=== PATIENT | male | born 1960 | race Caucasian/White ===

== ENCOUNTER → 2017-11-03 | Outpatient (CLI) | payer MEDICARE ==
[~2017-11-03] MED LIST: ACET1TAB25 PO; ADV500 IH; CARB-38 PO; CHOL5POW MC; CYAN1TAB14 PO; DEXL30CA3 PO; DIAZ10TA PO; ERGO500014 PO; FENO54TA6 PO; FLUT16H NASAL; GABA-318 PO; HYDR200T4 PO; MAGN500C15 PO; METO10TA3 PO; MONT10TA24 PO; PRAS50TA PO; PRED20TA3 PO; ROPI0.5T5 PO; SERT100T12 PO; TRAM50TA4 PO; TRAZ-147 PO; TYL3 PO; VITA100T PO; ZALE5CAP6 PO
== END | disposition home or self-care (01) ==
LOC: EDSEX → RAH 08:58 → EDSEX 09:00
PROVIDERS: ATTEND Family Medicine
DX: J44.9 Chronic obstructive pulmonary disease, unspecified (principal); D86.9 Sarcoidosis, unspecified
CPT/HCPCS: 93306

== ENCOUNTER → 2017-11-10 | Outpatient (CLI) | payer MEDICARE | END | disposition home or self-care (01) | LOC: EDSEX → RAH 12:42 | PROVIDERS: ATTEND Family Medicine | DX: J44.9 Chronic obstructive pulmonary disease, unspecified (principal); D86.9 Sarcoidosis, unspecified; R41.3 Other amnesia | CPT/HCPCS: 70551 ==

== ENCOUNTER 2017-12-06 11:22 | Observation (INO) | payer MEDICARE ==
[~2017-12-06] VITALS: Ht 167.6 cm; Wt 75.5 kg
[2017-12-06] MEDS ORDERED: ASPIRIN 325 MG TABLET ONE (11:55)
[2017-12-06 11:58] LABS: BASOPHILS % (AUTO) 0.2 % (0.0-5.0); EOSINOPHILS % (AUTO) 0.1 % (0.0-8.0); HEMATOCRIT 38.4 % (42-54); LYMPHOCYTES % (AUTO) 4.9 % (21.0-51.0); MEAN CORPUSCULAR HEMOGLOBIN 34.3 pg (27.0-33.0); MEAN CORPUSCULAR HGB CONC 35.3 g/dL (32.0-36.0); MEAN CORPUSCULAR VOLUME 97.2 fL (79-99); MONOCYTES % (AUTO) 2.8 % (3.0-13.0); PLATELET COUNT (AUTO) 210 K/uL (130-400); RED BLOOD CELL COUNT(AUTO) 3.95 MIL/uL (4.50-6.20); RED CELL DISTRIBUTION WIDTH 18.2 % (11.0-15.5); WHITE BLOOD COUNT (AUTO) 8.8 K/uL (4.8-10.8)
[2017-12-06 12:06] LABS: POTASSIUM 3.9 mmol/L (3.5-5.1)
[2017-12-06 12:11] LABS: ALBUMIN 3.1 g/dL (3.5-5.0); BILIRUBIN,TOTAL 0.6 mg/dL (0.2-1.0); TOTAL PROTEIN, SERUM 6.3 g/dL (6.0-8.3)
[2017-12-06] MEDS ORDERED: MORPHINE SULFATE 4 MG/1ML SYG ONE (15:22)
[2017-12-06 16:00] VITALS: BP 119/75
[2017-12-06 17:25] LABS: CREATINE KINASE MB < 0.5 ng/mL (0.5-3.6); CREATINE KINASE, TOTAL 22 U/L (21-232); MYOGLOBIN 15 ng/mL (10-92); TROPONIN I < 0.04 ng/mL (0.00-0.06)
[2017-12-06 20:00] VITALS: BP 114/68
[2017-12-06] MEDS: NITROGLYCERIN 1GM/1 INCH PACKET TD SCH (20:32)
[2017-12-06 20:45] LABS: CREATINE KINASE MB < 0.5 ng/mL (0.5-3.6); CREATINE KINASE, TOTAL 22 U/L (21-232); MYOGLOBIN 15 ng/mL (10-92); TROPONIN I < 0.04 ng/mL (0.00-0.06)
[2017-12-06] MEDS ORDERED: NITROGLYCERIN 0.2 MG/HR PATCH TD SCH (21:00)
[2017-12-06] MEDS: MORPHINE SULFATE 4 MG/1ML SYG IV PRN (23:44)
[2017-12-07] VITALS (7 sets, daily range): BP systolic 103–130; BP diastolic 56–75
[2017-12-07] MEDS: NITROGLYCERIN 1GM/1 INCH PACKET TD SCH ×4 (04:01→23:22)
[2017-12-07 05:01] LABS: CREATINE KINASE MB < 0.5 ng/mL (0.5-3.6); CREATINE KINASE, TOTAL 19 U/L (21-232); MYOGLOBIN 16 ng/mL (10-92); TROPONIN I < 0.04 ng/mL (0.00-0.06)
[2017-12-07] MEDS ORDERED: TRAMADOL HCL 50 MG TABLET PO SCH (05:15)
[2017-12-07] MEDS ORDERED: VITA100T PO (05:20)
[2017-12-07] MEDS ORDERED: MAGN500C15 PO (05:20)
[2017-12-07] MEDS ORDERED: TRAM50TA4 PO (05:20)
[2017-12-07] MEDS ORDERED: CHOL5POW MC (05:20)
[2017-12-07] MEDS ORDERED: FLUT16H NASAL (05:20)
[2017-12-07] MEDS ORDERED: METO10TA3 PO (05:20)
[2017-12-07] MEDS ORDERED: PRAS50TA PO (05:20)
[2017-12-07] MEDS ORDERED: ERGO500014 PO (05:20)
[2017-12-07] MEDS ORDERED: ZALE5CAP6 PO (05:20)
[2017-12-07] MEDS ORDERED: TRAZ-147 PO (05:20)
[2017-12-07] MEDS ORDERED: FENO54TA6 PO (05:20)
[2017-12-07] MEDS ORDERED: PRED20TA3 PO (05:20)
[2017-12-07] MEDS ORDERED: CARB-38 PO (05:20)
[2017-12-07] MEDS ORDERED: ROPI0.5T5 PO (05:20)
[2017-12-07] MEDS ORDERED: ADV500 IH (05:20)
[2017-12-07] MEDS ORDERED: DEXL30CA3 PO (05:20)
[2017-12-07] MEDS ORDERED: DIAZ10TA PO (05:20)
[2017-12-07] MEDS: DIAZEPAM 5 MG TABLET PO SCH ×3 (06:45→21:00)
[2017-12-07] MEDS: PRASTERONE 50 MG PO SCH ×2 (09:00→21:00)
[2017-12-07] MEDS: ROPINIROLE HCL 1 MG TABLET PO SCH ×3 (09:00→21:00)
[2017-12-07] MEDS ORDERED: PREDNISONE 20 MG TABLET PO SCH (09:00)
[2017-12-07] MEDS ORDERED: METOCLOPRAMIDE 10 MG TABLET PO SCH (09:00)
[2017-12-07] MEDS ORDERED: CHOLESTYRAMINE MC SCH (09:00)
[2017-12-07] MEDS ORDERED: DEXLANSOPRAZOLE 30 MG PO SCH (09:00)
[2017-12-07] MEDS ORDERED: FENOFIBRATE 54 MG PO SCH (09:00)
[2017-12-07] MEDS ORDERED: FLUTICASONE PROPIONATE 50MCG/SPRAY 16 GM BOTTLE EN SCH (09:00)
[2017-12-07] MEDS ORDERED: ERGOCALCIFEROL (VITAMIN D2) 50,000 UNIT CAPSULE PO SCH (09:00)
[2017-12-07] MEDS ORDERED: IPRATROPIUM/ALBUTEROL SULFATE 3 ML SOLUTION IH ONE (09:50)
[2017-12-07] MEDS ORDERED: BUDESONIDE 0.5 MG/2 ML INH IH ONE (09:51)
[2017-12-07] MEDS: MORPHINE SULFATE 4 MG/1ML SYG IV PRN ×2 (11:02→18:38)
[2017-12-07] MEDS ORDERED: TRAMADOL HCL 50 MG TABLET PO PRN (13:15)
[2017-12-07] MEDS: ALBUTEROL SULFATE 0.083% 2.5 MG/3 ML INH IH SCH ×3 (15:03→23:56)
[2017-12-07] MEDS ORDERED: REGADENOSON 0.4 MG/5 ML PF SYG IVP SCH (15:45)
[2017-12-07] MEDS ORDERED: BUDESONIDE 0.5 MG/2 ML INH IH SCH (18:00)
[2017-12-07] MEDS: VITAMIN B COMPLEX 1 CAPSULE PO SCH ×2 (18:46→21:00)
[2017-12-07] MEDS: CARBIDOPA-LEVODOPA 25-100 TAB PO SCH ×2 (18:47→21:00)
[2017-12-07] MEDS: MAGNESIUM OXIDE 400 MG TABLET PO SCH ×2 (18:47→21:00)
[2017-12-07] MEDS ORDERED: SERT100T12 PO (18:57)
[2017-12-07] MEDS ORDERED: ZALEPLON 5 MG PO SCH (21:00)
[2017-12-07] MEDS ORDERED: TRAZODONE HCL 100 MG TABLET PO SCH (21:00)
[2017-12-08 03:00] VITALS: BP 121/75
[2017-12-08] MEDS: NITROGLYCERIN 1GM/1 INCH PACKET TD SCH (03:00)
[2017-12-08] MEDS: MORPHINE SULFATE 4 MG/1ML SYG IV PRN (05:47)
[2017-12-08] MEDS ORDERED: SERTRALINE HCL 50 MG TABLET PO SCH (09:00)
== END 2017-12-08 08:15 | disposition home or self-care (01) ==
LOC: EDSEX → EDH 11:22 → EDHIP 14:33 → 3CH 15:44
PROVIDERS: ADMIT Internal Medicine; ATTEND Internal Medicine
DX: R07.89 Other chest pain (principal); D86.9 Sarcoidosis, unspecified; I12.9 Hypertensive chronic kidney disease with stage 1 through stage 4 chronic kidney disease, or unspecified chronic kidney disease; N18.9 Chronic kidney disease, unspecified; M47.819 Spondylosis without myelopathy or radiculopathy, site unspecified; J44.9 Chronic obstructive pulmonary disease, unspecified; E78.5 Hyperlipidemia, unspecified; F17.210 Nicotine dependence, cigarettes, uncomplicated; Z79.899 Other long term (current) drug therapy
CPT/HCPCS: 36415 ×2; 70450; 71045; 71250; 72146; 74176; 78452; 80053; 82550 ×4; 82553 ×3; 83874 ×3; 84484 ×5; 85025; 87804 ×2; 93005 ×4; 93017; 94640 ×4; 94664; 96374; 96376 ×2; 99285; A9500 ×2; G0378 ×42; J2270 ×5; J2785

== ENCOUNTER 2018-01-11 22:52 | Inpatient (IN) | payer MEDICARE ==
[~2018-01-11] VITALS: Ht 167.6 cm; Wt 76.4 kg
[~2018-01-11 22:52] MED LIST changes: -ACET1TAB25 PO; -CYAN1TAB14 PO; -GABA-318 PO; -HYDR200T4 PO; -MONT10TA24 PO; -TYL3 PO
[2018-01-11] MEDS ORDERED: ASPIRIN 325 MG TABLET ONE (23:26)
[2018-01-11 23:32] LABS: BASOPHILS % (AUTO) 0.3 % (0.0-5.0); EOSINOPHILS % (AUTO) 0.2 % (0.0-8.0); HEMATOCRIT 36.1 % (42-54); LYMPHOCYTES % (AUTO) 8.9 % (21.0-51.0); MEAN CORPUSCULAR HEMOGLOBIN 31.7 pg (27.0-33.0); MEAN CORPUSCULAR HGB CONC 34.2 g/dL (32.0-36.0); MEAN CORPUSCULAR VOLUME 92.5 fL (79-99); MONOCYTES % (AUTO) 5.7 % (3.0-13.0); NEUTROPHILS % (AUTO) 84.9 % (40.0-77.0); PLATELET COUNT (AUTO) 211 K/uL (130-400); RED BLOOD CELL COUNT(AUTO) 3.91 MIL/uL (4.50-6.20); RED CELL DISTRIBUTION WIDTH 16.2 % (11.0-15.5); WHITE BLOOD COUNT (AUTO) 12.7 K/uL (4.8-10.8)
[2018-01-11 23:46] LABS: CREATININE 0.9 mg/dL (0.5-1.5); POTASSIUM 3.5 mmol/L (3.5-5.1)
[2018-01-11 23:50] LABS: INR 1.27 (0.85-1.15); PARTIAL THROMBOPLASTIN TIME 26.4 SEC (26.3-35.5); PROTHROMBIN TIME 13.3 SEC (9.6-11.6)
[2018-01-12 00:08] LABS: ALBUMIN 3.1 g/dL (3.5-5.0); BILIRUBIN,TOTAL 0.7 mg/dL (0.2-1.0); CREATINE KINASE MB 0.6 ng/mL (0.5-3.6)
[2018-01-12] MEDS ORDERED: MORPHINE SULFATE 4 MG/1ML SYG ONE ×2 (01:20→04:43)
[2018-01-12] MEDS ORDERED: IOPAMIDOL-370 75 ML VIAL IV ONE (01:47)
[2018-01-12 06:38] LABS: BASOPHILS % (AUTO) 0.3 % (0.0-5.0); EOSINOPHILS % (AUTO) 0.8 % (0.0-8.0); HEMATOCRIT 39.8 % (42-54); LYMPHOCYTES % (AUTO) 10.1 % (21.0-51.0); MEAN CORPUSCULAR HEMOGLOBIN 31.6 pg (27.0-33.0); MEAN CORPUSCULAR HGB CONC 34.1 g/dL (32.0-36.0); MEAN CORPUSCULAR VOLUME 92.7 fL (79-99); MONOCYTES % (AUTO) 5.4 % (3.0-13.0); NEUTROPHILS % (AUTO) 83.4 % (40.0-77.0); PLATELET COUNT (AUTO) 211 K/uL (130-400); RED BLOOD CELL COUNT(AUTO) 4.29 MIL/uL (4.50-6.20); RED CELL DISTRIBUTION WIDTH 16.5 % (11.0-15.5)
[2018-01-12 06:45] LABS: CREATININE 1.1 mg/dL (0.5-1.5); POTASSIUM 3.9 mmol/L (3.5-5.1)
[2018-01-12 06:52] LABS: ALBUMIN 3.2 g/dL (3.5-5.0); BILIRUBIN,TOTAL 1.7 mg/dL (0.2-1.0); TOTAL PROTEIN, SERUM 6.1 g/dL (6.0-8.3)
[2018-01-12] MEDS ORDERED: MORPHINE SULFATE 2 MG/ML 1ML SYG ONE (08:22)
[2018-01-12] MEDS: DEXTROSE 5%-LACTATED RINGERS 1,000 ML IV SCH (10:06)
[2018-01-12] MEDS: MORPHINE SULFATE 2 MG/ML 1ML SYG IVP PRN ×2 (10:13→23:01)
[2018-01-12 10:17] VITALS: BP 137/77
[2018-01-12] MEDS ORDERED: HYDROMORPHONE 1 MG/1 ML AMP ONE (13:40)
[2018-01-12] MEDS ORDERED: PROCHLORPERAZINE EDISYLATE 5 MG/ML 2 ML VIAL IVP PRN (15:30)
[2018-01-12] MEDS ORDERED: ZOSYN 3.375GM+NS 50ML 50 ML IV SCH (15:30)
[2018-01-12 16:00] VITALS: BP 115/69
[2018-01-12] MEDS ORDERED: PROCHLORPERAZINE EDISYLATE 10 MG/2 ML VIAL IVP PRN (16:31)
[2018-01-12] MEDS: MEROPENEM 1 GM VIAL IVP SCH (17:35)
[2018-01-12] MEDS: METOCLOPRAMIDE 10 MG TABLET PO PRN (17:36)
[2018-01-12] MEDS: PANTOPRAZOLE SODIUM 40 MG TABLET.DR PO SCH (17:36)
[2018-01-12] MEDS: HYDROMORPHONE 1 MG/1 ML AMP IVP PRN (17:37)
[2018-01-12] MEDS: ALBUTEROL SULFATE 0.083% 2.5 MG/3 ML INH IH SCH ×2 (19:08→23:24)
[2018-01-12] MEDS: BUDESONIDE 0.5 MG/2 ML INH IH SCH (19:15)
[2018-01-12 19:20] VITALS: BP 121/62
[2018-01-12] MEDS: MAGNESIUM OXIDE 500 MG PO SCH (21:00)
[2018-01-12] MEDS: ZOLPIDEM TARTRATE 5 MG TAB PO SCH (21:00)
[2018-01-12] MEDS: **HM**Carbidopa/Levodopa (Carbidopa-Levo 25-100 mg Odt PO SCH (21:00)
[2018-01-12] MEDS: TRAZODONE HCL 100 MG TABLET PO SCH (22:56)
[2018-01-12] MEDS: ROPINIROLE HCL 1 MG TABLET PO SCH (22:56)
[2018-01-12] MEDS: DIAZEPAM 5 MG TABLET PO SCH (22:59)
[2018-01-13] VITALS (7 sets, daily range): BP systolic 102–118; BP diastolic 46–67
[2018-01-13] MEDS: MEROPENEM 1 GM VIAL IVP SCH (02:02)
[2018-01-13] MEDS: DEXTROSE 5%-LACTATED RINGERS 1,000 ML IV SCH (02:05)
[2018-01-13] MEDS: MORPHINE SULFATE 2 MG/ML 1ML SYG IVP PRN ×4 (04:00→20:49)
[2018-01-13 04:58] LABS: HEMATOCRIT 35.6 % (42-54); MEAN CORPUSCULAR HEMOGLOBIN 31.2 pg (27.0-33.0); MEAN CORPUSCULAR HGB CONC 33.6 g/dL (32.0-36.0); MEAN CORPUSCULAR VOLUME 92.8 fL (79-99); PLATELET COUNT (AUTO) 159 K/uL (130-400); RED BLOOD CELL COUNT(AUTO) 3.83 MIL/uL (4.50-6.20); RED CELL DISTRIBUTION WIDTH 16.6 % (11.0-15.5); WHITE BLOOD COUNT (AUTO) 11.6 K/uL (4.8-10.8)
[2018-01-13 05:01] LABS: INR 1.06 (0.85-1.15); PARTIAL THROMBOPLASTIN TIME 25.8 SEC (26.3-35.5); PROTHROMBIN TIME 11.1 SEC (9.6-11.6)
[2018-01-13 05:31] LABS: ALBUMIN 2.6 g/dL (3.5-5.0); BILIRUBIN,TOTAL 1.3 mg/dL (0.2-1.0); CREATININE 0.9 mg/dL (0.5-1.5); MAGNESIUM 1.6 mg/dL (1.80-2.40); PHOSPHORUS 2.3 mg/dL (2.5-4.9); POTASSIUM 3.4 mmol/L (3.5-5.1); TOTAL PROTEIN, SERUM 5.4 g/dL (6.0-8.3)
[2018-01-13] MEDS: ALBUTEROL SULFATE 0.083% 2.5 MG/3 ML INH IH SCH ×3 (07:15→18:50)
[2018-01-13] MEDS: BUDESONIDE 0.5 MG/2 ML INH IH SCH ×2 (07:15→18:50)
[2018-01-13] MEDS: MAGNESIUM OXIDE 500 MG PO SCH ×2 (09:00→21:00)
[2018-01-13] MEDS: **HM**Carbidopa/Levodopa (Carbidopa-Levo 25-100 mg Odt PO SCH ×2 (09:00→21:00)
[2018-01-13] MEDS: ROPINIROLE HCL 1 MG TABLET PO SCH ×3 (09:50→20:56)
[2018-01-13] MEDS: PANTOPRAZOLE SODIUM 40 MG TABLET.DR PO SCH (09:50)
[2018-01-13] MEDS: DIAZEPAM 5 MG TABLET PO SCH ×2 (09:50→20:57)
[2018-01-13] MEDS: SERTRALINE HCL 50 MG TABLET PO SCH (09:50)
[2018-01-13] MEDS: FLUTICASONE PROPIONATE 50MCG/SPRAY 16 GM BOTTLE NS SCH (09:51)
[2018-01-13] MEDS: PREDNISONE 20 MG TABLET PO SCH (09:51)
[2018-01-13] MEDS ORDERED: POTASSIUM PHOS 15 mMOL+NS250ML 250 ML IV SCH (13:00)
[2018-01-13] MEDS ORDERED: POTASSIUM CHLORIDE 10% ELIXIR 20 MEQ/15 ML UDCUP PO PRN (13:00)
[2018-01-13] MEDS ORDERED: LIDOCAINE HCL-MPF 1% 2ML VIAL IVP PRN (13:00)
[2018-01-13] MEDS ORDERED: POTASSIUM CHLORIDE 20 MEQ ERTAB PO PRN (13:00)
[2018-01-13] MEDS ORDERED: POTASSIUM CHLORIDE 20MEQ/100ML 100 ML IV PRN (13:00)
[2018-01-13] MEDS: TRAZODONE HCL 100 MG TABLET PO SCH (20:56)
[2018-01-13] MEDS: ZOLPIDEM TARTRATE 5 MG TAB PO SCH (21:00)
[2018-01-13] MEDS: METOCLOPRAMIDE 10 MG TABLET PO PRN (21:12)
[2018-01-13] MEDS: LACTATED RINGERS 1000ML 1,000 ML IV SCH (21:13)
[2018-01-14] MEDS: MEROPENEM 1 GM VIAL IVP SCH ×3 (00:40→20:08)
[2018-01-14 03:32] VITALS: BP 111/61
[2018-01-14] MEDS: HYDROMORPHONE 1 MG/1 ML AMP IVP PRN (03:45)
[2018-01-14 05:06] LABS: HEMATOCRIT 31.3 % (42-54); MEAN CORPUSCULAR HEMOGLOBIN 32.9 pg (27.0-33.0); MEAN CORPUSCULAR HGB CONC 35.1 g/dL (32.0-36.0); MEAN CORPUSCULAR VOLUME 93.9 fL (79-99); PLATELET COUNT (AUTO) 134 K/uL (130-400); RED BLOOD CELL COUNT(AUTO) 3.33 MIL/uL (4.50-6.20); RED CELL DISTRIBUTION WIDTH 16.3 % (11.0-15.5); WHITE BLOOD COUNT (AUTO) 11.1 K/uL (4.8-10.8)
[2018-01-14 05:24] LABS: INR 1.03 (0.85-1.15); PARTIAL THROMBOPLASTIN TIME 25.9 SEC (26.3-35.5); PROTHROMBIN TIME 10.8 SEC (9.6-11.6)
[2018-01-14 05:38] LABS: ALBUMIN 2.4 g/dL (3.5-5.0); BILIRUBIN,TOTAL 1.6 mg/dL (0.2-1.0); CREATININE 0.8 mg/dL (0.5-1.5); PHOSPHORUS 2.2 mg/dL (2.5-4.9); POTASSIUM 3.5 mmol/L (3.5-5.1); TOTAL PROTEIN, SERUM 5.7 g/dL (6.0-8.3)
[2018-01-14] MEDS: ALBUTEROL SULFATE 0.083% 2.5 MG/3 ML INH IH SCH ×4 (06:27→19:05)
[2018-01-14] MEDS: BUDESONIDE 0.5 MG/2 ML INH IH SCH ×2 (06:34→19:12)
[2018-01-14 08:15] VITALS: BP 109/62
[2018-01-14] MEDS: SERTRALINE HCL 50 MG TABLET PO SCH (09:00)
[2018-01-14] MEDS: FLUTICASONE PROPIONATE 50MCG/SPRAY 16 GM BOTTLE NS SCH (09:00)
[2018-01-14] MEDS: PANTOPRAZOLE SODIUM 40 MG TABLET.DR PO SCH (09:00)
[2018-01-14] MEDS: MAGNESIUM OXIDE 500 MG PO SCH ×2 (09:00→21:00)
[2018-01-14] MEDS: **HM**Carbidopa/Levodopa (Carbidopa-Levo 25-100 mg Odt PO SCH ×2 (09:00→21:00)
[2018-01-14] MEDS: ROPINIROLE HCL 1 MG TABLET PO SCH ×3 (09:00→21:00)
[2018-01-14] MEDS: PREDNISONE 20 MG TABLET PO SCH (09:00)
[2018-01-14] MEDS: DIAZEPAM 5 MG TABLET PO SCH ×2 (09:00→21:00)
[2018-01-14] MEDS: MORPHINE SULFATE 2 MG/ML 1ML SYG IVP PRN ×2 (12:35→17:52)
[2018-01-14 12:38] VITALS: BP 103/55
[2018-01-14] MEDS: LACTATED RINGERS 1000ML 1,000 ML IV SCH ×2 (12:39→17:52)
[2018-01-14 17:04] VITALS: BP 105/56
[2018-01-14 19:30] VITALS: BP 117/69
[2018-01-14] MEDS ORDERED: HYDROMORPHONE HCL 0.5 MG/0.5 ML ML ONE (20:31)
[2018-01-14] MEDS: ZOLPIDEM TARTRATE 5 MG TAB PO SCH (21:00)
[2018-01-14] MEDS: TRAZODONE HCL 100 MG TABLET PO SCH (21:00)
[2018-01-14 23:34] VITALS: BP 127/75
[2018-01-15] MEDS: MORPHINE SULFATE 2 MG/ML 1ML SYG IVP PRN ×5 (01:42→20:29)
[2018-01-15] MEDS: MEROPENEM 1 GM VIAL IVP SCH (01:48)
[2018-01-15] MEDS: LACTATED RINGERS 1000ML 1,000 ML IV SCH ×4 (02:44→20:22)
[2018-01-15 03:56] VITALS: BP 132/76
[2018-01-15] MEDS: ALBUTEROL SULFATE 0.083% 2.5 MG/3 ML INH IH SCH ×5 (06:31→23:42)
[2018-01-15] MEDS: BUDESONIDE 0.5 MG/2 ML INH IH SCH ×2 (06:40→18:00)
[2018-01-15 07:58] VITALS: BP 131/80
[2018-01-15] MEDS: PREDNISONE 20 MG TABLET PO SCH (09:00)
[2018-01-15] MEDS: MAGNESIUM OXIDE 500 MG PO SCH ×2 (09:00→20:30)
[2018-01-15] MEDS: **HM**Carbidopa/Levodopa (Carbidopa-Levo 25-100 mg Odt PO SCH ×2 (09:00→20:30)
[2018-01-15] MEDS: FLUTICASONE PROPIONATE 50MCG/SPRAY 16 GM BOTTLE NS SCH (09:00)
[2018-01-15 11:23] LABS: CREATINE KINASE MB < 0.5 ng/mL (0.5-3.6); CREATINE KINASE, TOTAL 20 U/L (21-232); MYOGLOBIN 32 ng/mL (10-92); TROPONIN I < 0.04 ng/mL (0.00-0.06)
[2018-01-15 12:54] VITALS: BP 120/67
[2018-01-15] MEDS: ROPINIROLE HCL 1 MG TABLET PO SCH ×3 (14:00→20:29)
[2018-01-15] MEDS: PANTOPRAZOLE SODIUM 40 MG TABLET.DR PO SCH (15:23)
[2018-01-15] MEDS: SERTRALINE HCL 50 MG TABLET PO SCH (15:23)
[2018-01-15] MEDS: METOCLOPRAMIDE 10 MG TABLET PO PRN (15:23)
[2018-01-15] MEDS: DIAZEPAM 5 MG TABLET PO SCH ×2 (15:27→20:28)
[2018-01-15] MEDS: METOCLOPRAMIDE 10 MG/2 ML VIAL IVP SCH ×2 (15:38→21:39)
[2018-01-15 16:34] VITALS: BP 109/58
[2018-01-15 19:29] VITALS: BP 119/73
[2018-01-15] MEDS: ZOLPIDEM TARTRATE 5 MG TAB PO SCH (20:29)
[2018-01-15] MEDS: TRAZODONE HCL 100 MG TABLET PO SCH (20:29)
[2018-01-15 23:21] VITALS: BP 93/58
[2018-01-16] MEDS: LACTATED RINGERS 1000ML 1,000 ML IV SCH (03:26)
[2018-01-16 03:38] VITALS: BP 111/66
[2018-01-16] MEDS: MORPHINE SULFATE 2 MG/ML 1ML SYG IVP PRN ×4 (03:49→21:05)
[2018-01-16 05:52] LABS: HEMATOCRIT 30.7 % (42-54); MEAN CORPUSCULAR HEMOGLOBIN 32.5 pg (27.0-33.0); MEAN CORPUSCULAR HGB CONC 34.3 g/dL (32.0-36.0); MEAN CORPUSCULAR VOLUME 94.8 fL (79-99); NUCLEATED RED BLOOD CELLS 0.1 % (0.0-0.19); PLATELET COUNT (AUTO) 141 K/uL (130-400); RED BLOOD CELL COUNT(AUTO) 3.24 MIL/uL (4.50-6.20); RED CELL DISTRIBUTION WIDTH 16.1 % (11.0-15.5); WHITE BLOOD COUNT (AUTO) 6.7 K/uL (4.8-10.8)
[2018-01-16] MEDS: METOCLOPRAMIDE 10 MG/2 ML VIAL IVP SCH ×3 (06:03→22:08)
[2018-01-16 06:07] LABS: ALBUMIN 2.4 g/dL (3.5-5.0); BILIRUBIN,DIRECT 0.4 mg/dL (0.0-0.3); TOTAL PROTEIN, SERUM 5.9 g/dL (6.0-8.3)
[2018-01-16] MEDS: ALBUTEROL SULFATE 0.083% 2.5 MG/3 ML INH IH SCH ×4 (07:00→23:29)
[2018-01-16] MEDS: BUDESONIDE 0.5 MG/2 ML INH IH SCH ×2 (07:00→19:09)
[2018-01-16 08:00] VITALS: BP 100/57
[2018-01-16] MEDS: **HM**Carbidopa/Levodopa (Carbidopa-Levo 25-100 mg Odt PO SCH ×2 (09:00→21:00)
[2018-01-16] MEDS: MAGNESIUM OXIDE 500 MG PO SCH ×2 (09:00→21:00)
[2018-01-16] MEDS: SERTRALINE HCL 50 MG TABLET PO SCH (09:36)
[2018-01-16] MEDS: ROPINIROLE HCL 1 MG TABLET PO SCH ×3 (09:36→22:04)
[2018-01-16] MEDS: PREDNISONE 20 MG TABLET PO SCH (09:36)
[2018-01-16] MEDS: PANTOPRAZOLE SODIUM 40 MG TABLET.DR PO SCH (09:36)
[2018-01-16] MEDS: DIAZEPAM 5 MG TABLET PO SCH ×2 (09:36→22:05)
[2018-01-16] MEDS: FLUTICASONE PROPIONATE 50MCG/SPRAY 16 GM BOTTLE NS SCH (09:40)
[2018-01-16 11:00] VITALS: BP 106/60
[2018-01-16] MEDS ORDERED: POTASSIUM CHLORIDE 20 MEQ in DEXTROSE 5 %-0.45 % NACL 1,000 ML IV SCH (12:15)
[2018-01-16] MEDS: D5W-1/2 NS/20MEQ KCL 1,000 ML IV SCH (13:46)
[2018-01-16 16:00] VITALS: BP 115/67
[2018-01-16 19:00] VITALS: BP 119/67
[2018-01-16] MEDS: ZOLPIDEM TARTRATE 5 MG TAB PO SCH (21:00)
[2018-01-16] MEDS: TRAZODONE HCL 100 MG TABLET PO SCH (22:04)
[2018-01-17] VITALS: BP 110/68
[2018-01-17] MEDS: D5W-1/2 NS/20MEQ KCL 1,000 ML IV SCH ×2 (01:34→02:50)
[2018-01-17] MEDS: MORPHINE SULFATE 2 MG/ML 1ML SYG IVP PRN ×3 (01:56→10:58)
[2018-01-17 04:00] VITALS: BP 103/62
[2018-01-17] MEDS: METOCLOPRAMIDE 10 MG/2 ML VIAL IVP SCH (05:19)
[2018-01-17] MEDS: ALBUTEROL SULFATE 0.083% 2.5 MG/3 ML INH IH SCH ×2 (06:22→11:07)
[2018-01-17] MEDS: BUDESONIDE 0.5 MG/2 ML INH IH SCH (06:22)
[2018-01-17 08:00] VITALS: BP_SYST 112; BP_SYST 116; BP_DIAS 63; BP_DIAS 73
[2018-01-17] MEDS: **HM**Carbidopa/Levodopa (Carbidopa-Levo 25-100 mg Odt PO SCH (09:00)
[2018-01-17] MEDS: MAGNESIUM OXIDE 500 MG PO SCH (09:00)
[2018-01-17] MEDS: PANTOPRAZOLE SODIUM 40 MG TABLET.DR PO SCH (10:07)
[2018-01-17] MEDS: DIAZEPAM 5 MG TABLET PO SCH (10:07)
[2018-01-17] MEDS: ROPINIROLE HCL 1 MG TABLET PO SCH (10:07)
[2018-01-17] MEDS: SERTRALINE HCL 50 MG TABLET PO SCH (10:08)
[2018-01-17] MEDS: PREDNISONE 20 MG TABLET PO SCH (10:08)
[2018-01-17] MEDS: FLUTICASONE PROPIONATE 50MCG/SPRAY 16 GM BOTTLE NS SCH (10:09)
[2018-01-17 11:00] VITALS: BP 108/62
== END 2018-01-17 13:20 | disposition home or self-care (01) | DRG 439 ==
LOC: EDSEX → EDH 22:52 → EDSEX 01-12 05:42 → EDHIP 01-12 05:42 → OBSVTOIN 01-12 05:42 → 3AH 01-12 09:19
PROVIDERS: ADMIT Internal Medicine Critical Care Medicine; ATTEND Internal Medicine Critical Care Medicine
DX: K85.10 Biliary acute pancreatitis without necrosis or infection (principal); E44.1 Mild protein-calorie malnutrition; G20 Parkinson's disease; K74.60 Unspecified cirrhosis of liver; R13.10 Dysphagia, unspecified; K80.50 Calculus of bile duct without cholangitis or cholecystitis without obstruction; Z90.49 Acquired absence of other specified parts of digestive tract; Z98.84 Bariatric surgery status; J44.9 Chronic obstructive pulmonary disease, unspecified; D86.9 Sarcoidosis, unspecified; F32.9 Major depressive disorder, single episode, unspecified; F41.9 Anxiety disorder, unspecified; Z79.52 Long term (current) use of systemic steroids; F10.20 Alcohol dependence, uncomplicated; F17.210 Nicotine dependence, cigarettes, uncomplicated; F64.9 Gender identity disorder, unspecified; I10 Essential (primary) hypertension; Z68.27 Body mass index [BMI] 27.0-27.9, adult; Z88.8 Allergy status to other drugs, medicaments and biological substances
CPT/HCPCS: 36415; 71045; 74177; 74181; 76700; 80053; 80076; 82150; 82550; 82553; 82948; 83605; 83690; 83735; 83874; 84100; 84132; 84484; 85025; 85027; 85610; 85730; 93005; 94640; 94664; 94761; 96374; 96376; A4218; J1170; J2185; J2270; J2765; J3480; J3490; J7042; J7120; Q9967

== ENCOUNTER 2018-02-10 10:43 | Inpatient (IN) | payer MEDICARE ==
[~2018-02-10] VITALS: Ht 167.6 cm; Wt 77.6 kg
[~2018-02-10 10:43] MED LIST changes: -CHOL5POW MC; -DEXL30CA3 PO; -FENO54TA6 PO; -METO10TA3 PO; -PRAS50TA PO; -TRAM50TA4 PO; -TRAZ-147 PO; +TRAZ-187 PO; -VITA100T PO
[2018-02-10 11:11] LABS: APPEARANCE,URINE Clear (CLEAR); BILIRUBIN,URINE Negative (NEGATIVE); COLOR,URINE Yellow (YELLOW); GLUCOSE, URINE (UA) Negative (NEGATIVE); KETONES,URINE Negative (NEGATIVE); LEUKOCYTE ESTERASE ,URINE Negative (NEGATIVE); NITRATE,URINE Negative (NEGATIVE); OCCULT BLOOD,URINE Negative (NEGATIVE); PROTEIN,URINE Negative (NEGATIVE)
[2018-02-10 11:11] LABS: BASOPHILS % (AUTO) 0.5 % (0.0-5.0); EOSINOPHILS % (AUTO) 0.4 % (0.0-8.0); HEMATOCRIT 34.4 % (42-54); MEAN CORPUSCULAR HEMOGLOBIN 28.9 pg (27.0-33.0); MEAN CORPUSCULAR HGB CONC 32.5 g/dL (32.0-36.0); MEAN CORPUSCULAR VOLUME 88.8 fL (79-99); MONOCYTES % (AUTO) 3.5 % (3.0-13.0); NEUTROPHILS % (AUTO) 93.6 % (40.0-77.0); PLATELET COUNT (AUTO) 275 K/uL (130-400); RED BLOOD CELL COUNT(AUTO) 3.88 MIL/uL (4.50-6.20); RED CELL DISTRIBUTION WIDTH 15.9 % (11.0-15.5); WHITE BLOOD COUNT (AUTO) 20.8 K/uL (4.8-10.8)
[2018-02-10] MEDS ORDERED: IPRATROPIUM/ALBUTEROL SULFATE 3 ML SOLUTION IH ONE (11:13)
[2018-02-10] MEDS ORDERED: ZOSYN 3.375GM+NS 50ML 50 ML IV ONE (11:14)
[2018-02-10] MEDS ORDERED: ACETAMINOPHEN 325 MG TAB ONE (11:14)
[2018-02-10 11:21] LABS: POTASSIUM 4.5 mmol/L (3.5-5.1)
[2018-02-10] MEDS ORDERED: KETOROLAC TROMETHAMINE 30MG/ML ONE (11:30)
[2018-02-10] MEDS ORDERED: SODIUM CHLORIDE 0.9% 500ML 500 ML IV ONE ×2 (11:30→12:41)
[2018-02-10 11:31] LABS: INR 0.93 (0.85-1.15); PARTIAL THROMBOPLASTIN TIME 26.4 SEC (26.3-35.5); PROTHROMBIN TIME 9.8 SEC (9.6-11.6)
[2018-02-10 11:31] LABS: ABG BASE EXCESS 0.1 mmol/L (-2.0-3.0); ABG HCO3 23.7 mmol/L (21.0-28.0); ABG OXYGEN SATURATION 96.9 % (95.0-99.0); ABG PCO2 36 mmHg (35-48)
[2018-02-10 11:35] LABS: BILIRUBIN,TOTAL 0.3 mg/dL (0.2-1.0); CREATINE KINASE MB 0.7 ng/mL (0.5-3.6); TOTAL PROTEIN, SERUM 6.9 g/dL (6.0-8.3); TROPONIN I 0.06 ng/mL (0.00-0.06)
[2018-02-10] MEDS ORDERED: MORPHINE SULFATE 4 MG/1ML SYG ONE ×3 (12:00→23:51)
[2018-02-10] MEDS ORDERED: LEVOFLOXACIN 500 MG/D5W 100 ML 100 ML ONE (17:50)
[2018-02-10] MEDS ORDERED: METHYLPREDNISOLONE SOD SUCC 125MG/2ML VIAL ONE (17:50)
[2018-02-10] MEDS ORDERED: SODIUM CHLORIDE 0.9% 50 ML IV ONE (17:51)
[2018-02-10] MEDS ORDERED: CEFTRIAXONE SODIUM 1 GM ONE (17:51)
[2018-02-10] MEDS ORDERED: ENOXAPARIN SODIUM 30 MG/0.3 ML SQ ONE (20:25)
[2018-02-10] MEDS: IPRATROPIUM/ALBUTEROL SULFATE 3 ML SOLUTION IH SCH (21:44)
[2018-02-10 22:30] VITALS: BP 130/70
[2018-02-11] MEDS: IPRATROPIUM/ALBUTEROL SULFATE 3 ML SOLUTION IH SCH ×6 (01:49→22:03)
[2018-02-11 04:15] VITALS: BP 113/67
[2018-02-11] MEDS: METHYLPREDNISOLONE SOD SUCC 125MG/2ML VIAL IVP SCH ×2 (05:59→19:50)
[2018-02-11] MEDS: MORPHINE SULFATE 4 MG/1ML SYG IV PRN ×3 (08:04→20:03)
[2018-02-11 08:07] VITALS: BP 112/62
[2018-02-11] MEDS: ENOXAPARIN SODIUM 30 MG/0.3 ML SQ SCH (08:12)
[2018-02-11 11:48] VITALS: BP 103/64
[2018-02-11] MEDS ORDERED: ALBUTEROL SULFATE 0.083% 2.5 MG/3 ML INH IH SCH (12:00)
[2018-02-11] MEDS: ROPINIROLE HCL 1 MG TABLET PO SCH ×2 (14:13→21:11)
[2018-02-11] MEDS: FLUTICASONE PROPIONATE 50MCG/SPRAY 16 GM BOTTLE NS SCH (14:22)
[2018-02-11] MEDS: ALBUTEROL SULFATE 0.083% 2.5 MG/3 ML INH IH SCH ×3 (14:30→22:00)
[2018-02-11 16:18] VITALS: BP 102/61
[2018-02-11] MEDS ORDERED: FENO54TA6 PO (16:22)
[2018-02-11] MEDS ORDERED: ACET1TAB25 PO (16:22)
[2018-02-11] MEDS ORDERED: CYAN1TAB14 PO (16:22)
[2018-02-11] MEDS ORDERED: HYDR200T4 PO (16:22)
[2018-02-11] MEDS ORDERED: GABA-318 PO (16:22)
[2018-02-11] MEDS ORDERED: MONT10TA24 PO (16:22)
[2018-02-11] MEDS ORDERED: DEXL30CA3 PO (16:22)
[2018-02-11] MEDS: [UNRECOGNIZED DRUG - OTHER] PO SCH (17:00)
[2018-02-11] MEDS: CYANOCOBALAMIN PO SCH (17:00)
[2018-02-11] MEDS: PYRIDOXINE PO SCH (17:00)
[2018-02-11] MEDS: BUDESONIDE 0.5 MG/2 ML INH IH SCH (18:10)
[2018-02-11 19:20] VITALS: BP 106/60
[2018-02-11] MEDS: CEFTRIAXONE SODIUM 1 GM IVP SCH (19:48)
[2018-02-11] MEDS: HYDROXYCHLOROQUINE SULFATE 200 MG TAB PO SCH (19:49)
[2018-02-11] MEDS: LEVOFLOXACIN 500 MG/D5W 100 ML 100 ML IV SCH (19:50)
[2018-02-11] MEDS: [UNRECOGNIZED DRUG - OTHER] PO SCH (21:00)
[2018-02-11] MEDS: GABAPENTIN 300 MG CAPSULE PO SCH (21:10)
[2018-02-11] MEDS: DIAZEPAM 5 MG TABLET PO SCH (21:10)
[2018-02-11] MEDS: MAGNESIUM OXIDE 400 MG TABLET PO SCH (21:11)
[2018-02-11] MEDS: TRAZODONE HCL 100 MG TABLET PO SCH (21:11)
[2018-02-11] MEDS: CARBIDOPA-LEVODOPA 25-100 TAB PO SCH (21:11)
[2018-02-11 23:35] VITALS: BP 97/50
[2018-02-12] MEDS: ALBUTEROL SULFATE 0.083% 2.5 MG/3 ML INH IH SCH ×6 (02:00→22:00)
[2018-02-12] MEDS: IPRATROPIUM/ALBUTEROL SULFATE 3 ML SOLUTION IH SCH ×6 (02:35→21:44)
[2018-02-12 03:21] VITALS: BP 97/53
[2018-02-12] MEDS: METHYLPREDNISOLONE SOD SUCC 125MG/2ML VIAL IVP SCH ×2 (05:30→17:50)
[2018-02-12] MEDS: MORPHINE SULFATE 4 MG/1ML SYG IV PRN ×3 (05:31→20:42)
[2018-02-12] MEDS: BUDESONIDE 0.5 MG/2 ML INH IH SCH ×2 (06:47→18:52)
[2018-02-12 06:54] LABS: HEMATOCRIT 30.3 % (42-54); MEAN CORPUSCULAR HGB CONC 32.4 g/dL (32.0-36.0); MEAN CORPUSCULAR VOLUME 89.6 fL (79-99); NUCLEATED RED BLOOD CELLS 0.1 % (0.0-0.19); PLATELET COUNT (AUTO) 267 K/uL (130-400); RED BLOOD CELL COUNT(AUTO) 3.38 MIL/uL (4.50-6.20); RED CELL DISTRIBUTION WIDTH 16.4 % (11.0-15.5); WHITE BLOOD COUNT (AUTO) 16.1 K/uL (4.8-10.8)
[2018-02-12 07:07] LABS: CREATININE 0.7 mg/dL (0.5-1.5); POTASSIUM 4.5 mmol/L (3.5-5.1)
[2018-02-12 07:55] VITALS: BP 103/69
[2018-02-12] MEDS: FENOFIBRATE 54 MG PO SCH (09:00)
[2018-02-12] MEDS: DIAZEPAM 5 MG TABLET PO SCH ×2 (09:00→20:41)
[2018-02-12] MEDS: ROPINIROLE HCL 1 MG TABLET PO SCH ×3 (09:41→20:41)
[2018-02-12] MEDS: PREDNISONE 20 MG TABLET PO SCH ×2 (09:41→09:52)
[2018-02-12] MEDS: MONTELUKAST SODIUM 10 MG TAB PO SCH (09:41)
[2018-02-12] MEDS: MAGNESIUM OXIDE 400 MG TABLET PO SCH ×2 (09:41→20:40)
[2018-02-12] MEDS: PANTOPRAZOLE SODIUM 40 MG TABLET.DR PO SCH (09:41)
[2018-02-12] MEDS: SERTRALINE HCL 50 MG TABLET PO SCH (09:42)
[2018-02-12] MEDS: ERGOCALCIFEROL (VITAMIN D2) 50,000 UNIT CAPSULE PO SCH (09:42)
[2018-02-12] MEDS: CARBIDOPA-LEVODOPA 25-100 TAB PO SCH ×2 (09:42→20:40)
[2018-02-12] MEDS: FLUTICASONE PROPIONATE 50MCG/SPRAY 16 GM BOTTLE NS SCH (09:44)
[2018-02-12] MEDS: ENOXAPARIN SODIUM 30 MG/0.3 ML SQ SCH (09:46)
[2018-02-12 12:15] VITALS: BP 110/62
[2018-02-12] MEDS ORDERED: ACETYLCYSTEINE 20% 200MG/ML 4ML VIAL PO SCH (14:15)
[2018-02-12 16:01] VITALS: BP 108/69
[2018-02-12] MEDS: PYRIDOXINE PO SCH (17:00)
[2018-02-12] MEDS: [UNRECOGNIZED DRUG - OTHER] PO SCH (17:00)
[2018-02-12] MEDS: CYANOCOBALAMIN PO SCH (17:00)
[2018-02-12] MEDS: HYDROXYCHLOROQUINE SULFATE 200 MG TAB PO SCH (17:50)
[2018-02-12] MEDS: CEFTRIAXONE SODIUM 1 GM IVP SCH (17:50)
[2018-02-12] MEDS: LEVOFLOXACIN 500 MG/D5W 100 ML 100 ML IV SCH (17:51)
[2018-02-12] MEDS: ACETYLCYSTEINE 20% 200MG/ML 4ML VIAL NEB SCH ×2 (18:34→21:44)
[2018-02-12 19:10] VITALS: BP 122/67
[2018-02-12] MEDS: GABAPENTIN 300 MG CAPSULE PO SCH (20:40)
[2018-02-12] MEDS: TRAZODONE HCL 100 MG TABLET PO SCH (20:40)
[2018-02-12] MEDS: [UNRECOGNIZED DRUG - OTHER] PO SCH (20:55)
[2018-02-13] VITALS (7 sets, daily range): BP systolic 108–122; BP diastolic 54–78
[2018-02-13] MEDS: ALBUTEROL SULFATE 0.083% 2.5 MG/3 ML INH IH SCH ×4 (02:00→14:00)
[2018-02-13] MEDS: IPRATROPIUM/ALBUTEROL SULFATE 3 ML SOLUTION IH SCH ×6 (02:33→22:10)
[2018-02-13] MEDS: ACETYLCYSTEINE 20% 200MG/ML 4ML VIAL NEB SCH ×6 (02:33→22:10)
[2018-02-13] MEDS: MORPHINE SULFATE 4 MG/1ML SYG IV PRN ×3 (02:53→17:22)
[2018-02-13] MEDS: METHYLPREDNISOLONE SOD SUCC 125MG/2ML VIAL IVP SCH (05:41)
[2018-02-13] MEDS: BUDESONIDE 0.5 MG/2 ML INH IH SCH ×2 (06:43→19:10)
[2018-02-13 06:52] LABS: HEMATOCRIT 29.6 % (42-54); MEAN CORPUSCULAR HEMOGLOBIN 30.1 pg (27.0-33.0); MEAN CORPUSCULAR HGB CONC 33.8 g/dL (32.0-36.0); MEAN CORPUSCULAR VOLUME 88.9 fL (79-99); NUCLEATED RED BLOOD CELLS 0.1 % (0.0-0.19); PLATELET COUNT (AUTO) 312 K/uL (130-400); RED BLOOD CELL COUNT(AUTO) 3.32 MIL/uL (4.50-6.20); RED CELL DISTRIBUTION WIDTH 15.8 % (11.0-15.5)
[2018-02-13 07:01] LABS: CREATININE 0.7 mg/dL (0.5-1.5); POTASSIUM 4.3 mmol/L (3.5-5.1)
[2018-02-13] MEDS: FLUTICASONE PROPIONATE 50MCG/SPRAY 16 GM BOTTLE NS SCH (09:00)
[2018-02-13] MEDS: FENOFIBRATE 54 MG PO SCH (09:00)
[2018-02-13] MEDS: DIAZEPAM 5 MG TABLET PO SCH ×2 (09:00→23:57)
[2018-02-13] MEDS: ROPINIROLE HCL 1 MG TABLET PO SCH ×3 (10:50→23:58)
[2018-02-13] MEDS: SERTRALINE HCL 50 MG TABLET PO SCH (10:51)
[2018-02-13] MEDS: ERGOCALCIFEROL (VITAMIN D2) 50,000 UNIT CAPSULE PO SCH (10:52)
[2018-02-13] MEDS: PREDNISONE 20 MG TABLET PO SCH ×2 (10:52→23:58)
[2018-02-13] MEDS: MAGNESIUM OXIDE 400 MG TABLET PO SCH ×2 (10:52→23:59)
[2018-02-13] MEDS: PANTOPRAZOLE SODIUM 40 MG TABLET.DR PO SCH (10:52)
[2018-02-13] MEDS: MONTELUKAST SODIUM 10 MG TAB PO SCH (10:52)
[2018-02-13] MEDS: CARBIDOPA-LEVODOPA 25-100 TAB PO SCH ×2 (10:53→23:58)
[2018-02-13] MEDS: ENOXAPARIN SODIUM 30 MG/0.3 ML SQ SCH (10:54)
[2018-02-13] MEDS: PYRIDOXINE PO SCH (15:35)
[2018-02-13] MEDS: CYANOCOBALAMIN PO SCH (15:35)
[2018-02-13] MEDS: [UNRECOGNIZED DRUG - OTHER] PO SCH (15:35)
[2018-02-13] MEDS: CEFTRIAXONE SODIUM 1 GM IVP SCH (17:29)
[2018-02-13] MEDS: HYDROXYCHLOROQUINE SULFATE 200 MG TAB PO SCH (17:29)
[2018-02-13] MEDS: LEVOFLOXACIN 500 MG/D5W 100 ML 100 ML IV SCH (17:31)
[2018-02-13] MEDS: [UNRECOGNIZED DRUG - OTHER] PO SCH (21:00)
[2018-02-13] MEDS: GABAPENTIN 300 MG CAPSULE PO SCH (23:58)
[2018-02-13] MEDS: TRAZODONE HCL 100 MG TABLET PO SCH (23:58)
[2018-02-14 00:10] VITALS: BP 114/61
[2018-02-14] MEDS: ACETYLCYSTEINE 20% 200MG/ML 4ML VIAL NEB SCH ×6 (01:49→21:48)
[2018-02-14] MEDS: IPRATROPIUM/ALBUTEROL SULFATE 3 ML SOLUTION IH SCH ×6 (01:49→21:48)
[2018-02-14 04:24] LABS: MEAN CORPUSCULAR HEMOGLOBIN 28.9 pg (27.0-33.0); MEAN CORPUSCULAR HGB CONC 32.5 g/dL (32.0-36.0); NUCLEATED RED BLOOD CELLS 0.1 % (0.0-0.19); PLATELET COUNT (AUTO) 337 K/uL (130-400); RED CELL DISTRIBUTION WIDTH 16.2 % (11.0-15.5); WHITE BLOOD COUNT (AUTO) 11.1 K/uL (4.8-10.8)
[2018-02-14 04:39] LABS: CREATININE 0.8 mg/dL (0.5-1.5); POTASSIUM 4.4 mmol/L (3.5-5.1)
[2018-02-14] MEDS: ALBUTEROL SULFATE 0.083% 2.5 MG/3 ML INH IH SCH ×2 (06:00→09:40)
[2018-02-14] MEDS: BUDESONIDE 0.5 MG/2 ML INH IH SCH ×2 (06:19→19:32)
[2018-02-14 08:00] VITALS: BP 120/70
[2018-02-14] MEDS: FENOFIBRATE 54 MG PO SCH (09:00)
[2018-02-14] MEDS: ERGOCALCIFEROL (VITAMIN D2) 50,000 UNIT CAPSULE PO SCH (09:00)
[2018-02-14] MEDS: FLUTICASONE PROPIONATE 50MCG/SPRAY 16 GM BOTTLE NS SCH (09:07)
[2018-02-14] MEDS: MORPHINE SULFATE 4 MG/1ML SYG IV PRN ×3 (09:09→15:27)
[2018-02-14] MEDS: DIAZEPAM 5 MG TABLET PO SCH ×2 (09:11→23:14)
[2018-02-14] MEDS: CARBIDOPA-LEVODOPA 25-100 TAB PO SCH ×2 (09:11→23:15)
[2018-02-14] MEDS: MAGNESIUM OXIDE 400 MG TABLET PO SCH ×2 (09:11→23:12)
[2018-02-14] MEDS: SERTRALINE HCL 50 MG TABLET PO SCH (09:11)
[2018-02-14] MEDS: PREDNISONE 20 MG TABLET PO SCH ×2 (09:11→23:15)
[2018-02-14] MEDS: PANTOPRAZOLE SODIUM 40 MG TABLET.DR PO SCH (09:11)
[2018-02-14] MEDS: ENOXAPARIN SODIUM 30 MG/0.3 ML SQ SCH (09:12)
[2018-02-14] MEDS: ROPINIROLE HCL 1 MG TABLET PO SCH ×3 (09:12→23:13)
[2018-02-14] MEDS: MONTELUKAST SODIUM 10 MG TAB PO SCH (09:12)
[2018-02-14 11:34] VITALS: BP 116/68
[2018-02-14] MEDS: ACETAMINOPHEN-CODEINE 300/30MG TAB PO PRN ×2 (12:47→23:27)
[2018-02-14 16:00] VITALS: BP 124/73
[2018-02-14] MEDS: [UNRECOGNIZED DRUG - OTHER] PO SCH (17:00)
[2018-02-14] MEDS: CYANOCOBALAMIN PO SCH (17:00)
[2018-02-14] MEDS: PYRIDOXINE PO SCH (17:00)
[2018-02-14] MEDS: CEFTRIAXONE SODIUM 1 GM IVP SCH (18:09)
[2018-02-14] MEDS: HYDROXYCHLOROQUINE SULFATE 200 MG TAB PO SCH (18:09)
[2018-02-14] MEDS: LEVOFLOXACIN 500 MG/D5W 100 ML 100 ML IV SCH (18:15)
[2018-02-14 19:00] VITALS: BP 102/59
[2018-02-14] MEDS: [UNRECOGNIZED DRUG - OTHER] PO SCH (21:00)
[2018-02-14] MEDS: GABAPENTIN 300 MG CAPSULE PO SCH (23:14)
[2018-02-14] MEDS: TRAZODONE HCL 100 MG TABLET PO SCH (23:15)
[2018-02-15] VITALS: BP 109/67
[2018-02-15] MEDS: IPRATROPIUM/ALBUTEROL SULFATE 3 ML SOLUTION IH SCH ×3 (01:20→10:09)
[2018-02-15] MEDS: ACETYLCYSTEINE 20% 200MG/ML 4ML VIAL NEB SCH ×3 (01:21→10:09)
[2018-02-15 02:35] VITALS: BP 112/73
[2018-02-15] MEDS: MORPHINE SULFATE 4 MG/1ML SYG IV PRN ×2 (02:39→09:31)
[2018-02-15 04:00] VITALS: BP 103/52
[2018-02-15 06:19] LABS: HEMATOCRIT 33.5 % (42-54); MEAN CORPUSCULAR HEMOGLOBIN 28.1 pg (27.0-33.0); MEAN CORPUSCULAR HGB CONC 31.5 g/dL (32.0-36.0); MEAN CORPUSCULAR VOLUME 89.1 fL (79-99); NUCLEATED RED BLOOD CELLS 0.1 % (0.0-0.19); PLATELET COUNT (AUTO) 351 K/uL (130-400); RED BLOOD CELL COUNT(AUTO) 3.76 MIL/uL (4.50-6.20); RED CELL DISTRIBUTION WIDTH 16.2 % (11.0-15.5); WHITE BLOOD COUNT (AUTO) 13.8 K/uL (4.8-10.8)
[2018-02-15] MEDS: BUDESONIDE 0.5 MG/2 ML INH IH SCH (06:29)
[2018-02-15 06:35] LABS: CREATININE 0.9 mg/dL (0.5-1.5); POTASSIUM 5.2 mmol/L (3.5-5.1)
[2018-02-15 08:18] VITALS: BP 118/59
[2018-02-15 08:21] VITALS: BP 99/67
[2018-02-15] MEDS: FENOFIBRATE 54 MG PO SCH (09:00)
[2018-02-15] MEDS: MONTELUKAST SODIUM 10 MG TAB PO SCH (09:23)
[2018-02-15] MEDS: PANTOPRAZOLE SODIUM 40 MG TABLET.DR PO SCH (09:23)
[2018-02-15] MEDS: PREDNISONE 20 MG TABLET PO SCH (09:24)
[2018-02-15] MEDS: SERTRALINE HCL 50 MG TABLET PO SCH (09:24)
[2018-02-15] MEDS: ROPINIROLE HCL 1 MG TABLET PO SCH (09:24)
[2018-02-15] MEDS: MAGNESIUM OXIDE 400 MG TABLET PO SCH (09:24)
[2018-02-15] MEDS: CARBIDOPA-LEVODOPA 25-100 TAB PO SCH (09:24)
[2018-02-15] MEDS: ERGOCALCIFEROL (VITAMIN D2) 50,000 UNIT CAPSULE PO SCH (09:24)
[2018-02-15] MEDS: DIAZEPAM 5 MG TABLET PO SCH (09:25)
[2018-02-15] MEDS: ENOXAPARIN SODIUM 30 MG/0.3 ML SQ SCH (09:31)
[2018-02-15] MEDS: FLUTICASONE PROPIONATE 50MCG/SPRAY 16 GM BOTTLE NS SCH (09:37)
== END 2018-02-15 10:35 | disposition home or self-care (01) | DRG 871 ==
LOC: EDSEX → EDH 10:43 → EDHIP 14:26 → OBSVTOIN 14:26 → 3CH 22:25
PROVIDERS: ADMIT Internal Medicine; ATTEND Internal Medicine
DX: A41.9 Sepsis, unspecified organism (principal); J18.9 Pneumonia, unspecified organism; J96.90 Respiratory failure, unspecified, unspecified whether with hypoxia or hypercapnia; J44.0 Chronic obstructive pulmonary disease with (acute) lower respiratory infection; J44.1 Chronic obstructive pulmonary disease with (acute) exacerbation; Z88.1 Allergy status to other antibiotic agents; Z88.2 Allergy status to sulfonamides; Z88.8 Allergy status to other drugs, medicaments and biological substances
CPT/HCPCS: 36415; 36600; 71045; 71250; 80048; 80053; 81003; 82550; 82553; 82803; 83605; 83874; 83880; 84484; 85025; 85027; 85610; 85730; 87040; 87071; 87088; 87106; 87205; 87804; 93005; 94640; 94664; 94760; 99291; A4218; J0696; J1650; J1885; J1956; J2270; J2543; J2930; J7040; J7608

== ENCOUNTER 2018-03-11 14:54 | Emergency (ER) | payer MEDICARE ==
[~2018-03-11 14:54] MED LIST changes: +ACET1TAB25 PO; +CYAN1TAB14 PO; +DEXL30CA3 PO; +FENO54TA6 PO; +GABA-318 PO; +HYDR200T4 PO; +MONT10TA24 PO
[2018-03-11] MEDS ORDERED: MORPHINE SULFATE 4 MG/1ML SYG ONE (15:08)
[2018-03-11] MEDS ORDERED: ASPIRIN 325 MG TABLET ONE (15:09)
[2018-03-11 15:12] LABS: BASOPHILS % (AUTO) 0.6 % (0.0-5.0); EOSINOPHILS % (AUTO) 0.6 % (0.0-8.0); HEMATOCRIT 35.1 % (42-54); LYMPHOCYTES % (AUTO) 10.2 % (21.0-51.0); MEAN CORPUSCULAR HEMOGLOBIN 28.5 pg (27.0-33.0); MEAN CORPUSCULAR HGB CONC 33.4 g/dL (32.0-36.0); MEAN CORPUSCULAR VOLUME 85.2 fL (79-99); MONOCYTES % (AUTO) 4.9 % (3.0-13.0); NEUTROPHILS % (AUTO) 83.7 % (40.0-77.0); NUCLEATED RED BLOOD CELLS 0.1 % (0.0-0.19); PLATELET COUNT (AUTO) 284 K/uL (130-400); RED BLOOD CELL COUNT(AUTO) 4.12 MIL/uL (4.50-6.20); RED CELL DISTRIBUTION WIDTH 18.7 % (11.0-15.5); WHITE BLOOD COUNT (AUTO) 8.8 K/uL (4.8-10.8)
[2018-03-11 15:30] LABS: PARTIAL THROMBOPLASTIN TIME 22.3 SEC (26.3-35.5); PROTHROMBIN TIME 10.5 SEC (9.6-11.6)
[2018-03-11 15:32] LABS: AMYLASE 98 U/L (25-115); CARBON DIOXIDE 32 mmol/L (21-32); CHLORIDE 103 mmol/L (101-111); CREATININE 0.9 mg/dL (0.5-1.5); GLOMERULAR FILTR. RATE CALC 93 mL/min (>60); GLUCOSE,RANDOM 138 mg/dL (70-105); LIPASE 104 U/L (114-286); SODIUM SERUM 142 mmol/L (136-145); UREA NITROGEN, BLOOD 11 mg/dL (7-18)
[2018-03-11 15:49] LABS: ALANINE AMINOTRANSFERASE 93 U/L (12-78); ALBUMIN 3.6 g/dL (3.5-5.0); ASPARTATE AMINOTRANSFERASE 56 U/L (10-37); BILIRUBIN,TOTAL 0.5 mg/dL (0.2-1.0); CREATINE KINASE MB < 0.5 ng/mL (0.5-3.6); CREATINE KINASE, TOTAL 24 U/L (21-232); MYOGLOBIN 25 ng/mL (10-92); TOTAL PROTEIN, SERUM 7.2 g/dL (6.0-8.3)
[2018-03-11] MEDS ORDERED: ACETAMINOPHEN-CODEINE 300/30MG TAB ONE (16:45)
[2018-03-11] MEDS ORDERED: MAG HYDROX/AL HYDROX/SIMETH ES 30 ML SUSP UDCUP ONE (16:45)
[2018-03-11] MEDS ORDERED: LIDOCAINE HCL 2% VISCOUS 15 ML UDCUP ONE (16:45)
== END 2018-03-11 19:56 | disposition home or self-care (01) ==
LOC: EDSEX → EDH 14:54 → EDSEX 14:54 → EDH 19:56
DX: R07.89 Other chest pain (principal); B37.81 Candidal esophagitis; D86.0 Sarcoidosis of lung; Z88.1 Allergy status to other antibiotic agents; Z88.6 Allergy status to analgesic agent; Z88.8 Allergy status to other drugs, medicaments and biological substances; Z98.84 Bariatric surgery status
CPT/HCPCS: 36415; 71045; 80053; 82150; 82550; 82553; 83690; 83874; 84484 ×2; 85025; 85378; 85610; 85730; 93005 ×2; 93970; 96374; 99285; J2270

== ENCOUNTER 2018-03-29 22:36 | Emergency (ER) | payer MEDICARE ==
[2018-03-29 23:35] LABS: BASOPHILS % (AUTO) 0.4 % (0.0-5.0); EOSINOPHILS % (AUTO) 1.1 % (0.0-8.0); HEMATOCRIT 39.9 % (36-48); LYMPHOCYTES % (AUTO) 11.2 % (21.0-51.0); MEAN CORPUSCULAR HEMOGLOBIN 26.6 pg (27.0-33.0); MEAN CORPUSCULAR HGB CONC 32.9 g/dL (32.0-36.0); MEAN CORPUSCULAR VOLUME 80.8 fL (79-99); MONOCYTES % (AUTO) 10.3 % (3.0-13.0); PLATELET COUNT (AUTO) 312 K/uL (130-400); RED BLOOD CELL COUNT(AUTO) 4.94 MIL/uL (4.00-5.50); WHITE BLOOD COUNT (AUTO) 9.8 K/uL (4.8-10.8)
[2018-03-29 23:39] LABS: CREATININE 0.9 mg/dL (0.5-1.5); POTASSIUM 3.9 mmol/L (3.5-5.1)
[2018-03-29 23:43] LABS: ALBUMIN 3.6 g/dL (3.5-5.0); BILIRUBIN,TOTAL 0.5 mg/dL (0.2-1.0); TOTAL PROTEIN, SERUM 6.6 g/dL (6.0-8.3)
[2018-03-30 00:47] LABS: ERYTHROCYTE SEDIMENTATION RATE 1 MM/HR (0-15)
== END 2018-03-30 00:34 | disposition home or self-care (01) ==
LOC: EDSEX → EDH 22:36
DX: D86.9 Sarcoidosis, unspecified (principal); E86.0 Dehydration; Z88.1 Allergy status to other antibiotic agents; Z88.6 Allergy status to analgesic agent; Z98.890 Other specified postprocedural states
CPT/HCPCS: 36415; 80053; 83605; 85025; 85651; 86140; 96360

== ENCOUNTER 2018-04-05 16:59 | Inpatient (IN) | payer MEDICARE ==
[~2018-04-05] VITALS: Ht 167.6 cm; Wt 75.1 kg
[2018-04-05 17:36] LABS: APPEARANCE,URINE Clear (CLEAR); BILIRUBIN,URINE Negative (NEGATIVE); COLOR,URINE Yellow (YELLOW); GLUCOSE, URINE (UA) Negative (NEGATIVE); KETONES,URINE Negative (NEGATIVE); LEUKOCYTE ESTERASE ,URINE Negative (NEGATIVE); NITRATE,URINE Negative (NEGATIVE); OCCULT BLOOD,URINE Negative (NEGATIVE); PROTEIN,URINE Negative (NEGATIVE)
[2018-04-05] MEDS ORDERED: METOCLOPRAMIDE 10 MG/2 ML VIAL ONE (17:48)
[2018-04-05] MEDS ORDERED: HYDROMORPHONE HCL 0.5 MG/0.5 ML ML ONE ×4 (17:49→23:14)
[2018-04-05] MEDS ORDERED: LACTATED RINGERS 1000ML 1,000 ML IV ONE (17:50)
[2018-04-05 17:51] LABS: BASOPHILS % (AUTO) 0.6 % (0.0-5.0); EOSINOPHILS % (AUTO) 0.1 % (0.0-8.0); HEMATOCRIT 40.8 % (42-54); LYMPHOCYTES % (AUTO) 4.4 % (21.0-51.0); MEAN CORPUSCULAR HEMOGLOBIN 26.2 pg (27.0-33.0); MEAN CORPUSCULAR HGB CONC 32.6 g/dL (32.0-36.0); MEAN CORPUSCULAR VOLUME 80.5 fL (79-99); MONOCYTES % (AUTO) 3.3 % (3.0-13.0); NEUTROPHILS % (AUTO) 91.6 % (40.0-77.0); PLATELET COUNT (AUTO) 211 K/uL (130-400); RED BLOOD CELL COUNT(AUTO) 5.07 MIL/uL (4.50-6.20); WHITE BLOOD COUNT (AUTO) 11.2 K/uL (4.8-10.8)
[2018-04-05 18:00] LABS: CREATININE 1.1 mg/dL (0.5-1.5); POTASSIUM 3.7 mmol/L (3.5-5.1)
[2018-04-05 18:05] LABS: ALBUMIN 3.8 g/dL (3.5-5.0); BILIRUBIN,TOTAL 1.9 mg/dL (0.2-1.0); TOTAL PROTEIN, SERUM 6.9 g/dL (6.0-8.3)
[2018-04-06] MEDS: DEXTROSE 5 %-0.45 % NACL 1,000 ML IV SCH ×3 (02:52→20:42)
[2018-04-06] MEDS: HYDROMORPHONE HCL 0.5 MG/0.5 ML ML IVP PRN ×2 (02:53→06:52)
[2018-04-06 04:00] VITALS: BP 144/75
[2018-04-06 05:20] LABS: HEMATOCRIT 33.9 % (42-54); MEAN CORPUSCULAR HEMOGLOBIN 27.2 pg (27.0-33.0); MEAN CORPUSCULAR HGB CONC 33.7 g/dL (32.0-36.0); MEAN CORPUSCULAR VOLUME 80.8 fL (79-99); PLATELET COUNT (AUTO) 190 K/uL (130-400); RED CELL DISTRIBUTION WIDTH 18.8 % (11.0-15.5); WHITE BLOOD COUNT (AUTO) 8.5 K/uL (4.8-10.8)
[2018-04-06 05:42] LABS: ALBUMIN 2.9 g/dL (3.5-5.0); BILIRUBIN,TOTAL 1.7 mg/dL (0.2-1.0); CREATININE 0.8 mg/dL (0.5-1.5); POTASSIUM 3.6 mmol/L (3.5-5.1); TOTAL PROTEIN, SERUM 5.4 g/dL (6.0-8.3)
[2018-04-06 07:36] LABS: CREATINE KINASE MB < 0.5 ng/mL (0.5-3.6); CREATINE KINASE, TOTAL 30 U/L (21-232); MYOGLOBIN 23 ng/mL (10-92); TROPONIN I < 0.04 ng/mL (0.00-0.06)
[2018-04-06 08:00] VITALS: BP 136/73
[2018-04-06] MEDS ORDERED: PANTOPRAZOLE SODIUM 40 MG TABLET.DR PO SCH (09:00)
[2018-04-06] MEDS: FAMOTIDINE/PF 20 MG/2 ML VIAL IV SCH ×2 (09:11→20:42)
[2018-04-06] MEDS: HYDROMORPHONE 1 MG/1 ML AMP IVP PRN ×4 (09:12→20:42)
[2018-04-06 11:20] VITALS: BP 143/77
[2018-04-06 13:30] LABS: CREATINE KINASE MB 0.7 ng/mL (0.5-3.6); CREATINE KINASE, TOTAL 30 U/L (21-232); MYOGLOBIN 24 ng/mL (10-92); TROPONIN I < 0.04 ng/mL (0.00-0.06)
[2018-04-06 16:00] VITALS: BP 117/70
[2018-04-06 19:22] VITALS: BP 153/90
[2018-04-06 19:25] VITALS: BP 135/82
[2018-04-07] VITALS (7 sets, daily range): BP systolic 109–132; BP diastolic 64–69
[2018-04-07] MEDS: HYDROMORPHONE 1 MG/1 ML AMP IVP PRN ×6 (01:40→20:32)
[2018-04-07 05:43] LABS: HEMATOCRIT 32.6 % (42-54); MEAN CORPUSCULAR HEMOGLOBIN 26.7 pg (27.0-33.0); PLATELET COUNT (AUTO) 142 K/uL (130-400); RED BLOOD CELL COUNT(AUTO) 4.03 MIL/uL (4.50-6.20); RED CELL DISTRIBUTION WIDTH 18.8 % (11.0-15.5); WHITE BLOOD COUNT (AUTO) 10.5 K/uL (4.8-10.8)
[2018-04-07 06:00] LABS: ALBUMIN 2.6 g/dL (3.5-5.0); CREATININE 0.8 mg/dL (0.5-1.5); POTASSIUM 3.7 mmol/L (3.5-5.1); TOTAL PROTEIN, SERUM 5.4 g/dL (6.0-8.3)
[2018-04-07] MEDS: DEXTROSE 5 %-0.45 % NACL 1,000 ML IV SCH ×4 (06:04→20:45)
[2018-04-07] MEDS: FAMOTIDINE/PF 20 MG/2 ML VIAL IV SCH ×2 (09:33→20:30)
[2018-04-08] MEDS: DEXTROSE 5 %-0.45 % NACL 1,000 ML IV SCH ×2 (01:46→13:30)
[2018-04-08] MEDS: HYDROMORPHONE 1 MG/1 ML AMP IVP PRN (02:36)
[2018-04-08 03:00] VITALS: BP 115/73
[2018-04-08 05:25] LABS: HEMATOCRIT 32.6 % (42-54); MEAN CORPUSCULAR HGB CONC 32.9 g/dL (32.0-36.0); PLATELET COUNT (AUTO) 139 K/uL (130-400); RED BLOOD CELL COUNT(AUTO) 3.97 MIL/uL (4.50-6.20); RED CELL DISTRIBUTION WIDTH 19.1 % (11.0-15.5); WHITE BLOOD COUNT (AUTO) 7.8 K/uL (4.8-10.8)
[2018-04-08 05:42] LABS: ALBUMIN 2.6 g/dL (3.5-5.0); BILIRUBIN,TOTAL 0.8 mg/dL (0.2-1.0); CREATININE 0.8 mg/dL (0.5-1.5); POTASSIUM 3.5 mmol/L (3.5-5.1); TOTAL PROTEIN, SERUM 5.6 g/dL (6.0-8.3)
[2018-04-08] MEDS ORDERED: MORPHINE SULFATE 2 MG/ML 1ML SYG IVP PRN (07:30)
[2018-04-08 08:00] VITALS: BP 116/67
[2018-04-08] MEDS: FAMOTIDINE/PF 20 MG/2 ML VIAL IV SCH ×2 (09:35→21:28)
[2018-04-08] MEDS: MORPHINE SULFATE 4 MG/1ML SYG IVP PRN ×4 (09:38→23:19)
[2018-04-08 12:00] VITALS: BP 115/55
[2018-04-08 16:00] VITALS: BP 114/70
[2018-04-08 19:08] VITALS: BP 136/85
[2018-04-08 23:07] VITALS: BP 137/51
[2018-04-09 03:07] VITALS: BP 100/52
[2018-04-09] MEDS: DEXTROSE 5 %-0.45 % NACL 1,000 ML IV SCH (03:57)
[2018-04-09 05:05] LABS: HEMATOCRIT 32.2 % (42-54); MEAN CORPUSCULAR HEMOGLOBIN 26.6 pg (27.0-33.0); MEAN CORPUSCULAR HGB CONC 32.4 g/dL (32.0-36.0); MEAN CORPUSCULAR VOLUME 81.9 fL (79-99); PLATELET COUNT (AUTO) 137 K/uL (130-400); RED BLOOD CELL COUNT(AUTO) 3.93 MIL/uL (4.50-6.20); RED CELL DISTRIBUTION WIDTH 18.9 % (11.0-15.5); WHITE BLOOD COUNT (AUTO) 6.2 K/uL (4.8-10.8)
[2018-04-09 05:24] LABS: ALBUMIN 2.3 g/dL (3.5-5.0); BILIRUBIN,TOTAL 0.4 mg/dL (0.2-1.0); CREATININE 0.8 mg/dL (0.5-1.5); POTASSIUM 3.6 mmol/L (3.5-5.1); TOTAL PROTEIN, SERUM 5.4 g/dL (6.0-8.3)
[2018-04-09] MEDS: MORPHINE SULFATE 4 MG/1ML SYG IVP PRN (07:11)
[2018-04-09 08:14] VITALS: BP 110/73
[2018-04-09] MEDS: FAMOTIDINE/PF 20 MG/2 ML VIAL IV SCH (09:34)
[2018-04-09] MEDS ORDERED: TYL3 PO (10:38)
== END 2018-04-09 11:00 | disposition home or self-care (01) | DRG 440 ==
LOC: EDH 16:59 → EDHIP 18:45 → 3CH 04-06 02:03
PROVIDERS: ADMIT Internal Medicine; ATTEND Internal Medicine
DX: K85.90 Acute pancreatitis without necrosis or infection, unspecified (principal); I25.10 Atherosclerotic heart disease of native coronary artery without angina pectoris; E86.0 Dehydration; J44.9 Chronic obstructive pulmonary disease, unspecified; K83.8 Other specified diseases of biliary tract; D64.9 Anemia, unspecified; E78.5 Hyperlipidemia, unspecified; E87.6 Hypokalemia; G20 Parkinson's disease; I12.9 Hypertensive chronic kidney disease with stage 1 through stage 4 chronic kidney disease, or unspecified chronic kidney disease; N18.9 Chronic kidney disease, unspecified; Z98.84 Bariatric surgery status; Z87.891 Personal history of nicotine dependence; Z90.49 Acquired absence of other specified parts of digestive tract
CPT/HCPCS: 36415; 74176; 74181; 80053; 81003; 82550; 82553; 83605; 83690; 83874; 84484; 85025; 85027; 93005; C9113; J1170; J2270; J2765; J3490; J7042; J7120

== ENCOUNTER 2018-07-26 15:33 | Emergency (ER) | payer MEDICARE ==
[~2018-07-26 15:33] MED LIST changes: +TYL3 PO
[2018-07-26 15:52] LABS: APPEARANCE,URINE Clear (CLEAR); BILIRUBIN,URINE Negative (NEGATIVE); COLOR,URINE Yellow (YELLOW); GLUCOSE, URINE (UA) Negative (NEGATIVE); KETONES,URINE Negative (NEGATIVE); LEUKOCYTE ESTERASE ,URINE Small (NEGATIVE); NITRATE,URINE Negative (NEGATIVE); OCCULT BLOOD,URINE Negative (NEGATIVE); PROTEIN,URINE Negative (NEGATIVE); UROBILINOGEN,URINE 0.2 mg/dL (0.2-1.0)
[2018-07-26 16:06] LABS: BACTERIA,URINE Few /HPF (None Seen); RBC,URINE 0-1 /HPF (0-1)
[2018-07-26 16:07] LABS: BASOPHILS % (AUTO) 0.5 % (0.0-5.0); EOSINOPHILS % (AUTO) 0.4 % (0.0-8.0); HEMATOCRIT 39.3 % (42-54); LYMPHOCYTES % (AUTO) 6.8 % (21.0-51.0); MEAN CORPUSCULAR HEMOGLOBIN 26.9 pg (27.0-33.0); MEAN CORPUSCULAR HGB CONC 32.5 g/dL (32.0-36.0); MEAN CORPUSCULAR VOLUME 82.8 fL (79-99); MONOCYTES % (AUTO) 2.9 % (3.0-13.0); NEUTROPHILS % (AUTO) 89.4 % (40.0-77.0); PLATELET COUNT (AUTO) 273 K/uL (130-400); RED BLOOD CELL COUNT(AUTO) 4.75 MIL/uL (4.50-6.20); RED CELL DISTRIBUTION WIDTH 16.3 % (11.0-15.5); WHITE BLOOD COUNT (AUTO) 8.1 K/uL (4.8-10.8)
[2018-07-26 16:08] LABS: MUCUS,URINE None Seen LPF (None Seen)
[2018-07-26] MEDS ORDERED: ONDANSETRON HCL 4 MG/2 ML VIAL ONE (16:14)
[2018-07-26] MEDS ORDERED: SODIUM CHLORIDE 0.9% 1000ML 2,000 ML IV ONE (16:15)
[2018-07-26] MEDS ORDERED: MORPHINE SULFATE 4 MG/1ML SYG ONE (16:15)
[2018-07-26 16:18] LABS: CREATININE 0.8 mg/dL (0.5-1.5); POTASSIUM 4.3 mmol/L (3.5-5.1)
[2018-07-26 16:22] LABS: ALBUMIN 3.7 g/dL (3.5-5.0); BILIRUBIN,TOTAL 0.3 mg/dL (0.2-1.0); TOTAL PROTEIN, SERUM 7.7 g/dL (6.0-8.3)
== END 2018-07-26 18:08 | disposition home or self-care (01) ==
LOC: EDH 15:33 → EDSEX 15:33 → EDH 18:08
DX: R10.32 Left lower quadrant pain (principal); D86.9 Sarcoidosis, unspecified; R05 Cough; Z87.442 Personal history of urinary calculi; Z88.1 Allergy status to other antibiotic agents; Z88.6 Allergy status to analgesic agent; Z72.0 Tobacco use; Z98.890 Other specified postprocedural states
CPT/HCPCS: 36415; 74176; 80053; 81001; 83690; 85025; 96374; 99285; J2270; J2405; J7030

== ENCOUNTER 2018-09-13 15:26 | Emergency (ER) | payer MEDICARE ==
[2018-09-13 15:59] LABS: CREATININE 0.8 mg/dL (0.5-1.5); POTASSIUM 4.4 mmol/L (3.5-5.1)
[2018-09-13 16:02] LABS: BASOPHILS % (AUTO) 1.2 % (0.0-5.0); EOSINOPHILS % (AUTO) 0.2 % (0.0-8.0); INR 0.92 (0.85-1.15); LYMPHOCYTES % (AUTO) 8.3 % (21.0-51.0); MEAN CORPUSCULAR HEMOGLOBIN 25.9 pg (27.0-33.0); MEAN CORPUSCULAR VOLUME 80.9 fL (79-99); MONOCYTES % (AUTO) 2.8 % (3.0-13.0); NEUTROPHILS % (AUTO) 87.5 % (40.0-77.0); NUCLEATED RED BLOOD CELLS 0.1 % (0.0-0.19); PARTIAL THROMBOPLASTIN TIME 24.3 SEC (26.3-35.5); PLATELET COUNT (AUTO) 218 K/uL (130-400); PROTHROMBIN TIME 9.7 SEC (9.6-11.6); RED CELL DISTRIBUTION WIDTH 19.1 % (11.0-15.5); WHITE BLOOD COUNT (AUTO) 6.4 K/uL (4.8-10.8)
[2018-09-13 16:04] LABS: ALBUMIN 4.1 g/dL (3.5-5.0); BILIRUBIN,TOTAL 0.3 mg/dL (0.2-1.0); TOTAL PROTEIN, SERUM 7.4 g/dL (6.0-8.3)
[2018-09-13] MEDS ORDERED: MORPHINE SULFATE 4 MG/1ML SYG ONE (16:22)
== END 2018-09-13 17:30 | disposition home or self-care (01) ==
LOC: EDH 15:26
CPT/HCPCS: 36415; 71045; 80053; 82550; 83690; 84484; 85025; 85610; 85730; 93005; 96374; J2270

== ENCOUNTER 2018-11-12 12:00 | Observation (INO) | payer MEDICARE ==
[~2018-11-12] VITALS: Ht 167.6 cm; Wt 78.0 kg
[~2018-11-12 12:00] MED LIST changes: -GABA-318 PO; +GABA600T10 PO
[2018-11-12 12:48] LABS: BASOPHILS % (AUTO) 0.9 % (0.0-5.0); EOSINOPHILS % (AUTO) 4.9 % (0.0-8.0); LYMPHOCYTES % (AUTO) 8.5 % (21.0-51.0); MEAN CORPUSCULAR HEMOGLOBIN 24.8 pg (27.0-33.0); MEAN CORPUSCULAR HGB CONC 30.4 g/dL (32.0-36.0); MEAN CORPUSCULAR VOLUME 81.5 fL (79-99); MONOCYTES % (AUTO) 6.4 % (3.0-13.0); NEUTROPHILS % (AUTO) 79.3 % (40.0-77.0); PLATELET COUNT (AUTO) 285 K/uL (130-400); RED BLOOD CELL COUNT(AUTO) 4.05 MIL/uL (4.00-5.50); RED CELL DISTRIBUTION WIDTH 18.2 % (11.0-15.5); WHITE BLOOD COUNT (AUTO) 9.7 K/uL (4.8-10.8)
[2018-11-12 13:03] LABS: INR 0.96 (0.85-1.15); PARTIAL THROMBOPLASTIN TIME 22.2 SEC (26.3-35.5); PROTHROMBIN TIME 10.1 SEC (9.6-11.6)
[2018-11-12 13:04] LABS: POTASSIUM 4.6 mmol/L (3.5-5.1)
[2018-11-12 13:09] LABS: ALBUMIN 3.1 g/dL (3.5-5.0); BILIRUBIN,TOTAL 0.3 mg/dL (0.2-1.0); TOTAL PROTEIN, SERUM 6.5 g/dL (6.0-8.3)
[2018-11-12] MEDS ORDERED: SODIUM CHLORIDE 0.9% 1000ML 1,000 ML IV ONE (13:26)
[2018-11-12] MEDS ORDERED: LEVOFLOXACIN 750 MG/D5W 150 ML 150 ML ONE (13:26)
[2018-11-12] MEDS ORDERED: METHYLPREDNISOLONE SOD SUCC 125MG/2ML VIAL ONE (13:31)
[2018-11-12] MEDS ORDERED: IPRATROPIUM/ALBUTEROL SULFATE 3 ML SOLUTION IH ONE ×2 (13:34→15:13)
[2018-11-12] MEDS ORDERED: LABETALOL 20 MG/4 ML DISP.SYRIN IV PRN (15:15)
[2018-11-12] MEDS ORDERED: DEXTROSE 50%-WATER 50 ML DISP.SYRIN IV PRN (15:15)
[2018-11-12] MEDS ORDERED: SODIUM CHLORIDE 0.9% 10 ML VIAL IVP SCH (15:15)
[2018-11-12] MEDS ORDERED: ENOXAPARIN SODIUM 40 MG/0.4 ML SYRINGE SQ SCH (15:15)
[2018-11-12] MEDS ORDERED: MORPHINE SULFATE 2 MG/ML 1ML SYG IVP PRN (15:15)
[2018-11-12] MEDS ORDERED: ACETAMINOPHEN 325 MG TAB PO PRN ×2 (15:15)
[2018-11-12] MEDS ORDERED: GLUCAGON 1MG KIT 1 MG ML IM PRN (15:15)
[2018-11-12] MEDS ORDERED: MORPHINE SULFATE 4 MG/1ML SYG ONE (15:51)
[2018-11-12 20:13] VITALS: BP 110/67
[2018-11-12] MEDS: METHYLPREDNISOLONE SOD SUCC 40MG/ML 1ML IVP SCH (20:32)
[2018-11-12] MEDS: INSULIN R PO SSI SQ SCH (21:00)
[2018-11-12] MEDS ORDERED: FENO54TA6 PO (22:15)
[2018-11-12] MEDS ORDERED: CLON1TAB12 PO (22:15)
[2018-11-12] MEDS ORDERED: VITAMIN B12 IM (22:20)
[2018-11-12] MEDS ORDERED: TEST200V21 IM (22:20)
[2018-11-12] MEDS: HYDROCODONE/ACETAMINOPHEN 5/325 MG TAB PO PRN (23:01)
[2018-11-12 23:30] VITALS: BP 125/65
[2018-11-13] MEDS: METHYLPREDNISOLONE SOD SUCC 40MG/ML 1ML IVP SCH ×2 (02:00→06:26)
[2018-11-13 03:40] VITALS: BP 104/52
[2018-11-13] MEDS: HYDROCODONE/ACETAMINOPHEN 5/325 MG TAB PO PRN ×2 (03:49→08:49)
[2018-11-13 05:30] LABS: MEAN CORPUSCULAR HEMOGLOBIN 25.7 pg (27.0-33.0); MEAN CORPUSCULAR HGB CONC 31.6 g/dL (32.0-36.0); MEAN CORPUSCULAR VOLUME 81.4 fL (79-99); NUCLEATED RED BLOOD CELLS 0.1 % (0.0-0.19); PLATELET COUNT (AUTO) 332 K/uL (130-400); RED BLOOD CELL COUNT(AUTO) 4.06 MIL/uL (4.00-5.50); RED CELL DISTRIBUTION WIDTH 18.4 % (11.0-15.5); WHITE BLOOD COUNT (AUTO) 7.4 K/uL (4.8-10.8)
[2018-11-13 05:39] LABS: ALBUMIN 3.3 g/dL (3.5-5.0); BILIRUBIN,TOTAL 0.3 mg/dL (0.2-1.0); POTASSIUM 5.2 mmol/L (3.5-5.1); TOTAL PROTEIN, SERUM 6.9 g/dL (6.0-8.3)
[2018-11-13] MEDS: INSULIN R PO SSI SQ SCH (06:27)
[2018-11-13 08:00] VITALS: BP 113/64
[2018-11-13 11:42] VITALS: BP 116/58
[2018-11-13] MEDS ORDERED: IPRATROPIUM/ALBUTEROL SULFATE 3 ML SOLUTION IH SCH (12:00)
--- NOTE | 2018-11-13 12:21 | NUR ---
Pt stated already had flu and pna shot for this season. Addendum: 11/13/18 at 1224 by BARRIE GORE RN RN Amended: Links added.
--- NOTE | 2018-11-13 12:45 | NUR ---
Discharge teaching completed int he room with pt and spouse. Emphasis on dx, what home meds to continue and which one to stop, as well as s/s to monitor for and when to seek emergency care vs call 911. Follow up appts set with Dr. Demarcus Mcnamara and Klever. Written rx for prednisone given to pt, discussed purpose, route, frequency, and duration of treatment, as well as side effects and adverse effects. PIV removed, tip intact. Dressed with sterile 2x2 and band aid after hemostasis achieved. [facility] staff for transport home via private car. Pt in stable condition at bernice of discharge. Pt accompanied by spouse.
[2018-11-13] MEDS ORDERED: LEVOFLOXACIN 750 MG/D5W 150 ML 150 ML IV SCH (13:00)
[2018-11-13] MEDS ORDERED: BUDESONIDE 0.5 MG/2 ML INH IH SCH (18:00)
[2018-11-13] MEDS ORDERED: ROPINIROLE HCL 1 MG TABLET PO SCH (21:00)
[2018-11-13] MEDS ORDERED: MAGNESIUM OXIDE 400 MG TABLET PO SCH (21:00)
[2018-11-13] MEDS ORDERED: TRAZODONE HCL 100 MG TABLET PO SCH (21:00)
[2018-11-13] MEDS ORDERED: CLONAZEPAM 1 MG TABLET PO SCH (21:00)
[2018-11-13] MEDS ORDERED: CARBIDOPA-LEVODOPA 25-100 TAB PO SCH (21:00)
[2018-11-13] MEDS ORDERED: MONTELUKAST SODIUM 10 MG TAB PO SCH (21:00)
[2018-11-13] MEDS ORDERED: [UNRECOGNIZED DRUG - OTHER] IH SCH (21:00)
[2018-11-14] MEDS ORDERED: ***HM***(Fenofibrate 54 MG) PO SCH (08:00)
[2018-11-14] MEDS ORDERED: FLUTICASONE PROPIONATE 50MCG/SPRAY 16 GM BOTTLE NS SCH (09:00)
[2018-11-14] MEDS ORDERED: SERTRALINE HCL 50 MG TABLET PO SCH (09:00)
== END 2018-11-13 12:41 | disposition home or self-care (01) ==
LOC: EDH 12:00 → EDHIP 14:45 → 4BH 19:27
PROVIDERS: ADMIT Internal Medicine Critical Care Medicine; ATTEND Internal Medicine Critical Care Medicine
DX: D86.9 Sarcoidosis, unspecified (principal); E03.9 Hypothyroidism, unspecified; E24.2 Drug-induced Cushing's syndrome; R09.1 Pleurisy; G20 Parkinson's disease; F41.8 Other specified anxiety disorders; T38.0X5A Adverse effect of glucocorticoids and synthetic analogues, initial encounter; Y92.89 Other specified places as the place of occurrence of the external cause; Z79.52 Long term (current) use of systemic steroids
CPT/HCPCS: 36415 ×2; 71046; 80053 ×2; 82550; 82948 ×2; 83605 ×2; 83880; 84484; 85025; 85027; 85610; 85730; 87804 ×2; 93005; 94640 ×2; 96372; 96374; 96375; 96376; 99291; G0378 ×22; J1650; J1815; J1956; J2270; J2920 ×3; J2930; J7030

== ENCOUNTER → 2018-11-22 | Outpatient (CLI) | payer MEDICARE ==
[~2018-11-22] MED LIST changes: +CLON1TAB12 PO; -DIAZ10TA PO; -GABA600T10 PO; -HYDR200T4 PO; -PRED20TA3 PO; +TEST200V21 IM; +VITAMIN B12 IM; -ZALE5CAP6 PO
== END | disposition home or self-care (01) ==
LOC: RAH 13:20
PROVIDERS: ATTEND Family Medicine
DX: J43.9 Emphysema, unspecified (principal); J47.9 Bronchiectasis, uncomplicated
CPT/HCPCS: 71250

== ENCOUNTER 2018-12-12 17:01 | Inpatient (IN) | payer MEDICARE ==
[~2018-12-12] VITALS: Ht 167.6 cm; Wt 76.9 kg
[2018-12-12] MEDS ORDERED: METHYLPREDNISOLONE SOD SUCC 125MG/2ML VIAL ONE (18:03)
[2018-12-12] MEDS ORDERED: SODIUM CHLORIDE 0.9% 500ML 500 ML IV ONE (18:04)
[2018-12-12] MEDS ORDERED: CEFTRIAXONE SODIUM 1 GM ONE (18:04)
[2018-12-12] MEDS ORDERED: AZITHROMYCIN 500MG+NS 250ML 250 ML IV ONE (18:04)
[2018-12-12 18:07] LABS: BASOPHILS % (AUTO) 0.5 % (0.0-5.0); HEMATOCRIT 42.1 % (36-48); LYMPHOCYTES % (AUTO) 3.1 % (21.0-51.0); MEAN CORPUSCULAR HGB CONC 30.6 g/dL (32.0-36.0); MEAN CORPUSCULAR VOLUME 81.7 fL (79-99); NEUTROPHILS % (AUTO) 94.4 % (40.0-77.0); PLATELET COUNT (AUTO) 345 K/uL (130-400); RED BLOOD CELL COUNT(AUTO) 5.15 MIL/uL (4.00-5.50); RED CELL DISTRIBUTION WIDTH 20.8 % (11.0-15.5); WHITE BLOOD COUNT (AUTO) 11.7 K/uL (4.8-10.8)
[2018-12-12] MEDS ORDERED: IPRATROPIUM/ALBUTEROL SULFATE 3 ML SOLUTION IH ONE ×2 (18:08→20:23)
[2018-12-12] MEDS ORDERED: ONDANSETRON HCL 4 MG/2 ML VIAL ONE (18:16)
[2018-12-12] MEDS ORDERED: HYDROMORPHONE 1 MG/1 ML AMP ONE (18:17)
[2018-12-12 18:24] LABS: CREATININE 1.3 mg/dL (0.5-1.5); POTASSIUM 4.2 mmol/L (3.5-5.1)
[2018-12-12 18:28] LABS: ALBUMIN 3.4 g/dL (3.5-5.0); BILIRUBIN,TOTAL 0.3 mg/dL (0.2-1.0); TOTAL PROTEIN, SERUM 7.7 g/dL (6.0-8.3)
[2018-12-12] MEDS ORDERED: SODIUM CHLORIDE 0.9% 1000ML 2,000 ML IV ONE (19:19)
[2018-12-12] MEDS ORDERED: GLUCAGON 1MG KIT 1 MG ML IM PRN (20:15)
[2018-12-12] MEDS ORDERED: DEXTROSE 50%-WATER 50 ML DISP.SYRIN IV PRN (20:15)
[2018-12-12] MEDS ORDERED: IPRATROPIUM/ALBUTEROL SULFATE 3 ML SOLUTION IH PRN (20:15)
[2018-12-12] MEDS ORDERED: ZOLPIDEM TARTRATE 5 MG TAB PO PRN (20:15)
[2018-12-12] MEDS ORDERED: SODIUM CHLORIDE 0.9% 10 ML VIAL IVP PRN (20:15)
[2018-12-12] MEDS ORDERED: HYDROCODONE/ACETAMINOPHEN 10/325 MG TAB ONE (20:54)
[2018-12-12] MEDS ORDERED: LEVOFLOXACIN 750 MG/D5W 150 ML 150 ML IV SCH (21:00)
[2018-12-12] MEDS: INSULIN R PO SS1 SQ SCH (21:00)
[2018-12-12] MEDS: METHYLPREDNISOLONE SOD SUCC 125MG/2ML VIAL IVP SCH (21:00)
[2018-12-12 21:45] VITALS: BP 125/76
[2018-12-12] MEDS ORDERED: ACETAMINOPHEN-CODEINE 300/30MG TAB PO PRN (21:45)
[2018-12-12] MEDS ORDERED: PRED20TA3 PO (22:01)
[2018-12-12] MEDS ORDERED: PRAS25CA9 PO (22:01)
[2018-12-12] MEDS ORDERED: FERR324T PO (22:01)
--- NOTE | 2018-12-12 23:25 | NUR ---
ANGER PATIENT STATES HE IS VERY ANGRY AT THIS TIME ABOUT HIS SITUATION AND FEELS HE WILL TAKE IT OUT VERBALLY AT SOMEONE. HE WOULD LIKE SOMETHING TO CALM HIM DOWN. DR GOMEZ PAGED AWAITING HIS CALL. AT THE MOMENT PATIENT INSTRUCTED TO TAKE HIS CLONAZEPAM PO PRESCRIBE BY DR GOMEZ UNTIL I CAN GET A HOLD OF FOR FURTHER ORDERS.
[2018-12-12 23:52] VITALS: BP 107/60
[2018-12-13] MEDS: HYDROCODONE/ACETAMINOPHEN 5/325 MG TAB PO PRN ×3 (01:02→10:32)
[2018-12-13 04:00] VITALS: BP 96/52
[2018-12-13 04:21] LABS: HEMATOCRIT 34.1 % (36-48); MEAN CORPUSCULAR HEMOGLOBIN 25.5 pg (27.0-33.0); MEAN CORPUSCULAR HGB CONC 31.7 g/dL (32.0-36.0); MEAN CORPUSCULAR VOLUME 80.4 fL (79-99); PLATELET COUNT (AUTO) 260 K/uL (130-400); RED BLOOD CELL COUNT(AUTO) 4.24 MIL/uL (4.00-5.50); RED CELL DISTRIBUTION WIDTH 20.1 % (11.0-15.5); WHITE BLOOD COUNT (AUTO) 8.9 K/uL (4.8-10.8)
[2018-12-13] MEDS: METHYLPREDNISOLONE SOD SUCC 125MG/2ML VIAL IVP SCH (04:52)
[2018-12-13 05:14] LABS: ALBUMIN 2.6 g/dL (3.5-5.0); BILIRUBIN,TOTAL 0.2 mg/dL (0.2-1.0); CREATININE 1.1 mg/dL (0.5-1.5); POTASSIUM 5.1 mmol/L (3.5-5.1)
[2018-12-13] MEDS: INSULIN R PO SS1 SQ SCH (05:49)
[2018-12-13] MEDS: IPRATROPIUM/ALBUTEROL SULFATE 3 ML SOLUTION IH SCH ×3 (05:57→13:36)
[2018-12-13] MEDS ORDERED: GADODIAMIDE 5 MMOL/10 ML VIAL 5 MMOL/10 ML ML IV ONE (07:39)
[2018-12-13] MEDS ORDERED: PREDNISONE 20 MG TABLET PO SCH (08:00)
--- NOTE | 2018-12-13 08:00 | NUR ---
PER PROVIDER PT IS A HOME HOSPICE PATIENT SPOKE WITH VALE SINGH ON THE PHONE, REGARDING CODE STATUS STATES , PT TO BE DNR- DNR FORM SIGNED WITH SUHAS ENAMORADO RN
[2018-12-13 08:18] VITALS: BP 124/72
--- NOTE | 2018-12-13 08:18 | NUR ---
dr. melendez paged as pt states he is in a lot of and has nothing prn for pain to be given and norco, as per pt, is not even touching his pain
--- NOTE | 2018-12-13 08:30 | NUR ---
DR. GOMEZ CALLED BACK, MADE AWARE THAT PT IS STILL IN A LOT OF PAIN, AND THE PAIN MEDICATIN IS NOT EVEN TOUCHING HIS PAIN, PER DR. GOMEZ "PATIENT JUST WANTS DIAULID, AND ONCE HE GETS IT, HE IS NOT GOING TO WANT TO LEAVE THE HOSPITAL" , "I WILL NOT ORDER ANYTHING ELSE FOR PAIN", "TELL THE PATIENT HE CANNOT HAVE ANYTHING ELSE FOR PAIN, BECAUSE OF HIS DX, UNTIL CLEARED BY CARDIOLOGY" . DR. GOMEZ ADDED "I ALREADY ROUNDED ON THIS PATIENT, DO NOT BE CALLING ME ANYMORE ABOUT THIS PATIENT" . CHARGE NURSE AWARE
[2018-12-13] MEDS ORDERED: SERTRALINE HCL 50 MG TABLET PO SCH (09:00)
[2018-12-13] MEDS ORDERED: **HM** DHEA 25MG PO SCH (09:00)
[2018-12-13] MEDS ORDERED: CARBIDOPA-LEVODOPA 25-100 TAB PO SCH (09:00)
[2018-12-13] MEDS ORDERED: CLONAZEPAM 1 MG TABLET PO SCH (09:00)
[2018-12-13] MEDS ORDERED: MAGNESIUM OXIDE 400 MG TABLET PO SCH (09:00)
[2018-12-13] MEDS ORDERED: FERROUS GLUCONATE 325 MG TABLET PO SCH (09:00)
[2018-12-13] MEDS ORDERED: TESTOSTERONE IM SCH (09:00)
[2018-12-13] MEDS ORDERED: FLUTICASONE PROPIONATE 50MCG/SPRAY 16 GM BOTTLE NS SCH (09:00)
[2018-12-13] MEDS ORDERED: **HM** DEXILANT 60MG PO SCH (09:00)
--- NOTE | 2018-12-13 09:00 | NUR ---
PT UPSET, DR. SPANGLER WONT PRESCRIBE ANYTHING ELSE FOR PAIN, ALBERTINA DIRECTOR AND CHARGE NURSE AWARE
--- NOTE | 2018-12-13 11:00 | NUR ---
DR. GUI SHEPHERD PT IS DNR Addendum: 12/14/18 at 0748 by WANDA CHAVEZ RN DISREGSHIRA CRUZ PT
[2018-12-13 12:30] VITALS: BP 108/59
--- NOTE | 2018-12-13 13:30 | NUR ---
PER ANESTHESIA , THEIR MACHINES FOR MAC, ARE NOT MRI COMPATIBLE THUS UNABLE TO PERFORM MAC. CHARGE NURSE AWARE PT AWARE, PT STATES WANTS TO LEAVE AMA, BUT REFUSES TO SIGN AMA PAPER CHARGE NURSE AND ALBERTINA, DIRECTOR AWARE PT'S IV REMOVED, CATHETER INTACT PT WALKED WITH SIGNIFICANT OTHER OUTSIDE CHARGE NURSE AWARE
[2018-12-13] MEDS ORDERED: DOXYCYCLINE 100MG+NS 250ML 250 ML IV SCH (14:00)
--- NOTE | 2018-12-13 15:13 | NUR ---
DCP CM met with pt and spouse discussed dc plans. Pt is semi-independent w/ADL's, lives at home with spouse. Pt has oxygen equipments, and nebulizer at home, provider 14.5hrs/wk. Denies any other equipments/services. Pt feels safe to go back home, spouse able to assist with transportation and needs as necessary. DC plan to home once stable. CM to cont to follow up. Addendum: 12/13/18 at 1514 by LAWRENCE CA LVN CM Amended: Links added.
--- NOTE | 2018-12-13 16:00 | NUR ---
PER THAO CSO, PT NEEDS SALES WAREHOUSE DRIVER ORDER ORDERED IN PLACE , SINCE PT IS A HOSPICE PATIENT CARMEN KULKARNI, PENDING CALLED BACK CHARGE NURSE AWARE Addendum: 12/14/18 at 0749 by WANDA CHAVEZ RN DISREGARD, WRONG PT
--- NOTE | 2018-12-13 16:10 | NUR ---
PER MARK OSUNA, PT IS OUT OF HOSPICE STATUS , BC HE WAS BROUGHT TO THE HOSPITAL, AND SERVICES WERE REVOKED. DR. MESSER AWARE PT IS OUT OF HOSPICE STATUS, SINCE HE WAS BROUGHT TO THE HOSPITAL, OK TO D/C HOME WITH HOSPICE CONSULT CARMEN HANEY. CARMEN PAGED AGAIN
--- NOTE | 2018-12-13 16:30 | NUR ---
PER THAO FLORES, PT IS ALL CLEARED TO GO BACK TO HOSPICE SHE SPOKE WITH CARMEN HANEY, AND STATES EVERYTHING IS ARRANGED FOR PT TO BE D/C AMBULANCE HAS BEING SET UP WELL. CHARGE NURSE AWARE . Addendum: 12/14/18 at 0750 by WANDA CHAVEZ RN DISREGARD, WRONG PT
[2018-12-13] MEDS ORDERED: BUDESONIDE 0.5 MG/2 ML INH IH SCH (18:00)
[2018-12-13] MEDS ORDERED: MONTELUKAST SODIUM 10 MG TAB PO SCH (21:00)
[2018-12-13] MEDS ORDERED: TRAZODONE HCL 100 MG TABLET PO SCH (21:00)
[2018-12-13] MEDS ORDERED: OSELTAMIVIR PHOSPHATE 75 MG CAP PO SCH (21:00)
[2018-12-13] MEDS ORDERED: ROPINIROLE HCL 1 MG TABLET PO SCH (21:00)
[2018-12-19] MEDS ORDERED: ERGOCALCIFEROL (VITAMIN D2) 50,000 UNIT CAPSULE PO SCH (09:00)
== END 2018-12-13 13:15 | disposition left against medical advice (07) | DRG 189 ==
LOC: EDH 17:01 → EDHIP 19:45 → 4AH 21:06
PROVIDERS: ADMIT Internal Medicine; ATTEND Internal Medicine
DX: J96.21 Acute and chronic respiratory failure with hypoxia (principal); J44.1 Chronic obstructive pulmonary disease with (acute) exacerbation; J84.10 Pulmonary fibrosis, unspecified; D86.9 Sarcoidosis, unspecified; F41.8 Other specified anxiety disorders; F32.9 Major depressive disorder, single episode, unspecified; F41.9 Anxiety disorder, unspecified; Z98.84 Bariatric surgery status; Z88.1 Allergy status to other antibiotic agents; Z88.8 Allergy status to other drugs, medicaments and biological substances
CPT/HCPCS: 36415; 71045; 80053; 82948; 83605; 85025; 85027; 87040; 93005; 94640; 94664; A9579; G0378; J0456; J0696; J1170; J1815; J1956; J2405; J2930; J3490; J7030; J7040

== ENCOUNTER 2019-03-30 02:37 | Emergency (ER) | payer MEDICARE ==
[~2019-03-30 02:37] MED LIST changes: -CYAN1TAB14 PO; -FENO54TA6 PO; +FERR324T PO; +PRAS25CA9 PO; +PRED20TA3 PO
[2019-03-30 03:17] LABS: BASOPHILS % (AUTO) 0.5 % (0.0-5.0); EOSINOPHILS % (AUTO) 0.8 % (0.0-8.0); HEMATOCRIT 40.4 % (36-48); LYMPHOCYTES % (AUTO) 10.1 % (21.0-51.0); MEAN CORPUSCULAR HEMOGLOBIN 29.4 pg (27.0-33.0); MEAN CORPUSCULAR HGB CONC 32.9 g/dL (32.0-36.0); MEAN CORPUSCULAR VOLUME 89.3 fL (79-99); MONOCYTES % (AUTO) 7.4 % (3.0-13.0); NEUTROPHILS % (AUTO) 81.2 % (40.0-77.0); PLATELET COUNT (AUTO) 231 K/uL (130-400); RED BLOOD CELL COUNT(AUTO) 4.52 MIL/uL (4.00-5.50); RED CELL DISTRIBUTION WIDTH 19.6 % (11.0-15.5)
[2019-03-30 03:22] LABS: CREATININE 0.9 mg/dL (0.5-1.5); POTASSIUM 3.6 mmol/L (3.5-5.1)
[2019-03-30 03:27] LABS: ALBUMIN 3.2 g/dL (3.5-5.0); BILIRUBIN,TOTAL 0.2 mg/dL (0.2-1.0); TOTAL PROTEIN, SERUM 5.7 g/dL (6.0-8.3)
[2019-03-30 03:41] LABS: INR 0.91 (0.85-1.15); PARTIAL THROMBOPLASTIN TIME 22.1 SEC (26.3-35.5); PROTHROMBIN TIME 9.6 SEC (9.6-11.6)
[2019-03-30] MEDS ORDERED: SODIUM CHLORIDE 0.9% 1000ML 0 ML IV ONE (03:53)
[2019-03-30] MEDS ORDERED: LORAZEPAM 2 MG/ML 1 ML VIAL ONE (03:54)
[2019-03-30] MEDS ORDERED: LIDOCAINE PF 2% 5ML ABBOJECT ONE (04:08)
[2019-03-30] MEDS ORDERED: SODIUM CHLORIDE 0.9% 250 ML IV ONE (04:12)
== END 2019-03-30 05:41 | disposition home or self-care (01) ==
LOC: EDH 02:37
DX: R07.89 Other chest pain (principal); R51 Headache; R55 Syncope and collapse; R68.84 Jaw pain; Z88.1 Allergy status to other antibiotic agents; Z88.6 Allergy status to analgesic agent; Z88.8 Allergy status to other drugs, medicaments and biological substances; Z72.0 Tobacco use
CPT/HCPCS: 36415; 71045; 80053; 82550; 83605; 83690; 84484 ×2; 85025; 85610; 85730; 93005; 96374; 96375; 99285; J2001; J2060; J7030

== ENCOUNTER 2019-08-25 18:11 | Emergency (ER) | payer MEDICARE ==
[2019-08-25 19:12] LABS: BASOPHILS % (AUTO) 0.4 % (0.0-5.0); EOSINOPHILS % (AUTO) 0.1 % (0.0-8.0); HEMATOCRIT 41.8 % (36-48); LYMPHOCYTES % (AUTO) 3.7 % (21.0-51.0); MEAN CORPUSCULAR HEMOGLOBIN 30.6 pg (27.0-33.0); MEAN CORPUSCULAR VOLUME 92.8 fL (79-99); NEUTROPHILS % (AUTO) 92.8 % (40.0-77.0); PLATELET COUNT (AUTO) 261 K/uL (130-400); RED BLOOD CELL COUNT(AUTO) 4.51 MIL/uL (4.00-5.50); WHITE BLOOD COUNT (AUTO) 7.9 K/uL (4.8-10.8)
[2019-08-25 19:32] LABS: INR 0.89 (0.85-1.15); PARTIAL THROMBOPLASTIN TIME 22.4 SEC (26.3-35.5); PROTHROMBIN TIME 9.4 SEC (9.6-11.6)
[2019-08-25 19:33] LABS: CREATININE 0.9 mg/dL (0.5-1.5); POTASSIUM 4.7 mmol/L (3.5-5.1)
[2019-08-25 19:41] LABS: ALBUMIN 2.9 g/dL (3.5-5.0); BILIRUBIN,TOTAL 0.1 mg/dL (0.2-1.0); TOTAL PROTEIN, SERUM 6.4 g/dL (6.0-8.3)
[2019-08-25 21:34] LABS: APPEARANCE,URINE Clear (CLEAR); BILIRUBIN,URINE Negative (NEGATIVE); COLOR,URINE Yellow (YELLOW); GLUCOSE, URINE (UA) Negative (NEGATIVE); KETONES,URINE Negative (NEGATIVE); LEUKOCYTE ESTERASE ,URINE Negative (NEGATIVE); NITRATE,URINE Negative (NEGATIVE); OCCULT BLOOD,URINE Negative (NEGATIVE); PROTEIN,URINE Negative (NEGATIVE); UROBILINOGEN,URINE 0.2 mg/dL (0.2-1.0)
[2019-08-25] MEDS ORDERED: SODIUM CHLORIDE 0.9% 1000ML 1,000 ML IV ONE (21:45)
[2019-08-25 22:11] LABS: AMPHET/METH SCREEN,URINE NEGATIVE (NEGATIVE); BARBITURATE SCREEN, URINE NEGATIVE (NEGATIVE); BENZODIAZEPINES SCREEN,URINE NEGATIVE (NEGATIVE); CANNABINOID SCREEN,URINE NEGATIVE (NEGATIVE); COCAINE SCREEN,URINE NEGATIVE (NEGATIVE); OPIATE SCREEN,URINE NEGATIVE (NEGATIVE); PHENCYCLIDINE SCREEN,URINE NEGATIVE (NEGATIVE)
== END 2019-08-25 23:43 | disposition home or self-care (01) ==
LOC: EDH 18:11
DX: A08.8 Other specified intestinal infections (principal); D86.9 Sarcoidosis, unspecified; Z87.442 Personal history of urinary calculi; Z98.890 Other specified postprocedural states; Z88.6 Allergy status to analgesic agent; Z88.1 Allergy status to other antibiotic agents; Z88.8 Allergy status to other drugs, medicaments and biological substances
CPT/HCPCS: 36415; 70450; 80053; 80305; 81003; 82140; 83690; 84484; 85025; 85610; 85730; 93005; 96360; 96361; 99285; J7030

== ENCOUNTER 2019-08-28 16:03 | Emergency (ER) | payer MEDICARE ==
[2019-08-28 16:51] LABS: BASOPHILS % (AUTO) 0.7 % (0.0-5.0); EOSINOPHILS % (AUTO) 0.1 % (0.0-8.0); HEMATOCRIT 45.2 % (36-48); LYMPHOCYTES % (AUTO) 6.4 % (21.0-51.0); MEAN CORPUSCULAR HEMOGLOBIN 29.8 pg (27.0-33.0); MEAN CORPUSCULAR HGB CONC 32.7 g/dL (32.0-36.0); MEAN CORPUSCULAR VOLUME 91.2 fL (79-99); MONOCYTES % (AUTO) 2.1 % (3.0-13.0); NEUTROPHILS % (AUTO) 90.7 % (40.0-77.0); PLATELET COUNT (AUTO) 305 K/uL (130-400); RED BLOOD CELL COUNT(AUTO) 4.96 MIL/uL (4.00-5.50); WHITE BLOOD COUNT (AUTO) 8.9 K/uL (4.8-10.8)
[2019-08-28 17:03] LABS: CREATININE 1.1 mg/dL (0.5-1.5); POTASSIUM 3.8 mmol/L (3.5-5.1)
[2019-08-28 17:05] LABS: INR 0.88 (0.85-1.15); PARTIAL THROMBOPLASTIN TIME 23.4 SEC (26.3-35.5); PROTHROMBIN TIME 9.3 SEC (9.6-11.6)
[2019-08-28 17:12] LABS: ALBUMIN 3.2 g/dL (3.5-5.0); BILIRUBIN,TOTAL 0.2 mg/dL (0.2-1.0); TOTAL PROTEIN, SERUM 6.7 g/dL (6.0-8.3)
[2019-08-28] MEDS ORDERED: IPRATROPIUM/ALBUTEROL SULFATE 3 ML SOLUTION IH ONE (17:13)
[2019-08-28] MEDS ORDERED: FAMOTIDINE 20MG TAB 20 MG TAB ONE (18:54)
[2019-08-28] MEDS ORDERED: KETOROLAC TROMETHAMINE 15MG/ML ONE (18:55)
[2019-08-28] MEDS ORDERED: ASPIRIN 325 MG TABLET ONE (18:55)
== END 2019-08-28 19:23 | disposition home or self-care (01) ==
LOC: EDH 16:03
DX: J20.9 Acute bronchitis, unspecified (principal); Z87.442 Personal history of urinary calculi; Z88.1 Allergy status to other antibiotic agents; Z88.6 Allergy status to analgesic agent; Z98.890 Other specified postprocedural states; Z72.0 Tobacco use
CPT/HCPCS: 36415; 71045; 80053; 82550; 82948; 84484; 85025; 85610; 85730; 86850; 86900; 86901; 93005; 94640; 99285; J1885

== ENCOUNTER → 2019-09-06 | Outpatient (CLI) | payer MEDICARE | END | disposition home or self-care (01) | LOC: RAH 14:07 | PROVIDERS: ATTEND Family Medicine | DX: J84.10 Pulmonary fibrosis, unspecified (principal); R04.2 Hemoptysis; M51.35 Other intervertebral disc degeneration, thoracolumbar region; Z90.49 Acquired absence of other specified parts of digestive tract; M41.86 Other forms of scoliosis, lumbar region; Z88.8 Allergy status to other drugs, medicaments and biological substances; Z88.5 Allergy status to narcotic agent; Z88.1 Allergy status to other antibiotic agents; Z98.84 Bariatric surgery status; F17.200 Nicotine dependence, unspecified, uncomplicated | CPT/HCPCS: 71045; 74018 ==

== ENCOUNTER 2019-09-29 13:22 | Emergency (ER) | payer MEDICARE ==
[2019-09-29] MEDS ORDERED: IPRATROPIUM/ALBUTEROL SULFATE 3 ML SOLUTION IH ONE (14:50)
[2019-09-29 14:53] LABS: CREATININE 0.9 mg/dL (0.5-1.5)
[2019-09-29 14:58] LABS: BASOPHILS % (AUTO) 0.4 % (0.0-5.0); EOSINOPHILS % (AUTO) 0.1 % (0.0-8.0); HEMATOCRIT 36.4 % (36-48); LYMPHOCYTES % (AUTO) 2.2 % (21.0-51.0); MEAN CORPUSCULAR HEMOGLOBIN 29.7 pg (27.0-33.0); MEAN CORPUSCULAR HGB CONC 32.6 g/dL (32.0-36.0); MONOCYTES % (AUTO) 2.6 % (3.0-13.0); NEUTROPHILS % (AUTO) 94.7 % (40.0-77.0); PLATELET COUNT (AUTO) 308 K/uL (130-400); RED CELL DISTRIBUTION WIDTH 15.5 % (11.0-15.5); WHITE BLOOD COUNT (AUTO) 12.6 K/uL (4.8-10.8)
[2019-09-29 15:02] LABS: ALBUMIN 2.7 g/dL (3.5-5.0); BILIRUBIN,TOTAL 0.2 mg/dL (0.2-1.0)
[2019-09-29 15:04] LABS: INR 0.89 (0.85-1.15); PARTIAL THROMBOPLASTIN TIME 21.5 SEC (26.3-35.5); PROTHROMBIN TIME 9.4 SEC (9.6-11.6)
[2019-09-29 16:26] LABS: B-TYPE NATRIURETIC PEPTIDE 164 pg/mL (0-100)
[2019-09-29] MEDS ORDERED: LEVOFLOXACIN 500 MG/D5W 100 ML 100 ML ONE (16:55)
[2019-09-29] MEDS ORDERED: METHYLPREDNISOLONE SOD SUCC 125MG/2ML VIAL ONE (16:55)
== END 2019-09-29 17:19 | disposition home or self-care (01) ==
LOC: EDH 13:22
DX: J44.0 Chronic obstructive pulmonary disease with (acute) lower respiratory infection (principal); R20.2 Paresthesia of skin; Z88.1 Allergy status to other antibiotic agents; Z88.6 Allergy status to analgesic agent; Z88.8 Allergy status to other drugs, medicaments and biological substances; Z72.0 Tobacco use
CPT/HCPCS: 36415; 71045; 80053; 82550; 83690; 83880; 84484; 85025; 85610; 85730; 93005; 94640; 96374; 96375; 99285; J1956; J2930

== ENCOUNTER 2019-12-22 10:18 | Observation (INO) | payer MEDICARE ==
[~2019-12-22] VITALS: Ht 167.6 cm; Wt 85.0 kg
[~2019-12-22 10:18] MED LIST changes: -MONT10TA24 PO; +MONT10TA26 PO; -ROPI0.5T5 PO; +ROPI0.5T7 PO
[2019-12-22 12:36] LABS: CREATININE 0.9 mg/dL (0.5-1.5); POTASSIUM 3.7 mmol/L (3.5-5.1)
[2019-12-22 12:41] LABS: ALBUMIN 2.6 g/dL (3.5-5.0); BILIRUBIN,TOTAL 0.2 mg/dL (0.2-1.0); TOTAL PROTEIN, SERUM 7.1 g/dL (6.0-8.3)
[2019-12-22] MEDS ORDERED: MORPHINE SULFATE 2 MG/ML 1ML SYG ONE ×2 (13:41→17:16)
[2019-12-22] MEDS ORDERED: IPRATROPIUM/ALBUTEROL SULFATE 3 ML SOLUTION IH ONE (13:54)
[2019-12-22] MEDS ORDERED: AZITHROMYCIN 500MG+NS 250ML 250 ML IV ONE (13:55)
[2019-12-22] MEDS ORDERED: METHYLPREDNISOLONE SOD SUCC 125MG/2ML VIAL ONE (13:55)
[2019-12-22] MEDS ORDERED: LEVOFLOXACIN 500 MG/D5W 100 ML 100 ML ONE (14:03)
[2019-12-22] MEDS ORDERED: IOHEXOL 350 MG/ML 100ML INFUS..BTL IV ONE (15:04)
[2019-12-22] MEDS ORDERED: MAGNESIUM 2GM PREMIX 50ML 50 ML IV PRN (17:15)
[2019-12-22] MEDS ORDERED: HEPARIN 25000 UNITS/250 ML D5W 250 ML IV SCH (17:15)
[2019-12-22] MEDS ORDERED: HYDRALAZINE HCL 20 MG/ML VIAL IV PRN (17:15)
[2019-12-22] MEDS ORDERED: POTASSIUM CHLORIDE 20MEQ/100ML 100 ML IV PRN (17:15)
[2019-12-22] MEDS ORDERED: POTASSIUM CHLORIDE 10% ELIXIR 20 MEQ/15 ML UDCUP PO PRN (17:15)
[2019-12-22] MEDS ORDERED: GLUCAGON 1MG KIT 1 MG ML IM PRN (17:15)
[2019-12-22] MEDS ORDERED: LACTULOSE 20 GM/30 ML UDCUP PO PRN (17:15)
[2019-12-22] MEDS ORDERED: DEXTROSE 50%-WATER 50 ML DISP.SYRIN IV PRN (17:15)
[2019-12-22] MEDS ORDERED: POTASSIUM CHLORIDE 20 MEQ ERTAB PO PRN (17:15)
[2019-12-22 18:32] LABS: BASOPHILS % (AUTO) 0.2 % (0.0-5.0); HEMATOCRIT 38.6 % (36-48); LYMPHOCYTES % (AUTO) 1.6 % (21.0-51.0); MEAN CORPUSCULAR HEMOGLOBIN 26.7 pg (27.0-33.0); MEAN CORPUSCULAR HGB CONC 30.3 g/dL (32.0-36.0); MEAN CORPUSCULAR VOLUME 88.1 fL (79-99); NEUTROPHILS % (AUTO) 95.9 % (40.0-77.0); PLATELET COUNT (AUTO) 399 K/uL (130-400); RED BLOOD CELL COUNT(AUTO) 4.38 MIL/uL (4.00-5.50); RED CELL DISTRIBUTION WIDTH 17.1 % (11.0-15.5); WHITE BLOOD COUNT (AUTO) 17.9 K/uL (4.8-10.8)
[2019-12-22 18:49] LABS: INR 0.89 (0.85-1.15); PARTIAL THROMBOPLASTIN TIME 22.4 SEC (26.3-35.5); PROTHROMBIN TIME 9.4 SEC (9.6-11.6)
[2019-12-22] MEDS: IPRATROPIUM/ALBUTEROL SULFATE 3 ML SOLUTION IH PRN (19:24)
[2019-12-22] MEDS ORDERED: HEPARIN 25000 UNITS/250 ML D5W 250 ML IV ONE (19:33)
[2019-12-22] MEDS ORDERED: HEPARIN SODIUM 5000UNIT/ML 1ML VIAL ONE (19:45)
[2019-12-22] MEDS ORDERED: MONTELUKAST SODIUM 10 MG TAB ONE (20:38)
[2019-12-22] MEDS ORDERED: MAGNESIUM OXIDE 400 MG TABLET PO ONE (20:38)
[2019-12-22] MEDS ORDERED: TRAZODONE HCL 50 MG TAB ONE (20:39)
[2019-12-22] MEDS ORDERED: CLONAZEPAM 0.5 MG TABLET ONE (20:40)
[2019-12-22] MEDS: MONTELUKAST SODIUM 10 MG TAB PO SCH (21:00)
[2019-12-22] MEDS: ROPINIROLE HCL 1 MG TABLET PO SCH (21:00)
[2019-12-22] MEDS: TRAZODONE HCL 100 MG TABLET PO SCH ×2 (21:00→22:55)
[2019-12-22] MEDS: CARBIDOPA-LEVODOPA 25-100 TAB PO SCH (21:00)
[2019-12-22] MEDS: CLONAZEPAM 1 MG TABLET PO SCH (21:00)
[2019-12-22] MEDS: INSULIN HUMULIN R 100 UNIT/ML 3ML SQ SCH (21:00)
[2019-12-22] MEDS ORDERED: INSULIN HUMULIN R 100 UNIT/ML 3ML ONE (21:06)
--- NOTE | 2019-12-22 21:15 | NUR ---
ADMIT PT ADMITTED TO ROOM 411, AAOX3. ADMISSION CARE DONE. CONTINUED HEPARIN DRIP FROM ER AT 1500 UNITS/KG/HR INDICATED PER PROTOCOL. ADMISSION DATA BASE COMPLETED. KEPT RESTED AND COMFORTABLE IN BED. CALL LIGHT WITHIN REACH. ORIENTED TO ROOM AND UNIT. IN FOR MORE CARE AND MANAGEMENT. Addendum: 12/22/19 at 2243 by JORGE LUIS MARTINEZ RN RN Amended: Links added.
[2019-12-22 21:25] VITALS: BP 118/59
[2019-12-22] MEDS: MORPHINE SULFATE 2 MG/ML 1ML SYG IVP PRN (21:51)
--- NOTE | 2019-12-22 23:00 | NUR ---
HOME MEDS UPDATED HOME MED LIST IN THE COMPUTER. WILL NEED TO REFER TO MD DURING AM ROUNDS. WILL ENDORSE TO AM NURSE.
[2019-12-22] MEDS ORDERED: CLON2TAB21 PO (23:14)
[2019-12-22] MEDS ORDERED: FENO54TA6 PO (23:14)
[2019-12-22] MEDS ORDERED: POTA10CA44 PO (23:14)
[2019-12-22] MEDS ORDERED: SUVO5TAB PO (23:14)
[2019-12-22] MEDS ORDERED: LIPA1CAP18 PO (23:14)
[2019-12-22] MEDS ORDERED: GUAI600T50 PO (23:14)
[2019-12-22] MEDS ORDERED: RISP2TAB22 PO (23:14)
[2019-12-22] MEDS ORDERED: FURO20TA4 PO (23:14)
[2019-12-22] MEDS ORDERED: TYL4 PO (23:21)
[2019-12-23 00:24] VITALS: BP 155/76
[2019-12-23] MEDS ORDERED: SODIUM CHLORIDE 3% FOR INHALATION 4 ML/AMP VIAL.NEB IH ONE (01:36)
--- NOTE | 2019-12-23 01:43 | NUR ---
RT CHERY, WAS ABLE TO COLLECT SPUTUM FOR CX, SENT TO THE LAB. Addendum: 12/23/19 at 0308 by JORGE LUIS MARTINEZ RN RN ERROR ENTRY
--- NOTE | 2019-12-23 02:30 | NUR ---
PTT PTT RESULTS IN =28. BOLUS OF 6000 UNITS GIVEN PROTOCOL AND INCREASED RATE BY 4 UNITS/KG/HR =300, SO RATE INCREASED TO 18ML/HR PER PROTOCOL. JYOTI, RN WITNESS WITH CHANGE.
[2019-12-23 04:24] VITALS: BP 134/75
[2019-12-23] MEDS: MORPHINE SULFATE 2 MG/ML 1ML SYG IVP PRN ×3 (04:44→16:42)
--- NOTE | 2019-12-23 05:33 | NUR ---
RE-ASSESS PT IS FAIRLY ASLEEP WITH RESPIRATIONS EVEN AND UNLABORED. NO NOTED DISTRESS. KEPT UNDISTURBED FOR NOW. CALL LIGHT WITHIN REACH. FOR MORE CARE.
[2019-12-23] MEDS: INSULIN HUMULIN R 100 UNIT/ML 3ML SQ SCH ×4 (05:57→21:00)
[2019-12-23] MEDS: IPRATROPIUM/ALBUTEROL SULFATE 3 ML SOLUTION IH PRN ×2 (06:24→18:27)
[2019-12-23 08:00] VITALS: BP_SYST 120; BP_SYST 146; BP_DIAS 68; BP_DIAS 76
[2019-12-23] MEDS: CARBIDOPA-LEVODOPA 25-100 TAB PO SCH ×2 (08:21→20:23)
[2019-12-23] MEDS ORDERED: HEPARIN 25000 UNITS/250 ML D5W 250 ML IV SCH (08:30)
[2019-12-23 08:35] LABS: HEMATOCRIT 35.4 % (36-48); MEAN CORPUSCULAR HEMOGLOBIN 26.2 pg (27.0-33.0); MEAN CORPUSCULAR HGB CONC 29.9 g/dL (32.0-36.0); MEAN CORPUSCULAR VOLUME 87.6 fL (79-99); PLATELET COUNT (AUTO) 370 K/uL (130-400); RED BLOOD CELL COUNT(AUTO) 4.04 MIL/uL (4.00-5.50); RED CELL DISTRIBUTION WIDTH 16.6 % (11.0-15.5); WHITE BLOOD COUNT (AUTO) 14.1 K/uL (4.8-10.8)
[2019-12-23] MEDS ORDERED: SERTRALINE HCL 50 MG TABLET PO SCH ×2 (09:00→21:00)
[2019-12-23] MEDS ORDERED: PANTOPRAZOLE 40 MG/VIAL IVP SCH (09:00)
[2019-12-23] MEDS: CLONAZEPAM 1 MG TABLET PO SCH ×2 (09:00→21:15)
[2019-12-23] MEDS: PRASTERONE 25 MG PO SCH (09:00)
[2019-12-23] MEDS: PREDNISONE 20 MG TABLET PO SCH (09:00)
[2019-12-23] MEDS: MAGNESIUM OXIDE 400 MG TABLET PO SCH ×2 (09:00→20:23)
[2019-12-23 11:00] VITALS: BP 146/76
[2019-12-23] MEDS: FERROUS GLUCONATE 325 MG TABLET PO SCH ×3 (14:00→18:28)
[2019-12-23] MEDS: PANTOPRAZOLE SODIUM 40 MG TABLET.DR PO SCH (14:19)
[2019-12-23 16:00] VITALS: BP 118/70
--- NOTE | 2019-12-23 17:16 | NUR ---
cm note met with patient and states resides at home with spouse, independent with ambulation. no dme. has provider 23hrs/wk, dc plan is back home with spouse at time of dc. no dc needs. transports. Addendum: 12/23/19 at 1718 by MAURA QUIÑONEZ CM Amended: Links added.
[2019-12-23] MEDS: MONTELUKAST SODIUM 10 MG TAB PO SCH (20:21)
[2019-12-23] MEDS: ROPINIROLE HCL 1 MG TABLET PO SCH (20:22)
[2019-12-23] MEDS: APIXABAN 5 MG TABLET PO SCH (20:22)
--- NOTE | 2019-12-23 20:25 | NUR ---
MEDS SHIFT ASSESSMENT DONE, PLEASE REFER TO CHART. DUE MEDS ADMINISTERED, EMELY ABREU STARTED. PT TOLERATED MEDS WELL. DISCONTINUED HEPARIN DRIP AT THIS TIME. KEPT RESTED AND COMFORTABLE WITH HOB ELEVATED. CALL LIGHT WITHIN REACH. Addendum: 12/23/19 at 2301 by JORGE LUIS MARTINEZ RN RN Amended: Links added.
[2019-12-23 20:28] VITALS: BP 134/81
--- NOTE | 2019-12-23 21:15 | NUR ---
SNACK PT CLAIMS HE IS READY FOR THE REST OF HIS PM MEDS. PENDING MEDS ADMINISTERED, TOLERATED WELL. PM SNACK PROVIDED PER PT REQUEST. LEFT EATING IN BED. WILL MONITOR PT.
[2019-12-23] MEDS: TRAZODONE HCL 100 MG TABLET PO SCH (21:16)
[2019-12-24 00:28] VITALS: BP 137/65
--- NOTE | 2019-12-24 01:54 | NUR ---
ROUNDS PT RESTING WELL, FAIRLY ASLEEP. NO DISTRESS NOTED. KEPT RESTED AND COMFORTABLE. CALL LIGHT WITHIN REACH. WILL MONITOR PT.
--- NOTE | 2019-12-24 02:40 | NUR ---
REFUSED COLLAR PADDER BLINDSTITCH CHECKED PT'S TELE MONITOR TELE CALLED OF IT BEING OFF. PT HAD EPISODES OF DIAPHORESIS AND TELE STICKERS ARE COMING OFF. COLLAR PADDER BLINDSTITCH AND PCP HAD OFFERED PT A BATH THROUGHOUT THE NIGHT BUT REFUSED. CLAIMS HE WILL WAIT FOR THE TO BRING HIS UNDIES.
[2019-12-24 04:28] VITALS: BP 158/78
[2019-12-24] MEDS: MORPHINE SULFATE 2 MG/ML 1ML SYG IVP PRN ×2 (04:51→09:52)
--- NOTE | 2019-12-24 04:51 | NUR ---
PAIN PT HAS COUGHING EPISODE AND CLAIMS OF RIB CAGE PAINS. MEDICATED WITH MORPHINE IV. KEPT RESTED AND COMFORTABLE. WILL RE-ASSESS PT.
[2019-12-24] MEDS: IPRATROPIUM/ALBUTEROL SULFATE 3 ML SOLUTION IH PRN (05:18)
[2019-12-24 05:39] LABS: HEMATOCRIT 37.4 % (36-48); MEAN CORPUSCULAR HEMOGLOBIN 26.4 pg (27.0-33.0); MEAN CORPUSCULAR HGB CONC 29.9 g/dL (32.0-36.0); MEAN CORPUSCULAR VOLUME 88.2 fL (79-99); NUCLEATED RED BLOOD CELLS 0.2 % (0.0-0.19); PLATELET COUNT (AUTO) 455 K/uL (130-400); RED BLOOD CELL COUNT(AUTO) 4.24 MIL/uL (4.00-5.50); WHITE BLOOD COUNT (AUTO) 12.6 K/uL (4.8-10.8)
[2019-12-24 05:52] LABS: CREATININE 1.1 mg/dL (0.5-1.5)
[2019-12-24] MEDS: PANTOPRAZOLE SODIUM 40 MG TABLET.DR PO SCH (06:18)
[2019-12-24] MEDS: INSULIN HUMULIN R 100 UNIT/ML 3ML SQ SCH (06:29)
[2019-12-24] MEDS ORDERED: APIX5TAB PO (07:39)
[2019-12-24 08:13] VITALS: BP 122/69
[2019-12-24] MEDS: PREDNISONE 20 MG TABLET PO SCH (08:25)
[2019-12-24] MEDS: APIXABAN 5 MG TABLET PO SCH (08:26)
[2019-12-24] MEDS: CLONAZEPAM 1 MG TABLET PO SCH (08:26)
[2019-12-24] MEDS: MAGNESIUM OXIDE 400 MG TABLET PO SCH (08:27)
[2019-12-24] MEDS: CARBIDOPA-LEVODOPA 25-100 TAB PO SCH (08:27)
[2019-12-24] MEDS: PRASTERONE 25 MG PO SCH (08:28)
--- NOTE | 2019-12-24 10:17 | NUR ---
INFLUENZA VACCINE PT HAS ALREADY RECEIVED INFLUENZA VACCINE ON 09/11 Addendum: 12/24/19 at 1020 by PRABHA BOWENS RN Amended: Links added.
--- NOTE | 2019-12-24 10:50 | NUR ---
BRIAN GIVEN DISCHARGE INSTRUCTION AND VERBALIZED UNDERSTANDING , TELEMETRY UNIT NOTIFIED AND UNIT REMOVED , IV REMOVED WITH CATHETER INTACT AND SITE DRESSED, REVIEWED MEDICATIONS AND FOLLOW-UP APPOINTMENT NO QUESTIONS OR CONCERNS AT THIS TIME. PATIENT DRESSING AND WILL CALL WHEN RIDE IS HERE AND HE READY TO LEAVE .
[2019-12-30] MEDS ORDERED: APIXABAN 5 MG TABLET PO SCH (21:00)
== END 2019-12-24 11:17 | disposition home or self-care (01) ==
LOC: EDH 10:18 → EDHIP 16:56 → 4BH 21:19
PROVIDERS: ADMIT Internal Medicine Critical Care Medicine; ATTEND Internal Medicine Critical Care Medicine
DX: D86.0 Sarcoidosis of lung (principal); J84.10 Pulmonary fibrosis, unspecified; J44.0 Chronic obstructive pulmonary disease with (acute) lower respiratory infection; D72.829 Elevated white blood cell count, unspecified; R79.1 Abnormal coagulation profile; I82.432 Acute embolism and thrombosis of left popliteal vein; E43 Unspecified severe protein-calorie malnutrition; Z87.442 Personal history of urinary calculi; Z87.891 Personal history of nicotine dependence; Z98.84 Bariatric surgery status; Z79.891 Long term (current) use of opiate analgesic; Z79.01 Long term (current) use of anticoagulants; Z79.899 Other long term (current) drug therapy; Z88.6 Allergy status to analgesic agent; Z88.3 Allergy status to other anti-infective agents; Z88.8 Allergy status to other drugs, medicaments and biological substances
CPT/HCPCS: 36415 ×3; 71045; 71046; 71275; 80048; 80053; 82550; 82948 ×6; 83880; 84145; 84484; 85025; 85027 ×2; 85378; 85610; 85730 ×4; 87071; 87205; 87804 ×2; 93005; 93970; 94640 ×5; 94664; 96365; 96366; 96375; 96376 ×2; 99285; G0378 ×28; J0456; J1644 ×3; J1815; J1956; J2930; Q9967; C9113

== ENCOUNTER 2019-12-27 22:14 | Emergency (ER) | payer MEDICARE ==
[~2019-12-27 22:14] MED LIST changes: -ACET1TAB25 PO; +APIX5TAB PO; -CARB-38 PO; +CLON2TAB21 PO; +FENO54TA6 PO; -FLUT16H NASAL; +FURO20TA4 PO; +GUAI600T50 PO; +LIPA1CAP18 PO; +POTA10CA44 PO; +RISP2TAB22 PO; +SUVO5TAB PO; -TYL3 PO; +TYL4 PO
[2019-12-27 23:20] LABS: BASOPHILS % (AUTO) 0.6 % (0.0-5.0); EOSINOPHILS % (AUTO) 0.8 % (0.0-8.0); HEMATOCRIT 37.5 % (36-48); LYMPHOCYTES % (AUTO) 9.3 % (21.0-51.0); MEAN CORPUSCULAR HEMOGLOBIN 26.6 pg (27.0-33.0); MEAN CORPUSCULAR HGB CONC 30.4 g/dL (32.0-36.0); MEAN CORPUSCULAR VOLUME 87.6 fL (79-99); MONOCYTES % (AUTO) 6.6 % (3.0-13.0); NEUTROPHILS % (AUTO) 76.6 % (40.0-77.0); PLATELET COUNT (AUTO) 430 K/uL (130-400); RED BLOOD CELL COUNT(AUTO) 4.28 MIL/uL (4.00-5.50); RED CELL DISTRIBUTION WIDTH 16.9 % (11.0-15.5); WHITE BLOOD COUNT (AUTO) 13.3 K/uL (4.8-10.8)
[2019-12-27 23:22] LABS: POTASSIUM 4.2 mmol/L (3.5-5.1)
[2019-12-27] MEDS ORDERED: ONDANSETRON HCL 4 MG/2 ML VIAL ONE (23:37)
== END 2019-12-28 00:38 | disposition home or self-care (01) ==
LOC: EDH 22:14
DX: I82.4Z2 Acute embolism and thrombosis of unspecified deep veins of left distal lower extremity (principal); Z79.891 Long term (current) use of opiate analgesic; Z88.6 Allergy status to analgesic agent; Z88.2 Allergy status to sulfonamides; Z88.8 Allergy status to other drugs, medicaments and biological substances
CPT/HCPCS: 36415; 71046; 80048; 84484; 85025; 93005; 93971; 99285; J2405

== ENCOUNTER 2020-05-26 20:26 | Emergency (ER) | payer MEDICARE ==
[2020-05-26 21:25] LABS: BASOPHILS % (AUTO) 0.3 % (0.0-5.0); EOSINOPHILS % (AUTO) 3.1 % (0.0-8.0); HEMATOCRIT 36.3 % (36-48); LYMPHOCYTES % (AUTO) 2.9 % (21.0-51.0); MEAN CORPUSCULAR HEMOGLOBIN 27.5 pg (27.0-33.0); MONOCYTES % (AUTO) 9.6 % (3.0-13.0); NEUTROPHILS % (AUTO) 83.6 % (40.0-77.0); PLATELET COUNT (AUTO) 244 K/uL (130-400); RED BLOOD CELL COUNT(AUTO) 4.22 MIL/uL (4.00-5.50); RED CELL DISTRIBUTION WIDTH 14.6 % (11.0-15.5); WHITE BLOOD COUNT (AUTO) 9.8 K/uL (4.8-10.8)
[2020-05-26 21:26] LABS: APPEARANCE,URINE Clear (CLEAR); BILIRUBIN,URINE Negative (NEGATIVE); COLOR,URINE Yellow (YELLOW); GLUCOSE, URINE (UA) Negative (NEGATIVE); KETONES,URINE Negative (NEGATIVE); LEUKOCYTE ESTERASE ,URINE Small (NEGATIVE); NITRATE,URINE Negative (NEGATIVE); OCCULT BLOOD,URINE Negative (NEGATIVE); PROTEIN,URINE Negative (NEGATIVE)
[2020-05-26 21:35] LABS: BACTERIA,URINE Few /HPF (None Seen); RBC,URINE 0-1 /HPF (0-1)
[2020-05-26 21:36] LABS: SQUAMOUS EPITHELIAL CELL,UR Few /HPF (0-2)
[2020-05-26 21:38] LABS: ALBUMIN 3.1 g/dL (3.5-5.0); BILIRUBIN,TOTAL 0.3 mg/dL (0.2-1.0); CREATININE 1.1 mg/dL (0.5-1.5); POTASSIUM 3.7 mmol/L (3.5-5.1); TOTAL PROTEIN, SERUM 6.8 g/dL (6.0-8.3)
== END 2020-05-26 22:31 | disposition home or self-care (01) ==
LOC: EDH 20:26
DX: N39.0 Urinary tract infection, site not specified (principal); R50.9 Fever, unspecified; R05 Cough; R06.7 Sneezing; Z20.828 Contact with and (suspected) exposure to other viral communicable diseases
CPT/HCPCS: 36415; 71045; 80053; 81001; 85025; 87077; 87088; 87186; 87426; 99284; U0003

== ENCOUNTER → 2020-07-16 | Outpatient (CLI) | payer MEDICARE | END | disposition home or self-care (01) | LOC: RAH 13:02 | PROVIDERS: ATTEND Physician Assistant | DX: I82.462 Acute embolism and thrombosis of left calf muscular vein (principal) | CPT/HCPCS: 93971 ==

== ENCOUNTER 2020-08-10 02:20 | Emergency (ER) | payer MEDICARE | END 2020-08-10 05:28 | disposition home or self-care (01) | LOC: EDH 02:20 | DX: T17.1XXA Foreign body in nostril, initial encounter (principal); X58.XXXA Exposure to other specified factors, initial encounter; Y93.89 Activity, other specified; Y92.89 Other specified places as the place of occurrence of the external cause; Y99.8 Other external cause status | CPT/HCPCS: 70486 ==

== ENCOUNTER → 2020-09-05 | Outpatient (CLI) | payer MEDICARE ==
[~2020-09-05] MED LIST changes: -RISP2TAB22 PO; +RISP2TAB86 PO
== END | disposition home or self-care (01) ==
LOC: RAH 08:20
PROVIDERS: ATTEND Family Medicine
DX: I65.23 Occlusion and stenosis of bilateral carotid arteries (principal); R55 Syncope and collapse; R42 Dizziness and giddiness
CPT/HCPCS: 93880

== ENCOUNTER 2020-10-28 13:58 | Emergency (ER) | payer MEDICARE ==
[~2020-10-28 13:58] MED LIST changes: +MONT-39 PO; -MONT10TA26 PO; +SERT-440 PO; -SERT100T12 PO
[2020-10-28] MEDS ORDERED: METOCLOPRAMIDE 10 MG/2 ML VIAL ONE (14:43)
[2020-10-28] MEDS ORDERED: LORAZEPAM 0.5 MG TABLET ONE (14:43)
[2020-10-28 14:53] LABS: BASOPHILS % (AUTO) 0.4 % (0.0-5.0); EOSINOPHILS % (AUTO) 0.5 % (0.0-8.0); HEMATOCRIT 37.6 % (36-48); LYMPHOCYTES % (AUTO) 2.6 % (21.0-51.0); MEAN CORPUSCULAR HEMOGLOBIN 24.9 pg (27.0-33.0); MEAN CORPUSCULAR HGB CONC 31.1 g/dL (32.0-36.0); MONOCYTES % (AUTO) 2.1 % (3.0-13.0); NEUTROPHILS % (AUTO) 93.7 % (40.0-77.0); PLATELET COUNT (AUTO) 316 K/uL (130-400); RED CELL DISTRIBUTION WIDTH 15.9 % (11.0-15.5); WHITE BLOOD COUNT (AUTO) 14.8 K/uL (4.8-10.8)
[2020-10-28] MEDS ORDERED: 0.9%NACL 1000ML 1,000 ML IV ONE (14:59)
[2020-10-28 15:19] LABS: BILIRUBIN,TOTAL 0.6 mg/dL (0.2-1.0); CREATININE 1.2 mg/dL (0.5-1.5); POTASSIUM 4.5 mmol/L (3.5-5.1); TOTAL PROTEIN, SERUM 7.4 g/dL (6.0-8.3)
[2020-10-28 15:39] LABS: APPEARANCE,URINE Clear (CLEAR); BILIRUBIN,URINE Negative (NEGATIVE); COLOR,URINE Yellow (YELLOW); GLUCOSE, URINE (UA) Negative (NEGATIVE); KETONES,URINE Negative (NEGATIVE); LEUKOCYTE ESTERASE ,URINE Negative (NEGATIVE); NITRATE,URINE Negative (NEGATIVE); OCCULT BLOOD,URINE Negative (NEGATIVE); PH,URINE 6.5 (5.0-8.0); PROTEIN,URINE Negative (NEGATIVE); UROBILINOGEN,URINE 0.2 mg/dL (0.2-1.0)
[2020-12-18] MEDS ORDERED: ERGO500093 PO (22:31)
[2020-12-18] MEDS ORDERED: PHEN37.596 PO (22:31)
[2020-12-18] MEDS ORDERED: PHEN15CA61 PO (22:31)
== END 2020-10-28 16:23 | disposition home or self-care (01) ==
LOC: EDSEX → EDH 13:58
DX: K52.89 Other specified noninfective gastroenteritis and colitis (principal); Z91.14 Patient's other noncompliance with medication regimen; Z20.828 Contact with and (suspected) exposure to other viral communicable diseases; Z88.1 Allergy status to other antibiotic agents; Z88.6 Allergy status to analgesic agent; Z88.5 Allergy status to narcotic agent; Z88.8 Allergy status to other drugs, medicaments and biological substances; Z87.442 Personal history of urinary calculi
CPT/HCPCS: 36415; 80053; 81003; 82550; 83690; 84484; 85025; 87426; 96361; 96374; 99283; J2765; J7030; U0003

== ENCOUNTER 2020-12-17 18:23 | Observation (INO) | payer MEDICARE ==
[~2020-12-17] VITALS: Ht 167.6 cm; Wt 102.6 kg
[~2020-12-17 18:23] MED LIST changes: -MONT-39 PO; +MONT10TA32 PO
[2020-12-17 19:08] LABS: BASOPHILS % (AUTO) 0.3 % (0.0-5.0); HEMATOCRIT 34.8 % (36-48); LYMPHOCYTES % (AUTO) 2.7 % (21.0-51.0); MEAN CORPUSCULAR HEMOGLOBIN 24.2 pg (27.0-33.0); MEAN CORPUSCULAR HGB CONC 30.7 g/dL (32.0-36.0); MEAN CORPUSCULAR VOLUME 78.6 fL (79-99); MONOCYTES % (AUTO) 6.4 % (3.0-13.0); NEUTROPHILS % (AUTO) 88.6 % (40.0-77.0); NUCLEATED RED BLOOD CELLS 0.2 % (0.0-0.19); PLATELET COUNT (AUTO) 223 K/uL (130-400); RED BLOOD CELL COUNT(AUTO) 4.43 MIL/uL (4.00-5.50); RED CELL DISTRIBUTION WIDTH 17.6 % (11.0-15.5); WHITE BLOOD COUNT (AUTO) 12.1 K/uL (4.8-10.8)
[2020-12-17 19:23] LABS: INR 1.04 (0.85-1.15); PROTHROMBIN TIME 11.3 SEC (9.6-11.6)
[2020-12-17 19:25] LABS: PARTIAL THROMBOPLASTIN TIME 26.1 SEC (26.3-35.5)
[2020-12-17 19:34] LABS: ABG BASE EXCESS -1.2 mmol/L (-2.0-3.0); ABG HCO3 21.2 mmol/L (21.0-28.0); ABG OXYGEN SATURATION 94.8 % (95.0-99.0); ABG PCO2 30 mmHg (32-45)
[2020-12-17 19:35] LABS: ALBUMIN 3.8 g/dL (3.5-5.0); BILIRUBIN,TOTAL 0.5 mg/dL (0.2-1.0); TOTAL PROTEIN, SERUM 7.3 g/dL (6.0-8.3)
[2020-12-17] MEDS ORDERED: ONDANSETRON HCL 4 MG/2 ML VIAL ONE (19:42)
[2020-12-17] MEDS ORDERED: METOCLOPRAMIDE 10 MG/2 ML VIAL ONE (19:51)
[2020-12-17] MEDS ORDERED: AZITHROMYCIN 500MG+NS 250ML 250 ML IV ONE (19:59)
[2020-12-17] MEDS ORDERED: CEFTRIAXONE SODIUM 1 GM ONE (19:59)
[2020-12-17] MEDS ORDERED: SODIUM CHLORIDE 0.9% 1000ML 3,000 ML IV ONE (20:18)
[2020-12-17] MEDS ORDERED: MORPHINE SULFATE 4 MG/1ML SYG ONE (20:19)
[2020-12-17 21:06] LABS: MAGNESIUM 1.2 mg/dL (1.80-2.40); PHOSPHORUS 3.5 mg/dL (2.5-4.9)
[2020-12-17] MEDS: SODIUM CHLORIDE 0.9% 1000ML 1,000 ML IV SCH (22:15)
[2020-12-17] MEDS ORDERED: INSULIN IV PRN ×2 (22:30)
[2020-12-17] MEDS ORDERED: DEXTROSE 50%-WATER 50 ML DISP.SYRIN IV PRN ×3 (22:30→22:45)
[2020-12-17] MEDS ORDERED: INSULIN DRIP 1 UNIT/ML SSIV3 IV PRN ×2 (22:30)
[2020-12-17] MEDS ORDERED: INSULIN IV SS2 IV PRN ×2 (22:30)
[2020-12-17] MEDS ORDERED: GLUCAGON 1MG KIT 1 MG ML IM PRN ×2 (22:30→22:45)
[2020-12-17] MEDS ORDERED: INSULIN IV SS1 IV PRN ×2 (22:30)
[2020-12-18] MEDS ORDERED: MIDODRINE HCL 5 MG TABLET ONE ×2 (00:02→08:30)
[2020-12-18] MEDS ORDERED: CLONAZEPAM 0.5 MG TABLET ONE (00:04)
[2020-12-18] MEDS ORDERED: TRAZODONE HCL 50 MG TAB ONE (00:04)
[2020-12-18] MEDS ORDERED: RISPERIDONE 1 MG TABLET ONE (02:13)
[2020-12-18] MEDS ORDERED: ROPINIROLE HCL 1 MG TABLET ONE (02:13)
[2020-12-18] MEDS: INSULIN R PO SS2 SQ SCH ×4 (07:30→20:59)
[2020-12-18] MEDS: SODIUM BICARBONATE 650 MG TAB PO SCH ×3 (08:00→17:00)
[2020-12-18] MEDS ORDERED: CEFTRIAXONE SODIUM 1 GM IVP SCH (08:00)
[2020-12-18] MEDS ORDERED: SODIUM CHLORIDE 0.9% 100 ML IV ONE (08:25)
[2020-12-18] MEDS ORDERED: APIXABAN 2.5 MG TABLET PO ONE (08:29)
[2020-12-18] MEDS ORDERED: SODIUM BICARBONATE 650 MG TAB ONE ×2 (08:29→12:53)
[2020-12-18] MEDS ORDERED: PREDNISONE 20 MG TABLET ONE (08:29)
[2020-12-18] MEDS ORDERED: SERTRALINE HCL 50 MG TABLET ONE (08:30)
[2020-12-18] MEDS ORDERED: CEFTRIAXONE SODIUM 1 GM ONE (08:30)
[2020-12-18] MEDS ORDERED: PREDNISONE 10 MG TABLET ONE (08:31)
[2020-12-18] MEDS ORDERED: METOCLOPRAMIDE 10 MG/2 ML VIAL ONE (08:31)
[2020-12-18] MEDS ORDERED: ACETAMINOPHEN-CODEINE 300/30MG TAB ONE (10:07)
[2020-12-18] MEDS: SODIUM CHLORIDE 0.9% 1000ML 1,000 ML IV SCH (11:35)
[2020-12-18] MEDS ORDERED: AZITHROMYCIN 500MG+NS 250ML 250 ML IV SCH (20:00)
[2020-12-18 20:27] VITALS: BP 108/62
[2020-12-18] MEDS ORDERED: POTASSIUM CHLORIDE 20MEQ/100ML 100 ML IV PRN (20:45)
[2020-12-18] MEDS ORDERED: MAGNESIUM 2GM PREMIX 50ML 50 ML IV PRN (20:45)
[2020-12-18] MEDS ORDERED: POTASSIUM CHLORIDE 10% ELIXIR 20 MEQ/15 ML UDCUP PO PRN (20:45)
[2020-12-18] MEDS ORDERED: LIDOCAINE HCL-MPF 1% 2ML VIAL IV PRN (20:45)
[2020-12-18] MEDS ORDERED: POTASSIUM CHLORIDE 20 MEQ ERTAB PO PRN (20:45)
[2020-12-18] MEDS ORDERED: ALBUTEROL INHALER 90MCG/INH IH PRN (21:00)
[2020-12-18 21:23] LABS: CREATININE 1.3 mg/dL (0.5-1.5); POTASSIUM 4.4 mmol/L (3.5-5.1); THYROID STIMULATING HORMONE 3.17 uIU/mL (0.36-3.74)
[2020-12-18 21:25] LABS: CRP QUANTITATIVE 49.3 mg/L (0.00-9.0)
[2020-12-18] MEDS ORDERED: PRED10TA3 PO (22:31)
[2020-12-18] MEDS ORDERED: CLON2TAB11 PO (22:31)
[2020-12-18] MEDS ORDERED: ROPI3TAB5 PO (22:31)
[2020-12-18] MEDS ORDERED: SUVO10TA PO (22:31)
[2020-12-18] MEDS ORDERED: PHEN37.591 PO (22:31)
[2020-12-18] MEDS ORDERED: ERGO500014 PO (22:31)
[2020-12-18] MEDS ORDERED: PHEN15CA PO (22:31)
[2020-12-18] MEDS ORDERED: MIDO5TAB4 PO (22:31)
[2020-12-18] MEDS ORDERED: METF-444 PO (22:31)
[2020-12-18] MEDS: ZOSYN 3.375GM+NS 50ML 50 ML IV SCH (22:51)
[2020-12-19] VITALS: BP 121/69
[2020-12-19] MEDS: SODIUM CHLORIDE 0.9% 1000ML 1,000 ML IV SCH (00:21)
[2020-12-19 04:12] LABS: HEMATOCRIT 28.8 % (36-48); MEAN CORPUSCULAR HEMOGLOBIN 23.8 pg (27.0-33.0); MEAN CORPUSCULAR HGB CONC 29.5 g/dL (32.0-36.0); MEAN CORPUSCULAR VOLUME 80.7 fL (79-99); RED BLOOD CELL COUNT(AUTO) 3.57 MIL/uL (4.00-5.50); RED CELL DISTRIBUTION WIDTH 18.6 % (11.0-15.5); WHITE BLOOD COUNT (AUTO) 7.4 K/uL (4.8-10.8)
[2020-12-19 04:21] LABS: MAGNESIUM 1.8 mg/dL (1.80-2.40); POTASSIUM 3.7 mmol/L (3.5-5.1)
[2020-12-19 04:28] LABS: % IRON SATURATION 5.7 % (22-44)
[2020-12-19] MEDS: ZOSYN 3.375GM+NS 50ML 50 ML IV SCH (06:03)
[2020-12-19] MEDS: INSULIN R PO SS2 SQ SCH (06:36)
[2020-12-19] MEDS ORDERED: METOCLOPRAMIDE 10 MG/2 ML VIAL IVP SCH (07:30)
[2020-12-19 08:00] VITALS: BP_SYST 114; BP_SYST 116; BP_DIAS 67; BP_DIAS 75
[2020-12-19] MEDS: SODIUM BICARBONATE 650 MG TAB PO SCH (08:05)
[2020-12-19 09:24] LABS: CREATININE 1.1 mg/dL (0.5-1.5); POTASSIUM 3.3 mmol/L (3.5-5.1)
[2020-12-19] MEDS ORDERED: ACETAMINOPHEN-CODEINE 300/30MG TAB PO PRN (10:15)
[2020-12-19] MEDS ORDERED: CLONAZEPAM 2 MG TABLET PO PRN (10:15)
[2020-12-19] MEDS ORDERED: AMOX1TAB15 PO (10:38)
[2020-12-19 10:57] LABS: RETICULOCYTE % (AUTO) 2.5 % (0.42-2.23)
[2020-12-19] MEDS ORDERED: CLONAZEPAM 1 MG TABLET PO SCH (11:32)
[2020-12-19] MEDS ORDERED: GUAIFENESIN 600 MG TABLET.ER PO PRN (11:35)
[2020-12-19] MEDS ORDERED: ERGOCALCIFEROL (VITAMIN D2) 50,000 UNIT CAPSULE PO SCH (11:35)
[2020-12-19] MEDS ORDERED: METFORMIN HCL 500 MG TABLET PO SCH (11:36)
[2020-12-19] MEDS ORDERED: FLUTICASONE/VILANTEROL 1 EACH AER.POW.BA IH SCH (11:44)
[2020-12-19] MEDS ORDERED: RISPERIDONE 1 MG TABLET PO SCH (11:48)
[2020-12-19] MEDS ORDERED: PRASTERONE 25 MG PO SCH (11:48)
[2020-12-19] MEDS ORDERED: SERTRALINE HCL 50 MG TABLET PO SCH (11:53)
[2020-12-19] MEDS ORDERED: POTASSIUM CHLORIDE 10% ELIXIR 20 MEQ/15 ML UDCUP PO SCH (12:15)
[2020-12-19] MEDS ORDERED: ROPINIROLE HCL 1 MG TABLET PO SCH (14:00)
[2020-12-19] MEDS ORDERED: MONTELUKAST SODIUM 10 MG TAB PO SCH (21:00)
[2020-12-19] MEDS ORDERED: APIXABAN 5 MG TABLET PO SCH (21:00)
[2020-12-19] MEDS ORDERED: FENOFIBRATE 54 MG PO SCH (21:00)
[2020-12-19] MEDS ORDERED: TRAZODONE HCL 100 MG TABLET PO SCH (21:00)
[2020-12-19] MEDS ORDERED: SUVOREXANT 10 MG PO SCH (21:00)
[2020-12-26] MEDS ORDERED: TESTOSTERONE CYPIONATE IM SCH (09:00)
== END 2020-12-19 12:38 | disposition home or self-care (01) ==
LOC: EDH 18:23 → EDHIP 21:25 → 2AH 12-18 18:36
PROVIDERS: ADMIT Internal Medicine; ATTEND Internal Medicine
DX: J96.01 Acute respiratory failure with hypoxia (principal); Z20.822 Contact with and (suspected) exposure to COVID-19; K52.9 Noninfective gastroenteritis and colitis, unspecified; E86.0 Dehydration; D72.829 Elevated white blood cell count, unspecified; E86.1 Hypovolemia; E66.9 Obesity, unspecified; L68.0 Hirsutism; E11.9 Type 2 diabetes mellitus without complications; E87.2 Acidosis; F64.9 Gender identity disorder, unspecified; E87.1 Hypo-osmolality and hyponatremia; Z87.891 Personal history of nicotine dependence; Z79.01 Long term (current) use of anticoagulants; Z79.899 Other long term (current) drug therapy; Z88.3 Allergy status to other anti-infective agents; Z88.6 Allergy status to analgesic agent; Z88.8 Allergy status to other drugs, medicaments and biological substances; Z68.36 Body mass index [BMI] 36.0-36.9, adult
CPT/HCPCS: 36415 ×3; 36600; 71045 ×2; 74176; 80048 ×3; 80053; 82533; 82550; 82607; 82728 ×2; 82803; 82948 ×6; 83605 ×2; 83615; 83690 ×2; 83735 ×2; 84100; 84145; 84443; 84484; 85025; 85027; 85378; 85610; 85730; 86140; 86900; 86901; 87040 ×2; 87426; 87804 ×2; 93005; 96361; 96365; 96366 ×2; 96375; 99291; G0378 ×40; J0456; J0696 ×2; J2270; J2405; J2543 ×2; J2765 ×3; J7030; J7512; U0003

== ENCOUNTER 2021-01-27 00:55 | Observation (INO) | payer MEDICARE ==
[~2021-01-27] VITALS: Ht 167.6 cm; Wt 104.4 kg
[~2021-01-27 00:55] MED LIST changes: +AMOX1TAB15 PO; +CLON2TAB11 PO; -CLON2TAB21 PO; -DEXL30CA3 PO; -ERGO500014 PO; +ERGO500093 PO; -FERR324T PO; -FURO20TA4 PO; -LIPA1CAP18 PO; -MAGN500C15 PO; +METF-444 PO; +MONT-39 PO; -MONT10TA32 PO; -POTA10CA44 PO; +PRED10TA3 PO; -PRED20TA3 PO; -ROPI0.5T7 PO; +ROPI3TAB5 PO; +SUVO10TA PO; -SUVO5TAB PO
[2021-01-27 01:44] LABS: BASOPHILS % (AUTO) 0.8 % (0.0-5.0); EOSINOPHILS % (AUTO) 1.1 % (0.0-8.0); HEMATOCRIT 31.5 % (36-48); LYMPHOCYTES % (AUTO) 8.4 % (21.0-51.0); MEAN CORPUSCULAR HEMOGLOBIN 24.1 pg (27.0-33.0); MEAN CORPUSCULAR HGB CONC 30.5 g/dL (32.0-36.0); MEAN CORPUSCULAR VOLUME 79.1 fL (79-99); MONOCYTES % (AUTO) 11.6 % (3.0-13.0); NEUTROPHILS % (AUTO) 77.7 % (40.0-77.0); PLATELET COUNT (AUTO) 209 K/uL (130-400); RED BLOOD CELL COUNT(AUTO) 3.98 MIL/uL (4.00-5.50)
[2021-01-27 01:57] LABS: APPEARANCE,URINE Clear (CLEAR); BILIRUBIN,URINE Negative (NEGATIVE); COLOR,URINE Yellow (YELLOW); GLUCOSE, URINE (UA) Negative (NEGATIVE); KETONES,URINE Negative (NEGATIVE); LEUKOCYTE ESTERASE ,URINE Negative (NEGATIVE); NITRATE,URINE Negative (NEGATIVE); OCCULT BLOOD,URINE Negative (NEGATIVE); PROTEIN,URINE Negative (NEGATIVE); UROBILINOGEN,URINE 0.2 mg/dL (0.2-1.0)
[2021-01-27 02:03] LABS: INR 0.97 (0.85-1.15); PROTHROMBIN TIME 10.6 SEC (9.6-11.6)
[2021-01-27 02:04] LABS: PARTIAL THROMBOPLASTIN TIME 20.4 SEC (26.3-35.5)
[2021-01-27 02:05] LABS: ALBUMIN 3.2 g/dL (3.5-5.0); BILIRUBIN,TOTAL 0.4 mg/dL (0.2-1.0); CREATININE 0.9 mg/dL (0.5-1.5); POTASSIUM 3.5 mmol/L (3.5-5.1); TOTAL PROTEIN, SERUM 6.3 g/dL (6.0-8.3)
[2021-01-27] MEDS ORDERED: DiphenhydrAMINE HCL 50 MG/ML VIAL ONE (02:20)
[2021-01-27] MEDS ORDERED: LIDOCAINE PF 100MG/5ML (2%) SYRINGE 5ML ONE (02:20)
[2021-01-27] MEDS ORDERED: CEFTRIAXONE 1G VIAL ONE (02:21)
[2021-01-27] MEDS ORDERED: AZITHROMYCIN 500MG+NS 250ML 250 ML IV ONE (02:22)
[2021-01-27] MEDS ORDERED: 0.9%NACL 1000ML 2,000 ML IV ONE (02:22)
[2021-01-27 02:25] LABS: ABG HCO3 25.6 mmol/L (21.0-28.0); ABG OXYGEN SATURATION 95.7 % (95.0-99.0); ABG PCO2 37 mmHg (32-45)
[2021-01-27] MEDS ORDERED: LABETALOL 20MG SYG IV PRN (08:30)
[2021-01-27] MEDS ORDERED: ACETAMINOPHEN 325 MG TAB PO PRN (08:30)
[2021-01-27] MEDS ORDERED: CLONIDINE HCL 0.1 MG TABLET PO PRN (08:30)
[2021-01-27] MEDS ORDERED: ACETAMINOPHEN 650 MG SUPPOSITORY RC PRN (08:30)
[2021-01-27] MEDS ORDERED: METOCLOPRAMIDE 10 MG/2 ML VIAL IVP PRN (08:30)
[2021-01-27] MEDS: ENOXAPARIN SODIUM 40 MG/0.4 ML SYRINGE SQ SCH (09:00)
[2021-01-27] MEDS ORDERED: PREDNISONE 10 MG TABLET PO SCH (09:00)
[2021-01-27] MEDS: METFORMIN HCL 500 MG TABLET PO SCH (09:00)
[2021-01-27] MEDS ORDERED: LACTATED RINGERS 1000ML 1,000 ML IV ONE (09:13)
[2021-01-27] MEDS ORDERED: METOCLOPRAMIDE 10 MG/2 ML VIAL ONE (09:13)
[2021-01-27 10:30] LABS: CREATINE KINASE, TOTAL 37 U/L (21-232); MYOGLOBIN 32 ng/mL (10-92); TROPONIN I < 0.04 ng/mL (0.00-0.06)
[2021-01-27] MEDS ORDERED: CLONAZEPAM 2 MG TABLET PO PRN (10:45)
[2021-01-27] MEDS ORDERED: TYLENOL PO PRN (10:45)
[2021-01-27] MEDS ORDERED: CLONAZEPAM 1MG TAB PO PRN (10:45)
[2021-01-27] MEDS ORDERED: ACETAMINOPHEN WITH CODEINE 1 TAB TAB ONE ×3 (10:51→21:50)
[2021-01-27] MEDS: INSULIN HUMULIN R 100 UNIT/ML 3ML SQ SCH ×3 (11:30→21:00)
[2021-01-27] MEDS: ALBUTEROL 0.083% 2.5 MG/3 ML INH IH SCH ×3 (12:06→23:51)
[2021-01-27] MEDS: ROPINIROLE HCL 1 MG TABLET PO SCH ×2 (14:00→21:00)
[2021-01-27 14:37] LABS: CREATINE KINASE, TOTAL 48 U/L (21-232); MYOGLOBIN 33 ng/mL (10-92); TROPONIN I < 0.04 ng/mL (0.00-0.06)
[2021-01-27 14:43] LABS: AMPHET/METH SCREEN,URINE NEGATIVE (NEGATIVE); BARBITURATE SCREEN, URINE NEGATIVE (NEGATIVE); BENZODIAZEPINES SCREEN,URINE NEGATIVE (NEGATIVE); CANNABINOID SCREEN,URINE NEGATIVE (NEGATIVE); COCAINE SCREEN,URINE NEGATIVE (NEGATIVE); OPIATE SCREEN,URINE NEGATIVE (NEGATIVE); PHENCYCLIDINE SCREEN,URINE NEGATIVE (NEGATIVE)
[2021-01-27] MEDS: ZOSYN 3.375GM+NS 50ML 50 ML IV SCH ×2 (14:45→22:45)
[2021-01-27] MEDS ORDERED: ZOSYN 3.375GM+NS 50ML 50 ML IV ONE (16:10)
[2021-01-27] MEDS: LACTATED RINGERS 1000ML 1,000 ML IV SCH (16:30)
[2021-01-27] MEDS: BUDESONIDE 0.5 MG/2 ML INH IH SCH (18:16)
[2021-01-27 20:23] LABS: CREATINE KINASE, TOTAL 51 U/L (21-232); MYOGLOBIN 29 ng/mL (10-92); TROPONIN I < 0.04 ng/mL (0.00-0.06)
[2021-01-27] MEDS: TRAZODONE HCL 100 MG TABLET PO SCH (21:00)
[2021-01-27] MEDS ORDERED: RISPERIDONE 2 MG PO SCH (21:00)
[2021-01-27] MEDS: MONTELUKAST SODIUM 10 MG TAB PO SCH (21:00)
[2021-01-27] MEDS ORDERED: ALBUTEROL 0.083% 2.5 MG/3 ML INH IH ONE (23:45)
[2021-01-28] VITALS (7 sets, daily range): BP systolic 102–142; BP diastolic 36–78
[2021-01-28] MEDS: LACTATED RINGERS 1000ML 1,000 ML IV SCH ×4 (00:30→16:52)
[2021-01-28] MEDS ORDERED: TEST100V11 IM (02:52)
[2021-01-28] MEDS ORDERED: SEMA1PEN3 SQ (02:52)
[2021-01-28] MEDS ORDERED: ACETAMINOPHEN WITH CODEINE 1 TAB TAB ONE (03:19)
[2021-01-28] MEDS: ZOSYN 3.375GM+NS 50ML 50 ML IV SCH ×3 (03:39→23:16)
[2021-01-28 05:39] LABS: BASOPHILS % (AUTO) 1.5 % (0.0-5.0); EOSINOPHILS % (AUTO) 5.2 % (0.0-8.0); HEMATOCRIT 31.4 % (36-48); LYMPHOCYTES % (AUTO) 9.3 % (21.0-51.0); MEAN CORPUSCULAR HEMOGLOBIN 24.1 pg (27.0-33.0); MEAN CORPUSCULAR HGB CONC 29.3 g/dL (32.0-36.0); MEAN CORPUSCULAR VOLUME 82.2 fL (79-99); MONOCYTES % (AUTO) 11.9 % (3.0-13.0); NEUTROPHILS % (AUTO) 71.5 % (40.0-77.0); PLATELET COUNT (AUTO) 184 K/uL (130-400); RED BLOOD CELL COUNT(AUTO) 3.82 MIL/uL (4.00-5.50); RED CELL DISTRIBUTION WIDTH 19.5 % (11.0-15.5); WHITE BLOOD COUNT (AUTO) 5.4 K/uL (4.8-10.8)
[2021-01-28 06:04] LABS: B-TYPE NATRIURETIC PEPTIDE 359 pg/mL (0-100)
[2021-01-28 06:06] LABS: CREATININE 0.9 mg/dL (0.5-1.5); POTASSIUM 3.5 mmol/L (3.5-5.1); THYROID STIMULATING HORMONE 2.83 uIU/mL (0.36-3.74)
[2021-01-28] MEDS: INSULIN HUMULIN R 100 UNIT/ML 3ML SQ SCH ×4 (06:15→23:29)
[2021-01-28] MEDS: ALBUTEROL 0.083% 2.5 MG/3 ML INH IH SCH ×4 (06:50→23:43)
[2021-01-28] MEDS: BUDESONIDE 0.5 MG/2 ML INH IH SCH ×2 (06:52→18:55)
[2021-01-28] MEDS: ERGOCALCIFEROL PO SCH (09:00)
[2021-01-28] MEDS: **HM** FENOFIBRATE 54MG PO SCH (09:00)
[2021-01-28] MEDS: ROPINIROLE HCL 1 MG TABLET PO SCH ×3 (09:00→21:00)
[2021-01-28] MEDS: CLONAZEPAM 1MG TAB PO SCH (09:50)
[2021-01-28] MEDS: ACETAMINOPHEN WITH CODEINE 1 TAB TAB PO PRN ×3 (09:51→23:15)
[2021-01-28] MEDS: SERTRALINE HCL 50 MG TABLET PO SCH (09:52)
[2021-01-28] MEDS: METFORMIN HCL 500 MG TABLET PO SCH (09:52)
[2021-01-28] MEDS: ENOXAPARIN SODIUM 40 MG/0.4 ML SYRINGE SQ SCH (09:53)
[2021-01-28] MEDS ORDERED: AMITRIPTYLINE 25 MG TABLET PO SCH (14:45)
[2021-01-28] MEDS ORDERED: IOHEXOL-350 50ML VIAL IV ONE (15:41)
[2021-01-28] MEDS: LORATADINE/PSEUDOEPHED 5/120 MG 1 EACH TAB.SR.12H PO SCH (23:14)
[2021-01-28] MEDS: APIXABAN 5 MG TABLET PO SCH (23:15)
[2021-01-28] MEDS: MONTELUKAST SODIUM 10 MG TAB PO SCH (23:15)
[2021-01-28] MEDS: TRAZODONE HCL 100 MG TABLET PO SCH (23:15)
[2021-01-29] MEDS: ACETAMINOPHEN WITH CODEINE 1 TAB TAB PO PRN ×2 (04:00→10:10)
[2021-01-29 04:34] VITALS: BP 134/44
[2021-01-29 05:09] LABS: HEMATOCRIT 29.8 % (36-48); MEAN CORPUSCULAR HEMOGLOBIN 24.1 pg (27.0-33.0); MEAN CORPUSCULAR HGB CONC 28.9 g/dL (32.0-36.0); MEAN CORPUSCULAR VOLUME 83.5 fL (79-99); RED BLOOD CELL COUNT(AUTO) 3.57 MIL/uL (4.00-5.50); RED CELL DISTRIBUTION WIDTH 19.6 % (11.0-15.5); WHITE BLOOD COUNT (AUTO) 5.5 K/uL (4.8-10.8)
[2021-01-29 05:17] LABS: CREATININE 0.9 mg/dL (0.5-1.5); POTASSIUM 3.3 mmol/L (3.5-5.1)
[2021-01-29] MEDS: BUDESONIDE 0.5 MG/2 ML INH IH SCH (06:25)
[2021-01-29] MEDS: ALBUTEROL 0.083% 2.5 MG/3 ML INH IH SCH ×2 (06:25→11:11)
[2021-01-29] MEDS: INSULIN HUMULIN R 100 UNIT/ML 3ML SQ SCH ×2 (06:42→11:30)
[2021-01-29] MEDS: ZOSYN 3.375GM+NS 50ML 50 ML IV SCH (06:42)
[2021-01-29 07:30] VITALS: BP 93/30
[2021-01-29] MEDS ORDERED: LIDOCAINE HCL-MPF 1% 2ML VIAL IV PRN (08:45)
[2021-01-29] MEDS ORDERED: POTASSIUM CHLORIDE 20MEQ/100ML 100 ML IV PRN (08:45)
[2021-01-29] MEDS ORDERED: POTASSIUM CHLORIDE 10% ELIXIR 20 MEQ/15 ML UDCUP PO PRN (08:45)
[2021-01-29] MEDS ORDERED: KCL 20 MEQ ERTAB PO PRN (08:45)
[2021-01-29] MEDS: **HM** FENOFIBRATE 54MG PO SCH (09:00)
[2021-01-29] MEDS: ERGOCALCIFEROL PO SCH (09:00)
[2021-01-29] MEDS ORDERED: AMITRIPTYLINE 25 MG TABLET PO SCH (09:00)
[2021-01-29] MEDS: ROPINIROLE HCL 1 MG TABLET PO SCH (09:57)
[2021-01-29] MEDS: CLONAZEPAM 1MG TAB PO SCH (09:58)
[2021-01-29] MEDS: METFORMIN HCL 500 MG TABLET PO SCH (09:58)
[2021-01-29] MEDS: APIXABAN 5 MG TABLET PO SCH (09:58)
[2021-01-29] MEDS: LORATADINE/PSEUDOEPHED 5/120 MG 1 EACH TAB.SR.12H PO SCH (09:59)
[2021-01-29] MEDS: SERTRALINE HCL 50 MG TABLET PO SCH (09:59)
[2021-01-29 11:00] VITALS: BP 125/61
[2021-01-29] MEDS ORDERED: PREDNISONE 10 MG TABLET PO SCH (11:15)
[2021-01-29] MEDS ORDERED: METO5TAB2 PO (11:31)
[2021-01-29] MEDS ORDERED: LEVO500T90 PO (11:31)
== END 2021-01-29 14:40 | disposition home or self-care (01) ==
LOC: EDSEX → EDH 00:55 → UNDOADMOB 08:17 → EDHIP 08:17 → 3DH 01-28 02:30 → UNDODISOB 01-29 14:40
PROVIDERS: ADMIT Internal Medicine; ATTEND Internal Medicine
DX: D86.9 Sarcoidosis, unspecified (principal); Z20.822 Contact with and (suspected) exposure to COVID-19; E86.0 Dehydration; R06.02 Shortness of breath; K52.9 Noninfective gastroenteritis and colitis, unspecified; E11.9 Type 2 diabetes mellitus without complications; I10 Essential (primary) hypertension; E66.9 Obesity, unspecified; G25.81 Restless legs syndrome; K44.9 Diaphragmatic hernia without obstruction or gangrene; R51.9 Headache, unspecified; F32.9 Major depressive disorder, single episode, unspecified; Z87.442 Personal history of urinary calculi; Z87.891 Personal history of nicotine dependence; Z98.84 Bariatric surgery status; Z79.84 Long term (current) use of oral hypoglycemic drugs; Z79.01 Long term (current) use of anticoagulants; Z79.899 Other long term (current) drug therapy; Z88.2 Allergy status to sulfonamides; Z88.6 Allergy status to analgesic agent; Z88.3 Allergy status to other anti-infective agents; Z88.8 Allergy status to other drugs, medicaments and biological substances; Z68.37 Body mass index [BMI] 37.0-37.9, adult
CPT/HCPCS: 36415 ×3; 36600; 70470; 71045 ×2; 74176; 80048 ×2; 80053; 80305; 81003; 82550 ×3; 82803; 82948 ×7; 83605 ×2; 83874 ×3; 83880 ×2; 84145; 84443; 84484 ×4; 85025 ×2; 85027; 85378; 85610; 85730; 87040 ×2; 87426; 87804 ×2; 93005; 93306; 93356; 94640 ×11; 94664; 96361; 96365; 96366 ×2; 96372; 96375; 99285; G0378 ×51; J0456; J0696; J1200; J1650; J1815; J2001; J2543 ×5; J2765 ×2; J7030; J7120 ×3; J7512; Q9967; U0003

== ENCOUNTER 2021-03-24 16:21 | Emergency (ER) | payer MEDICARE ==
[~2021-03-24] VITALS: Ht 167.6 cm; Wt 102.1 kg
[~2021-03-24 16:21] MED LIST changes: -AMOX1TAB15 PO; +LEVO500T89 PO; +METO5TAB2 PO; -MONT-39 PO; +MONT10TA32 PO; -RISP2TAB86 PO; +SEMA1PEN3 SQ; +TEST100V5 IM; -TEST200V21 IM
[2021-03-24] MEDS ORDERED: SODIUM CHLORIDE 0.9% 1000ML 1,000 ML IV SCH ×2 (16:40→17:11)
[2021-03-24 16:59] LABS: APPEARANCE,URINE Clear (CLEAR); BILIRUBIN,URINE Negative (NEGATIVE); COLOR,URINE Dark Yellow (YELLOW); GLUCOSE, URINE (UA) Negative (NEGATIVE); KETONES,URINE Trace mg/dL (NEGATIVE); LEUKOCYTE ESTERASE ,URINE Small (NEGATIVE); NITRATE,URINE Negative (NEGATIVE); OCCULT BLOOD,URINE Negative (NEGATIVE); PH,URINE 6.5 (5.0-8.0); PROTEIN,URINE Trace mg/dL (NEGATIVE)
[2021-03-24] MEDS ORDERED: METOCLOPRAMIDE 10 MG/2 ML VIAL IVP SCH (17:00)
[2021-03-24 17:06] LABS: BASOPHILS % (AUTO) 0.9 % (0.0-5.0); EOSINOPHILS % (AUTO) 1.9 % (0.0-8.0); HEMATOCRIT 33.5 % (36-48); LYMPHOCYTES % (AUTO) 11.7 % (21.0-51.0); MEAN CORPUSCULAR HEMOGLOBIN 24.5 pg (27.0-33.0); MEAN CORPUSCULAR HGB CONC 29.9 g/dL (32.0-36.0); MEAN CORPUSCULAR VOLUME 82.1 fL (79-99); MONOCYTES % (AUTO) 10.1 % (3.0-13.0); NEUTROPHILS % (AUTO) 74.9 % (40.0-77.0); PLATELET COUNT (AUTO) 251 K/uL (130-400); RED BLOOD CELL COUNT(AUTO) 4.08 MIL/uL (4.00-5.50); WHITE BLOOD COUNT (AUTO) 11.7 K/uL (4.8-10.8)
[2021-03-24 17:14] LABS: RBC,URINE 0-1 /HPF (0-1)
[2021-03-24 17:15] LABS: BACTERIA,URINE Rare /HPF (None Seen); SQUAMOUS EPITHELIAL CELL,UR Few /HPF (0-2)
[2021-03-24 17:16] LABS: MUCUS,URINE Rare LPF (None Seen); TRANSITIONAL EPI CELLS,URINE Rare /HPF (None Seen)
[2021-03-24 17:19] LABS: POTASSIUM 4.2 mmol/L (3.5-5.1)
[2021-03-24] MEDS ORDERED: SODIUM CHLORIDE 0.9% 1000ML 1,000 ML IV ONE (17:22)
[2021-03-24 17:23] LABS: ALBUMIN 3.3 g/dL (3.5-5.0); BILIRUBIN,TOTAL 0.6 mg/dL (0.2-1.0); TOTAL PROTEIN, SERUM 6.6 g/dL (6.0-8.3)
[2021-03-24 17:24] VITALS: BP 111/54
[2021-03-24] MEDS ORDERED: DICYCLOMINE HCL 20 MG TAB PO SCH (17:45)
[2021-03-24 20:43] VITALS: BP 134/79
== END 2021-03-24 20:49 | disposition home or self-care (01) ==
LOC: EDH 16:21
DX: K92.2 Gastrointestinal hemorrhage, unspecified (principal); R11.2 Nausea with vomiting, unspecified; E66.9 Obesity, unspecified; Z88.6 Allergy status to analgesic agent; Z88.1 Allergy status to other antibiotic agents; Z88.8 Allergy status to other drugs, medicaments and biological substances; Z79.899 Other long term (current) drug therapy
CPT/HCPCS: 36415; 80053; 81001; 82270; 83690; 85025; 96361; 96374; 99283; J2765; J7030

== ENCOUNTER 2021-05-28 12:22 | Emergency (ER) | payer MEDICARE ==
[~2021-05-28] VITALS: Ht 167.6 cm; Wt 102.1 kg
[2021-05-28 13:31] LABS: BASOPHILS % (AUTO) 1.3 % (0.0-5.0); EOSINOPHILS % (AUTO) 0.6 % (0.0-8.0); HEMATOCRIT 36.8 % (36-48); LYMPHOCYTES % (AUTO) 5.1 % (21.0-51.0); MEAN CORPUSCULAR HEMOGLOBIN 23.8 pg (27.0-33.0); MEAN CORPUSCULAR HGB CONC 29.6 g/dL (32.0-36.0); MEAN CORPUSCULAR VOLUME 80.3 fL (79-99); NEUTROPHILS % (AUTO) 90.4 % (40.0-77.0); PLATELET COUNT (AUTO) 389 K/uL (130-400); RED BLOOD CELL COUNT(AUTO) 4.58 MIL/uL (4.00-5.50); WHITE BLOOD COUNT (AUTO) 11.8 K/uL (4.8-10.8)
[2021-05-28 14:17] LABS: B-TYPE NATRIURETIC PEPTIDE 134 pg/mL (0-100)
[2021-05-28 14:36] LABS: APPEARANCE,URINE Clear (CLEAR); BILIRUBIN,URINE Negative (NEGATIVE); COLOR,URINE Yellow (YELLOW); GLUCOSE, URINE (UA) Negative (NEGATIVE); KETONES,URINE Negative (NEGATIVE); LEUKOCYTE ESTERASE ,URINE Negative (NEGATIVE); NITRATE,URINE Negative (NEGATIVE); OCCULT BLOOD,URINE Negative (NEGATIVE); PH,URINE 6.5 (5.0-8.0); PROTEIN,URINE Trace mg/dL (NEGATIVE)
[2021-05-28 14:53] LABS: BACTERIA,URINE Rare /HPF (None Seen); RBC,URINE 0-1 /HPF (0-1); SQUAMOUS EPITHELIAL CELL,UR Few /HPF (0-2); WBC,URINE 0-1 /HPF (0-1)
[2021-05-28 15:30] VITALS: BP 142/79
== END 2021-05-28 15:31 | disposition home or self-care (01) ==
LOC: EDH 12:22
DX: I11.0 Hypertensive heart disease with heart failure (principal); I50.9 Heart failure, unspecified; D64.9 Anemia, unspecified; R09.89 Other specified symptoms and signs involving the circulatory and respiratory systems; R51.9 Headache, unspecified; E11.9 Type 2 diabetes mellitus without complications; I25.10 Atherosclerotic heart disease of native coronary artery without angina pectoris; Z90.49 Acquired absence of other specified parts of digestive tract; Z88.6 Allergy status to analgesic agent; Z79.899 Other long term (current) drug therapy; Z88.8 Allergy status to other drugs, medicaments and biological substances; Z88.2 Allergy status to sulfonamides
CPT/HCPCS: 36415; 70450; 71045; 81001; 82550; 82948; 83880; 84484; 85025; 93005

== ENCOUNTER 2021-07-11 22:23 | Emergency (ER) | payer MEDICARE ==
[~2021-07-11] VITALS: Ht 167.6 cm; Wt 97.5 kg
[2021-07-11] MEDS ORDERED: NITROGLYCERIN 0.4 MG SL TAB SL PRN (23:00)
[2021-07-11] MEDS ORDERED: CEFTRIAXONE 1G VIAL IVP ONE (23:00)
[2021-07-11] MEDS ORDERED: DEXAMETHASONE SOD PHOSPHATE 4 MG/ML 1ML VIAL IVP SCH (23:00)
[2021-07-11 23:05] LABS: BASOPHILS % (AUTO) 0.9 % (0.0-5.0); HEMATOCRIT 35.5 % (42-54); LYMPHOCYTES % (AUTO) 10.3 % (21.0-51.0); MEAN CORPUSCULAR HEMOGLOBIN 23.3 pg (27.0-33.0); MEAN CORPUSCULAR HGB CONC 28.7 g/dL (32.0-36.0); MEAN CORPUSCULAR VOLUME 81.2 fL (79-99); MONOCYTES % (AUTO) 10.7 % (3.0-13.0); NEUTROPHILS % (AUTO) 75.6 % (40.0-77.0); PLATELET COUNT (AUTO) 302 K/uL (130-400); RED BLOOD CELL COUNT(AUTO) 4.37 MIL/uL (4.50-6.20); RED CELL DISTRIBUTION WIDTH 20.2 % (11.0-15.5); WHITE BLOOD COUNT (AUTO) 12.7 K/uL (4.8-10.8)
[2021-07-11 23:14] LABS: APPEARANCE,URINE Clear (CLEAR); BILIRUBIN,URINE Negative (NEGATIVE); COLOR,URINE Yellow (YELLOW); GLUCOSE, URINE (UA) Negative (NEGATIVE); KETONES,URINE Negative (NEGATIVE); LEUKOCYTE ESTERASE ,URINE Trace (NEGATIVE); NITRATE,URINE Negative (NEGATIVE); OCCULT BLOOD,URINE Negative (NEGATIVE); PH,URINE 6.5 (5.0-8.0); PROTEIN,URINE Negative (NEGATIVE)
[2021-07-11 23:15] LABS: CREATININE 0.8 mg/dL (0.5-1.5); POTASSIUM 4.4 mmol/L (3.5-5.1)
[2021-07-11 23:17] LABS: INR 1.07 (0.85-1.15); PROTHROMBIN TIME 11.6 SEC (9.6-11.6)
[2021-07-11 23:19] LABS: BILIRUBIN,TOTAL 0.5 mg/dL (0.2-1.0); TOTAL PROTEIN, SERUM 8.1 g/dL (6.0-8.3)
[2021-07-11 23:22] LABS: AMPHET/METH SCREEN,URINE NEGATIVE (NEGATIVE); BARBITURATE SCREEN, URINE NEGATIVE (NEGATIVE); BENZODIAZEPINES SCREEN,URINE NEGATIVE (NEGATIVE); CANNABINOID SCREEN,URINE NEGATIVE (NEGATIVE); COCAINE SCREEN,URINE NEGATIVE (NEGATIVE); OPIATE SCREEN,URINE POSITIVE (NEGATIVE); PHENCYCLIDINE SCREEN,URINE NEGATIVE (NEGATIVE)
[2021-07-11 23:40] LABS: B-TYPE NATRIURETIC PEPTIDE 282 pg/mL (0-100)
[2021-07-11 23:43] LABS: BACTERIA,URINE Rare /HPF (None Seen); RBC,URINE 0-1 /HPF (0-1); SQUAMOUS EPITHELIAL CELL,UR 0-2 /HPF (0-2)
[2021-07-12] VITALS: BP 149/77
[2021-07-12 01:49] VITALS: BP 146/68
[2021-07-12 04:35] VITALS: BP 150/77
[2021-07-12] MEDS ORDERED: METH4TAB3 PO (05:11)
[2021-07-12 05:36] VITALS: BP 147/82
== END 2021-07-12 05:59 | disposition home or self-care (01) ==
LOC: EDH 22:23
DX: M94.0 Chondrocostal junction syndrome [Tietze] (principal); D86.0 Sarcoidosis of lung; Z20.822 Contact with and (suspected) exposure to COVID-19; I25.10 Atherosclerotic heart disease of native coronary artery without angina pectoris; Z79.01 Long term (current) use of anticoagulants; Z79.51 Long term (current) use of inhaled steroids; Z79.52 Long term (current) use of systemic steroids; Z79.84 Long term (current) use of oral hypoglycemic drugs; Z79.899 Other long term (current) drug therapy; Z88.2 Allergy status to sulfonamides; Z88.1 Allergy status to other antibiotic agents; Z88.5 Allergy status to narcotic agent; Z88.8 Allergy status to other drugs, medicaments and biological substances; Z90.49 Acquired absence of other specified parts of digestive tract; Z95.0 Presence of cardiac pacemaker; Z98.84 Bariatric surgery status
CPT/HCPCS: 36415; 71045; 71250; 80053; 80305; 81001; 83880; 84484; 85025; 85610; 87635; 93005; 96374; 96375; 99285; C9803; J0696; J1100

== ENCOUNTER 2021-07-31 21:05 | Emergency (ER) | payer MEDICARE ==
[~2021-07-31] VITALS: Ht 167.6 cm; Wt 97.5 kg
[~2021-07-31 21:05] MED LIST changes: +METH4TAB3 PO
[2021-07-31] MEDS ORDERED: ONDANSETRON 4MG INJ IVP ONE (21:30)
[2021-07-31] MEDS ORDERED: 0.9%NACL 1000ML 1,000 ML IV ONE (21:30)
[2021-07-31] MEDS ORDERED: MORPHINE 4 MG SYG IV ONE (21:30)
[2021-07-31 21:52] VITALS: BP 139/83
[2021-07-31 21:57] LABS: BASOPHILS % (AUTO) 0.3 % (0.0-5.0); EOSINOPHILS % (AUTO) 0.1 % (0.0-8.0); HEMATOCRIT 30.6 % (42-54); LYMPHOCYTES % (AUTO) 4.4 % (21.0-51.0); MEAN CORPUSCULAR HEMOGLOBIN 23.2 pg (27.0-33.0); MEAN CORPUSCULAR HGB CONC 28.8 g/dL (32.0-36.0); MEAN CORPUSCULAR VOLUME 80.7 fL (79-99); MONOCYTES % (AUTO) 7.8 % (3.0-13.0); NEUTROPHILS % (AUTO) 86.7 % (40.0-77.0); NUCLEATED RED BLOOD CELLS 0.3 % (0.0-0.19); PLATELET COUNT (AUTO) 246 K/uL (130-400); RED BLOOD CELL COUNT(AUTO) 3.79 MIL/uL (4.50-6.20); RED CELL DISTRIBUTION WIDTH 21.2 % (11.0-15.5); WHITE BLOOD COUNT (AUTO) 11.1 K/uL (4.8-10.8)
[2021-07-31 22:00] LABS: APPEARANCE,URINE Clear (CLEAR); BILIRUBIN,URINE Negative (NEGATIVE); COLOR,URINE Yellow (YELLOW); GLUCOSE, URINE (UA) Negative (NEGATIVE); KETONES,URINE Negative (NEGATIVE); LEUKOCYTE ESTERASE ,URINE Trace (NEGATIVE); NITRATE,URINE Negative (NEGATIVE); OCCULT BLOOD,URINE Negative (NEGATIVE); PH,URINE 6.5 (5.0-8.0); PROTEIN,URINE Negative (NEGATIVE); UROBILINOGEN,URINE 0.2 mg/dL (0.2-1.0)
[2021-07-31] MEDS ORDERED: PHARMACY COMMUNICATION MISC SCH (22:00)
[2021-07-31 22:08] LABS: BACTERIA,URINE None Seen /HPF (None Seen); CREATININE 1.2 mg/dL (0.5-1.5); MUCUS,URINE Rare LPF (None Seen); POTASSIUM 4.3 mmol/L (3.5-5.1); RBC,URINE 0-1 /HPF (0-1); SQUAMOUS EPITHELIAL CELL,UR Rare /HPF (0-2); WBC,URINE 0-1 /HPF (0-1)
[2021-07-31 22:12] LABS: ALBUMIN 3.7 g/dL (3.5-5.0); BILIRUBIN,TOTAL 0.5 mg/dL (0.2-1.0)
[2021-07-31] MEDS ORDERED: DICY20TA2 PO (23:11)
== END 2021-07-31 23:36 | disposition home or self-care (01) ==
LOC: EDH 21:05
DX: E87.1 Hypo-osmolality and hyponatremia (principal); R10.9 Unspecified abdominal pain; D64.9 Anemia, unspecified; I10 Essential (primary) hypertension; E66.9 Obesity, unspecified; E86.0 Dehydration; Z79.01 Long term (current) use of anticoagulants; Z79.51 Long term (current) use of inhaled steroids; Z79.52 Long term (current) use of systemic steroids; Z79.84 Long term (current) use of oral hypoglycemic drugs; Z79.899 Other long term (current) drug therapy; Z87.442 Personal history of urinary calculi; Z88.1 Allergy status to other antibiotic agents; Z88.2 Allergy status to sulfonamides; Z88.5 Allergy status to narcotic agent; Z88.8 Allergy status to other drugs, medicaments and biological substances; Z90.49 Acquired absence of other specified parts of digestive tract; Z98.84 Bariatric surgery status; Z68.34 Body mass index [BMI] 34.0-34.9, adult
CPT/HCPCS: 36415; 74176; 80053; 81001; 85025; 86140; 96361; 96374; 99284; J2270; J7030

== ENCOUNTER 2022-01-25 11:57 | Emergency (ER) | payer MEDICARE ==
[~2022-01-25] VITALS: Ht 167.6 cm; Wt 97.5 kg
[~2022-01-25 11:57] MED LIST changes: +DICY20TA2 PO; -LEVO500T89 PO; +LEVO500T90 PO; +MONT-39 PO; -MONT10TA32 PO; +TEST100V11 IM; -TEST100V5 IM
[2022-01-25 12:03] VITALS: BP 142/65
[2022-01-25 12:40] LABS: APPEARANCE,URINE Clear (CLEAR); BILIRUBIN,URINE Negative (NEGATIVE); COLOR,URINE Yellow (YELLOW); GLUCOSE, URINE (UA) Negative (NEGATIVE); KETONES,URINE Negative (NEGATIVE); LEUKOCYTE ESTERASE ,URINE Negative (NEGATIVE); NITRATE,URINE Negative (NEGATIVE); OCCULT BLOOD,URINE Negative (NEGATIVE); PH,URINE 5.5 (5.0-8.0); PROTEIN,URINE Negative (NEGATIVE)
[2022-01-25] MEDS ORDERED: METOCLOPRAMIDE 10 MG/2 ML VIAL IVP ONE (13:00)
[2022-01-25] MEDS ORDERED: 0.9% NACL 500ML IV.SOLN 500 ML IV ONE (13:00)
[2022-01-25] MEDS ORDERED: MORPHINE 4 MG SYG IVP ONE (13:00)
[2022-01-25] MEDS ORDERED: DiphenhydrAMINE HCL 50 MG/ML VIAL IV ONE (13:00)
[2022-01-25 13:22] LABS: EOSINOPHILS % (AUTO) 9.1 % (0.0-8.0); HEMATOCRIT 30.7 % (42-54); LYMPHOCYTES % (AUTO) 11.2 % (21.0-51.0); MEAN CORPUSCULAR HEMOGLOBIN 19.4 pg (27.0-33.0); MEAN CORPUSCULAR HGB CONC 26.7 g/dL (32.0-36.0); MEAN CORPUSCULAR VOLUME 72.6 fL (79-99); MONOCYTES % (AUTO) 14.4 % (3.0-13.0); NEUTROPHILS % (AUTO) 62.9 % (40.0-77.0); PLATELET COUNT (AUTO) 284 K/uL (130-400); RED BLOOD CELL COUNT(AUTO) 4.23 MIL/uL (4.50-6.20); RED CELL DISTRIBUTION WIDTH 19.4 % (11.0-15.5); WHITE BLOOD COUNT (AUTO) 7.1 K/uL (4.8-10.8)
[2022-01-25 13:43] LABS: CREATININE 0.7 mg/dL (0.5-1.5); POTASSIUM 3.6 mmol/L (3.5-5.1)
[2022-01-25 13:47] LABS: ALBUMIN 3.1 g/dL (3.5-5.0); BILIRUBIN,TOTAL 0.3 mg/dL (0.2-1.0); TOTAL PROTEIN, SERUM 6.6 g/dL (6.0-8.3)
[2022-01-25 14:18] LABS: INR 1.06 (0.85-1.15); PARTIAL THROMBOPLASTIN TIME 21.6 SEC (26.3-35.5)
[2022-01-25] MEDS ORDERED: IOHEXOL-350 75 ML VIAL IV ONE (14:34)
[2022-01-25] MEDS ORDERED: CLIN-141 PO (15:59)
== END 2022-01-25 16:28 | disposition home or self-care (01) ==
LOC: EDH 11:57
DX: I82.402 Acute embolism and thrombosis of unspecified deep veins of left lower extremity (principal); E86.0 Dehydration; L03.311 Cellulitis of abdominal wall; Z88.6 Allergy status to analgesic agent; Z88.8 Allergy status to other drugs, medicaments and biological substances; Z88.2 Allergy status to sulfonamides; Z88.1 Allergy status to other antibiotic agents; Z79.899 Other long term (current) drug therapy; Z79.84 Long term (current) use of oral hypoglycemic drugs; Z90.49 Acquired absence of other specified parts of digestive tract; Z98.890 Other specified postprocedural states
CPT/HCPCS: 36415; 71045; 74177; 80053; 81003; 84484; 85025; 85610; 85730; 93005; 93970; 96361; 96374; 96375; 99285; J1200; J2270; J2765; J7040; Q9967

== ENCOUNTER 2022-02-03 05:09 | Emergency (ER) | payer MEDICARE ==
[~2022-02-03] VITALS: Ht 167.6 cm; Wt 95.7 kg
[~2022-02-03 05:09] MED LIST changes: +CLIN-141 PO
[2022-02-03 05:42] LABS: BASOPHILS % (AUTO) 1.5 % (0.0-5.0); EOSINOPHILS % (AUTO) 2.2 % (0.0-8.0); HEMATOCRIT 30.1 % (42-54); LYMPHOCYTES % (AUTO) 14.1 % (21.0-51.0); MEAN CORPUSCULAR HEMOGLOBIN 19.6 pg (27.0-33.0); MEAN CORPUSCULAR HGB CONC 28.2 g/dL (32.0-36.0); MEAN CORPUSCULAR VOLUME 69.4 fL (79-99); MONOCYTES % (AUTO) 10.6 % (3.0-13.0); NEUTROPHILS % (AUTO) 71.1 % (40.0-77.0); NUCLEATED RED BLOOD CELLS 0.3 % (0.0-0.19); PLATELET COUNT (AUTO) 490 K/uL (130-400); RED BLOOD CELL COUNT(AUTO) 4.34 MIL/uL (4.50-6.20); RED CELL DISTRIBUTION WIDTH 19.4 % (11.0-15.5)
[2022-02-03 05:55] LABS: INR 1.05 (0.85-1.15); PROTHROMBIN TIME 11.4 SEC (9.6-11.6)
[2022-02-03 05:56] LABS: CREATININE 0.9 mg/dL (0.5-1.5); POTASSIUM 3.5 mmol/L (3.5-5.1)
[2022-02-03 05:57] LABS: PARTIAL THROMBOPLASTIN TIME 22.2 SEC (26.3-35.5)
[2022-02-03 06:02] LABS: ALBUMIN 3.2 g/dL (3.5-5.0); BILIRUBIN,TOTAL 0.4 mg/dL (0.2-1.0); MAGNESIUM 1.7 mg/dL (1.80-2.40); TOTAL PROTEIN, SERUM 6.4 g/dL (6.0-8.3)
[2022-02-03] MEDS ORDERED: MAGNESIUM OXIDE 400 MG TABLET PO ONE (06:29)
[2022-02-03] MEDS ORDERED: MAGNESIUM OXIDE 400 MG TABLET PO SCH (06:30)
[2022-02-03] MEDS ORDERED: ACETAMINOPHEN WITH CODEINE 1 TAB TAB PO ONE (06:30)
[2022-02-03 06:33] LABS: B-TYPE NATRIURETIC PEPTIDE 191 pg/mL (0-100)
[2022-02-03 06:44] LABS: APPEARANCE,URINE CLEAR (CLEAR); BILIRUBIN,URINE NEGATIVE (NEGATIVE); COLOR,URINE YELLOW (YELLOW); GLUCOSE, URINE (UA) NEGATIVE (NEGATIVE); KETONES,URINE NEGATIVE (NEGATIVE); LEUKOCYTE ESTERASE ,URINE TRACE (NEGATIVE); NITRATE,URINE NEGATIVE (NEGATIVE); OCCULT BLOOD,URINE NEGATIVE (NEGATIVE); PH,URINE 6.5 (5.0-8.0); PROTEIN,URINE NEGATIVE (NEGATIVE); UROBILINOGEN,URINE 0.2 mg/dL (0.2-1.0)
[2022-02-03] MEDS ORDERED: IOHEXOL-350 75 ML VIAL IV ONE (06:58)
[2022-02-03 07:04] LABS: BACTERIA,URINE Rare /HPF (None Seen); RBC,URINE 0-1 /HPF (0-1); SQUAMOUS EPITHELIAL CELL,UR Rare /HPF (0-2); WBC,URINE 0-1 /HPF (0-1)
[2022-02-03 07:05] LABS: CALCIUM OXALATE CRYSTALS,UR Moderate /LPF (None Seen)
[2022-02-03] MEDS ORDERED: MORPHINE 4 MG SYG ONE (08:07)
[2022-02-03] MEDS ORDERED: MORPHINE 4 MG SYG IVP ONE (08:30)
[2022-02-03 09:14] VITALS: BP 144/81
== END 2022-02-03 09:16 | disposition home or self-care (01) ==
LOC: EDH 05:09
DX: D86.0 Sarcoidosis of lung (principal); I25.10 Atherosclerotic heart disease of native coronary artery without angina pectoris; Z88.6 Allergy status to analgesic agent; Z88.8 Allergy status to other drugs, medicaments and biological substances; Z88.1 Allergy status to other antibiotic agents; Z79.899 Other long term (current) drug therapy; Z79.84 Long term (current) use of oral hypoglycemic drugs; Z79.01 Long term (current) use of anticoagulants; Z98.890 Other specified postprocedural states
CPT/HCPCS: 36415; 71045; 71275; 80053; 81001; 82550; 83735; 83880; 84484; 85025; 85378; 85610; 85730; 93005 ×2; 93971; 96374; 99285; J2270; Q9967

== ENCOUNTER 2022-02-27 06:02 | Emergency (ER) | payer MEDICARE ==
[~2022-02-27] VITALS: Ht 167.6 cm; Wt 95.3 kg
[2022-02-27 06:17] LABS: BASOPHILS % (AUTO) 1.5 % (0.0-5.0); EOSINOPHILS % (AUTO) 4.2 % (0.0-8.0); HEMATOCRIT 29.7 % (42-54); LYMPHOCYTES % (AUTO) 20.8 % (21.0-51.0); MEAN CORPUSCULAR HGB CONC 28.3 g/dL (32.0-36.0); MEAN CORPUSCULAR VOLUME 70.7 fL (79-99); MONOCYTES % (AUTO) 9.6 % (3.0-13.0); NEUTROPHILS % (AUTO) 63.2 % (40.0-77.0); PLATELET COUNT (AUTO) 281 K/uL (130-400); RED CELL DISTRIBUTION WIDTH 19.7 % (11.0-15.5); WHITE BLOOD COUNT (AUTO) 10.4 K/uL (4.8-10.8)
[2022-02-27 06:39] LABS: ALBUMIN 3.6 g/dL (3.5-5.0); BILIRUBIN,TOTAL 0.5 mg/dL (0.2-1.0); CREATININE 0.8 mg/dL (0.5-1.5); POTASSIUM 3.2 mmol/L (3.5-5.1); TOTAL PROTEIN, SERUM 6.9 g/dL (6.0-8.3)
[2022-02-27] MEDS ORDERED: METOCLOPRAMIDE 10 MG/2 ML VIAL IVP ONE (07:00)
[2022-02-27] MEDS ORDERED: 0.9% NACL 500ML IV.SOLN 500 ML IV ONE (07:00)
[2022-02-27 07:19] VITALS: BP 133/68
[2022-02-27] MEDS ORDERED: HYDROCODONE/ACETAMINOPHEN 5/325 MG TAB PO ONE (08:00)
== END 2022-02-27 08:25 | disposition home or self-care (01) ==
LOC: EDSEX 06:02 → EDH 06:02
DX: M25.512 Pain in left shoulder (principal); D86.9 Sarcoidosis, unspecified; I45.2 Bifascicular block; I50.9 Heart failure, unspecified; Z88.6 Allergy status to analgesic agent; Z88.8 Allergy status to other drugs, medicaments and biological substances; Z88.2 Allergy status to sulfonamides; Z88.1 Allergy status to other antibiotic agents; Z79.899 Other long term (current) drug therapy; Z79.84 Long term (current) use of oral hypoglycemic drugs; Z98.890 Other specified postprocedural states; W19.XXXA Unspecified fall, initial encounter; Y93.89 Activity, other specified; Y92.89 Other specified places as the place of occurrence of the external cause; Y99.8 Other external cause status
CPT/HCPCS: 36415; 70450; 71045; 72125; 73030; 80053; 84484; 85025; 93005; 96361; 96374; 99285; J2765; J7040

== ENCOUNTER 2022-04-16 12:46 | Inpatient (IN) | payer MEDICARE ==
[~2022-04-16] VITALS: Ht 167.6 cm; Wt 94.3 kg
[~2022-04-16 12:46] MED LIST changes: -ADV500 IH; -APIX5TAB PO; -CLIN-141 PO; -CLON2TAB11 PO; -DICY20TA2 PO; -ERGO500093 PO; -FENO54TA6 PO; -GUAI600T50 PO; -LEVO500T90 PO; -METF-444 PO; -METH4TAB3 PO; -METO5TAB2 PO; -MONT-39 PO; -PRAS25CA9 PO; -SEMA1PEN3 SQ; -SUVO10TA PO; -TEST100V11 IM; -TRAZ-187 PO; +TRAZ150T79 PO; -VITAMIN B12 IM
[2022-04-16] MEDS ORDERED: CEFTRIAXONE 1G VIAL IVP ONE (13:00)
[2022-04-16 13:17] LABS: BASOPHILS % (AUTO) 0.4 % (0.0-5.0); EOSINOPHILS % (AUTO) 0.2 % (0.0-8.0); HEMATOCRIT 37.8 % (42-54); LYMPHOCYTES % (AUTO) 7.4 % (21.0-51.0); MEAN CORPUSCULAR HEMOGLOBIN 21.3 pg (27.0-33.0); MEAN CORPUSCULAR HGB CONC 27.5 g/dL (32.0-36.0); MEAN CORPUSCULAR VOLUME 77.5 fL (79-99); MONOCYTES % (AUTO) 7.4 % (3.0-13.0); NEUTROPHILS % (AUTO) 83.7 % (40.0-77.0); NUCLEATED RED BLOOD CELLS 0.2 % (0.0-0.19); PLATELET COUNT (AUTO) 366 K/uL (130-400); RED BLOOD CELL COUNT(AUTO) 4.88 MIL/uL (4.50-6.20); RED CELL DISTRIBUTION WIDTH 24.7 % (11.0-15.5); WHITE BLOOD COUNT (AUTO) 19.9 K/uL (4.8-10.8)
[2022-04-16 13:58] LABS: ALBUMIN 2.9 g/dL (3.5-5.0); BILIRUBIN,TOTAL 0.4 mg/dL (0.2-1.0); CREATININE 1.1 mg/dL (0.5-1.5); POTASSIUM 3.1 mmol/L (3.5-5.1); TOTAL PROTEIN, SERUM 6.7 g/dL (6.0-8.3)
[2022-04-16] MEDS ORDERED: ACETAMINOPHEN 500 MG TABLET PO ONE (14:00)
[2022-04-16] MEDS ORDERED: DEXAMETHASONE SOD PHOSPHATE 4 MG/ML 1ML VIAL IVP ONE (14:00)
[2022-04-16] MEDS ORDERED: MORPHINE 2 MG SYG IVP ONE (14:00)
[2022-04-16 14:25] LABS: INR 0.99 (0.85-1.15); PARTIAL THROMBOPLASTIN TIME 21.7 SEC (26.3-35.5); PROTHROMBIN TIME 10.8 SEC (9.6-11.6)
[2022-04-16 14:53] LABS: APPEARANCE,URINE CLEAR (CLEAR); BILIRUBIN,URINE NEGATIVE (NEGATIVE); COLOR,URINE YELLOW (YELLOW); GLUCOSE, URINE (UA) NEGATIVE (NEGATIVE); KETONES,URINE NEGATIVE (NEGATIVE); LEUKOCYTE ESTERASE ,URINE NEGATIVE (NEGATIVE); NITRATE,URINE NEGATIVE (NEGATIVE); OCCULT BLOOD,URINE NEGATIVE (NEGATIVE); PROTEIN,URINE NEGATIVE (NEGATIVE); UROBILINOGEN,URINE 0.2 mg/dL (0.2-1.0)
[2022-04-16] MEDS ORDERED: KCL 20 MEQ ERTAB PO PRN (15:30)
[2022-04-16] MEDS ORDERED: POTASSIUM CHLORIDE 20MEQ/100ML 100 ML IV PRN (15:30)
[2022-04-16] MEDS ORDERED: LIDOCAINE HCL-MPF 1% 2ML VIAL IV PRN (15:30)
[2022-04-16 15:57] LABS: ABG BASE EXCESS -3.9 mmol/L (-2.0-3.0); ABG HCO3 20.2 mmol/L (21.0-28.0); ABG OXYGEN SATURATION 97.9 % (95.0-99.0); ABG PCO2 34 mmHg (35-48)
[2022-04-16] MEDS: 0.9%NACL 1000ML 1,000 ML IV SCH (16:52)
[2022-04-16] MEDS: CEFEPIME HCL 2 GM VIAL IVP SCH ×2 (16:56→23:20)
[2022-04-16] MEDS: POTASSIUM CHLORIDE 10% ELIXIR 20 MEQ/15 ML UDCUP PO PRN ×3 (17:13→20:33)
[2022-04-16] MEDS ORDERED: ONDANSETRON 4MG INJ IV PRN (17:30)
[2022-04-16] MEDS ORDERED: ZOLPIDEM TARTRATE 5 MG TAB PO PRN (17:30)
[2022-04-16] MEDS ORDERED: ACETAMINOPHEN 325 MG TAB PO PRN ×2 (17:30)
[2022-04-16] MEDS ORDERED: LACTULOSE 20 GM/30 ML UDCUP PO PRN (17:30)
[2022-04-16] MEDS ORDERED: DiphenhydrAMINE HCL 50 MG/ML VIAL IV PRN (17:30)
[2022-04-16] MEDS ORDERED: NOREPINEPHRIN 4MG/NS 250ML 250 ML IV ONE (17:56)
[2022-04-16] MEDS ORDERED: NOREPINEPHRIN 4MG/NS 250ML 250 ML IV SCH (18:30)
[2022-04-16] MEDS: FAMOTIDINE 20MG VIAL IV SCH (20:31)
[2022-04-16] MEDS: TRAZODONE HCL 50 MG TAB PO SCH (20:31)
[2022-04-16] MEDS: ROPINIROLE HCL 1 MG TABLET PO SCH (20:32)
[2022-04-16] MEDS: CLONAZEPAM 1MG TAB PO SCH (20:32)
[2022-04-16 22:00] VITALS: BP 112/53
[2022-04-16 23:00] VITALS: BP 113/60
[2022-04-17] VITALS (20 sets, daily range): BP systolic 82–134; BP diastolic 26–74
[2022-04-17] MEDS: MORPHINE 2 MG SYG IV PRN ×5 (02:12→21:11)
[2022-04-17] MEDS: 0.9%NACL 1000ML 1,000 ML IV SCH ×3 (03:14→21:07)
[2022-04-17] MEDS: ACETAMINOPHEN WITH CODEINE 1 TAB TAB PO PRN ×3 (03:15→18:39)
[2022-04-17] MEDS ORDERED: METO-408 PO (04:44)
[2022-04-17] MEDS ORDERED: SERT-440 PO (04:44)
[2022-04-17] MEDS ORDERED: TRAZ-187 PO (04:44)
[2022-04-17] MEDS ORDERED: ACET1TAB97 PO (04:44)
[2022-04-17] MEDS ORDERED: PRED20TA3 PO (04:44)
[2022-04-17] MEDS ORDERED: CLON1TAB12 PO (04:44)
[2022-04-17] MEDS ORDERED: ROPI4TAB22 PO (04:44)
[2022-04-17] MEDS ORDERED: MIDO2.5T PO (04:44)
[2022-04-17] MEDS ORDERED: LIPA1CAP18 PO (04:44)
[2022-04-17] MEDS: CEFEPIME HCL 2 GM VIAL IVP SCH (06:25)
[2022-04-17] MEDS ORDERED: DEXAMETHASONE SOD PHOSPHATE 4 MG/ML 1ML VIAL IV SCH (07:30)
[2022-04-17] MEDS ORDERED: PHARMACY COMMUNICATION**REMDESIVIR MISC SCH (07:30)
[2022-04-17 08:37] LABS: MEAN CORPUSCULAR HEMOGLOBIN 21.5 pg (27.0-33.0); MEAN CORPUSCULAR HGB CONC 26.8 g/dL (32.0-36.0); MEAN CORPUSCULAR VOLUME 80.4 fL (79-99); PLATELET COUNT (AUTO) 353 K/uL (130-400); RED BLOOD CELL COUNT(AUTO) 4.23 MIL/uL (4.50-6.20); RED CELL DISTRIBUTION WIDTH 24.3 % (11.0-15.5); WHITE BLOOD COUNT (AUTO) 18.8 K/uL (4.8-10.8)
[2022-04-17 09:03] LABS: ALBUMIN 2.4 g/dL (3.5-5.0); BILIRUBIN,TOTAL 0.3 mg/dL (0.2-1.0); POTASSIUM 4.9 mmol/L (3.5-5.1); TOTAL PROTEIN, SERUM 6.2 g/dL (6.0-8.3)
[2022-04-17] MEDS: SERTRALINE HCL 50 MG TABLET PO SCH (09:08)
[2022-04-17] MEDS: FAMOTIDINE 20MG VIAL IV SCH ×2 (09:08→21:07)
[2022-04-17] MEDS: BARICITINIB (EUA) 2 MG TABLET PO SCH (09:08)
[2022-04-17] MEDS: ROPINIROLE HCL 1 MG TABLET PO SCH ×3 (09:09→21:06)
[2022-04-17] MEDS: ENOXAPARIN SODIUM 40 MG/0.4 ML SYRINGE SQ SCH (09:09)
[2022-04-17 09:43] LABS: CRP QUANTITATIVE 358.4 mg/L (0.00-9.0)
[2022-04-17] MEDS: CLONAZEPAM 1MG TAB PO SCH ×3 (09:49→21:06)
[2022-04-17] MEDS ORDERED: CEFEPIME HCL 1 GM VIAL IVP SCH (10:00)
[2022-04-17 10:48] LABS: BAND NEUTROPHILS % (MANUAL) 9 % (0-2); LYMPHOCYTES % (MANUAL) 3 % (22-44); MAN.DIFF COMMENT-IMPRESSION MANUAL DIFFERENTIAL; MONOCYTES % (MANUAL) 2 % (2-9); PLATELET MORPHOLOGY COMMENT ADEQUATE; SEGMENTED NEUTROPHILS % 86 % (40-70)
[2022-04-17] MEDS ORDERED: ALBUTEROL INHALER 90MCG/INH IH PRN (12:30)
[2022-04-17] MEDS ORDERED: COMPOUND IV REFRIGERATED 1 EACH IVSOLN MISC PRN (12:30)
[2022-04-17] MEDS ORDERED: REMDESIVIR (EUA) 520 200 MG in 0.9% NACL 250ML 250 ML IV SCH (12:30)
[2022-04-17] MEDS: CEFEPIME HCL 1 GM VIAL IVP SCH ×2 (13:31→21:07)
[2022-04-17] MEDS: INSULIN HUMULIN R 100 UNIT/ML 3ML SQ SCH ×2 (16:30→21:10)
[2022-04-17] MEDS: SOLU-MEDROL 125MG VIAL IVP SCH (16:56)
[2022-04-17] MEDS: DOXYCYCLINE 100MG+NS 250ML IV SCH (18:07)
[2022-04-17] MEDS ORDERED: IOHEXOL 350 MG/ML 100ML INFUS..BTL IV ONE (18:07)
[2022-04-17] MEDS: TRAZODONE HCL 50 MG TAB PO SCH (21:07)
[2022-04-18] VITALS: BP 114/79
[2022-04-18] MEDS: SOLU-MEDROL 125MG VIAL IVP SCH ×3 (00:04→17:16)
[2022-04-18] MEDS: ACETAMINOPHEN WITH CODEINE 1 TAB TAB PO PRN ×3 (01:31→18:29)
[2022-04-18 03:51] LABS: HEMATOCRIT 31.6 % (42-54); LYMPHOCYTES % (AUTO) 2.7 % (21.0-51.0); MEAN CORPUSCULAR HEMOGLOBIN 21.1 pg (27.0-33.0); MEAN CORPUSCULAR HGB CONC 27.2 g/dL (32.0-36.0); MEAN CORPUSCULAR VOLUME 77.5 fL (79-99); MONOCYTES % (AUTO) 1.4 % (3.0-13.0); NEUTROPHILS % (AUTO) 94.8 % (40.0-77.0); PLATELET COUNT (AUTO) 322 K/uL (130-400); RED BLOOD CELL COUNT(AUTO) 4.08 MIL/uL (4.50-6.20); RED CELL DISTRIBUTION WIDTH 23.9 % (11.0-15.5); WHITE BLOOD COUNT (AUTO) 10.3 K/uL (4.8-10.8)
[2022-04-18 04:00] VITALS: BP 111/65
[2022-04-18 04:11] LABS: ALBUMIN 2.3 g/dL (3.5-5.0); BILIRUBIN,TOTAL 0.2 mg/dL (0.2-1.0); CREATININE 0.7 mg/dL (0.5-1.5); POTASSIUM 4.6 mmol/L (3.5-5.1); TOTAL PROTEIN, SERUM 6.3 g/dL (6.0-8.3)
[2022-04-18 04:39] LABS: CRP QUANTITATIVE 307.8 mg/L (0.00-9.0)
[2022-04-18] MEDS: REMDESIVIR LABS MISC SCH (06:22)
[2022-04-18] MEDS: DOXYCYCLINE 100MG+NS 250ML IV SCH (06:22)
[2022-04-18] MEDS: CEFEPIME HCL 1 GM VIAL IVP SCH ×2 (06:22→14:09)
[2022-04-18] MEDS: INSULIN HUMULIN R 100 UNIT/ML 3ML SQ SCH ×4 (06:23→20:24)
[2022-04-18 06:55] LABS: ABG BASE EXCESS 0.3 mmol/L (-2.0-3.0); ABG HCO3 24.9 mmol/L (21.0-28.0); ABG OXYGEN SATURATION 95.5 % (95.0-99.0); ABG PCO2 40 mmHg (35-48)
[2022-04-18] MEDS: MORPHINE 2 MG SYG IV PRN ×3 (07:37→20:17)
[2022-04-18 08:00] VITALS: BP 123/80
[2022-04-18] MEDS: ROPINIROLE HCL 1 MG TABLET PO SCH ×3 (09:58→20:16)
[2022-04-18] MEDS: FAMOTIDINE 20MG VIAL IV SCH ×2 (09:58→20:16)
[2022-04-18] MEDS: SERTRALINE HCL 50 MG TABLET PO SCH (09:58)
[2022-04-18] MEDS: ENOXAPARIN SODIUM 40 MG/0.4 ML SYRINGE SQ SCH (09:58)
[2022-04-18] MEDS: 0.9%NACL 1000ML 1,000 ML IV SCH (09:59)
[2022-04-18] MEDS: BARICITINIB (EUA) 2 MG TABLET PO SCH (09:59)
[2022-04-18] MEDS: CLONAZEPAM 1MG TAB PO SCH ×3 (10:11→20:15)
[2022-04-18 12:00] VITALS: BP 112/77
[2022-04-18] MEDS: REMDESIVIR (EUA) 520 100 MG in 0.9% NACL 250ML 250 ML IV SCH (14:36)
[2022-04-18] MEDS: ZOSYN 3.375GM +NS 50ML IV SCH (15:26)
[2022-04-18 16:00] VITALS: BP 140/90
[2022-04-18 20:00] VITALS: BP 147/96
[2022-04-18] MEDS: TRAZODONE HCL 50 MG TAB PO SCH (20:16)
[2022-04-19] VITALS (8 sets, daily range): BP systolic 111–168; BP diastolic 64–103
[2022-04-19] MEDS: SOLU-MEDROL 125MG VIAL IVP SCH ×4 (01:30→23:22)
[2022-04-19] MEDS: ZOSYN 3.375GM +NS 50ML IV SCH ×2 (01:31→14:38)
[2022-04-19] MEDS: ACETAMINOPHEN WITH CODEINE 1 TAB TAB PO PRN ×2 (02:40→13:00)
[2022-04-19] MEDS: GUAIFENESIN-DM 200/20 MG 10 ML PO PRN (02:40)
[2022-04-19 03:43] LABS: HEMATOCRIT 32.1 % (42-54); MEAN CORPUSCULAR HGB CONC 27.1 g/dL (32.0-36.0); MEAN CORPUSCULAR VOLUME 77.5 fL (79-99); MONOCYTES % (AUTO) 2.7 % (3.0-13.0); NEUTROPHILS % (AUTO) 92.6 % (40.0-77.0); PLATELET COUNT (AUTO) 320 K/uL (130-400); RED BLOOD CELL COUNT(AUTO) 4.14 MIL/uL (4.50-6.20); RED CELL DISTRIBUTION WIDTH 23.1 % (11.0-15.5); WHITE BLOOD COUNT (AUTO) 8.7 K/uL (4.8-10.8)
[2022-04-19 03:55] LABS: ALBUMIN 2.4 g/dL (3.5-5.0); BILIRUBIN,TOTAL 0.3 mg/dL (0.2-1.0); CREATININE 0.8 mg/dL (0.5-1.5); POTASSIUM 4.4 mmol/L (3.5-5.1); TOTAL PROTEIN, SERUM 6.3 g/dL (6.0-8.3)
[2022-04-19] MEDS: MORPHINE 2 MG SYG IV PRN ×4 (05:50→23:23)
[2022-04-19] MEDS: REMDESIVIR LABS MISC SCH (05:50)
[2022-04-19] MEDS: INSULIN HUMULIN R 100 UNIT/ML 3ML SQ SCH ×4 (07:22→20:35)
[2022-04-19] MEDS: ENOXAPARIN SODIUM 40 MG/0.4 ML SYRINGE SQ SCH (08:57)
[2022-04-19] MEDS: FAMOTIDINE 20MG VIAL IV SCH ×2 (08:57→20:58)
[2022-04-19] MEDS: BARICITINIB (EUA) 2 MG TABLET PO SCH (08:57)
[2022-04-19] MEDS: ROPINIROLE HCL 1 MG TABLET PO SCH ×3 (08:57→20:57)
[2022-04-19] MEDS: SERTRALINE HCL 50 MG TABLET PO SCH (08:57)
[2022-04-19] MEDS: CLONAZEPAM 1MG TAB PO SCH ×3 (09:42→20:58)
[2022-04-19] MEDS: REMDESIVIR (EUA) 520 100 MG in 0.9% NACL 250ML 250 ML IV SCH (12:38)
[2022-04-19 18:14] LABS: % IRON SATURATION 20.5 % (30-44)
[2022-04-19] MEDS: TRAZODONE HCL 50 MG TAB PO SCH (20:58)
[2022-04-19] MEDS ORDERED: CLONIDINE HCL 0.1 MG TABLET PO PRN (22:00)
[2022-04-20] VITALS (7 sets, daily range): BP systolic 138–152; BP diastolic 79–99
[2022-04-20] MEDS: ZOSYN 3.375GM +NS 50ML IV SCH ×2 (01:29→12:59)
[2022-04-20] MEDS: MORPHINE 2 MG SYG IV PRN ×4 (04:37→20:39)
[2022-04-20 05:00] LABS: HEMATOCRIT 33.7 % (42-54); LYMPHOCYTES % (AUTO) 3.1 % (21.0-51.0); MEAN CORPUSCULAR HEMOGLOBIN 21.3 pg (27.0-33.0); MEAN CORPUSCULAR HGB CONC 27.9 g/dL (32.0-36.0); MEAN CORPUSCULAR VOLUME 76.4 fL (79-99); MONOCYTES % (AUTO) 2.5 % (3.0-13.0); NEUTROPHILS % (AUTO) 93.8 % (40.0-77.0); NUCLEATED RED BLOOD CELLS 0.3 % (0.0-0.19); PLATELET COUNT (AUTO) 329 K/uL (130-400); RED BLOOD CELL COUNT(AUTO) 4.41 MIL/uL (4.50-6.20); RED CELL DISTRIBUTION WIDTH 22.4 % (11.0-15.5); WHITE BLOOD COUNT (AUTO) 6.8 K/uL (4.8-10.8)
[2022-04-20 05:21] LABS: ALBUMIN 2.4 g/dL (3.5-5.0); BILIRUBIN,TOTAL 0.3 mg/dL (0.2-1.0); CREATININE 0.9 mg/dL (0.5-1.5); CRP QUANTITATIVE 62.5 mg/L (0.00-9.0); POTASSIUM 4.3 mmol/L (3.5-5.1); TOTAL PROTEIN, SERUM 6.2 g/dL (6.0-8.3)
[2022-04-20] MEDS: REMDESIVIR LABS MISC SCH (05:40)
[2022-04-20] MEDS: INSULIN HUMULIN R 100 UNIT/ML 3ML SQ SCH ×4 (06:35→20:35)
[2022-04-20 06:36] LABS: ABG BASE EXCESS -0.2 mmol/L (-2.0-3.0); ABG HCO3 24.7 mmol/L (21.0-28.0); ABG OXYGEN SATURATION 98.2 % (95.0-99.0); ABG PCO2 42 mmHg (35-48)
[2022-04-20] MEDS: BARICITINIB (EUA) 2 MG TABLET PO SCH (08:31)
[2022-04-20] MEDS: SERTRALINE HCL 50 MG TABLET PO SCH (08:32)
[2022-04-20] MEDS: FAMOTIDINE 20MG VIAL IV SCH (08:32)
[2022-04-20] MEDS: CLONAZEPAM 1MG TAB PO SCH ×3 (08:32→20:37)
[2022-04-20] MEDS: SOLU-MEDROL 125MG VIAL IVP SCH ×2 (08:32→16:11)
[2022-04-20] MEDS: ENOXAPARIN SODIUM 40 MG/0.4 ML SYRINGE SQ SCH (08:33)
[2022-04-20] MEDS: ROPINIROLE HCL 1 MG TABLET PO SCH ×3 (08:33→20:36)
[2022-04-20] MEDS: ACETAMINOPHEN WITH CODEINE 1 TAB TAB PO PRN ×2 (10:51→16:12)
[2022-04-20] MEDS: REMDESIVIR (EUA) 520 100 MG in 0.9% NACL 250ML 250 ML IV SCH (12:57)
[2022-04-20] MEDS ORDERED: 0.9%NACL 50ML 50 ML IV ONE (12:57)
[2022-04-20] MEDS: GUAIFENESIN-DM 200/20 MG 10 ML PO PRN (16:11)
[2022-04-20] MEDS: FAMOTIDINE 20MG TAB PO SCH (20:35)
[2022-04-20] MEDS: TRAZODONE HCL 50 MG TAB PO SCH (20:36)
[2022-04-20] MEDS: SOLU-MEDROL 40MG VIAL IVP SCH (23:26)
[2022-04-21] MEDS: MORPHINE 2 MG SYG IV PRN ×3 (02:34→14:43)
[2022-04-21] MEDS: ZOSYN 3.375GM +NS 50ML IV SCH ×2 (02:34→13:17)
[2022-04-21 04:00] VITALS: BP 155/96
[2022-04-21 04:37] LABS: ALBUMIN 2.5 g/dL (3.5-5.0); BILIRUBIN,DIRECT 0.1 mg/dL (0.0-0.3); BILIRUBIN,TOTAL 0.2 mg/dL (0.2-1.0); CREATININE 0.9 mg/dL (0.5-1.5); HEMATOCRIT 34.6 % (42-54); MAGNESIUM 1.9 mg/dL (1.80-2.40); MEAN CORPUSCULAR HEMOGLOBIN 21.9 pg (27.0-33.0); MEAN CORPUSCULAR HGB CONC 28.9 g/dL (32.0-36.0); MEAN CORPUSCULAR VOLUME 75.9 fL (79-99); POTASSIUM 4.5 mmol/L (3.5-5.1); RED BLOOD CELL COUNT(AUTO) 4.56 MIL/uL (4.50-6.20); RED CELL DISTRIBUTION WIDTH 22.1 % (11.0-15.5); TOTAL PROTEIN, SERUM 6.3 g/dL (6.0-8.3)
[2022-04-21] MEDS: REMDESIVIR LABS MISC SCH (06:01)
[2022-04-21] MEDS: INSULIN HUMULIN R 100 UNIT/ML 3ML SQ SCH ×4 (06:01→20:54)
[2022-04-21 08:00] VITALS: BP 140/101
[2022-04-21] MEDS: MAGNESIUM 2GM PREMIX 50ML 50 ML IV PRN (08:46)
[2022-04-21] MEDS ORDERED: IRON SUCROSE COMPLEX 100 MG in 0.9%NACL 50ML 50 ML IV SCH (09:00)
[2022-04-21] MEDS: SOLU-MEDROL 40MG VIAL IVP SCH ×3 (09:35→23:37)
[2022-04-21] MEDS: IRON SUCROSE COMPLEX 100 MG/5 ML VIAL IVP SCH (09:35)
[2022-04-21] MEDS: FAMOTIDINE 20MG TAB PO SCH ×2 (09:36→20:52)
[2022-04-21] MEDS: SERTRALINE HCL 50 MG TABLET PO SCH (09:36)
[2022-04-21] MEDS: CLONAZEPAM 1MG TAB PO SCH ×3 (09:36→20:52)
[2022-04-21] MEDS: BARICITINIB (EUA) 2 MG TABLET PO SCH (09:36)
[2022-04-21] MEDS: DRONABINOL 2.5 MG CAP PO SCH (09:36)
[2022-04-21] MEDS: ROPINIROLE HCL 1 MG TABLET PO SCH ×3 (09:36→20:52)
[2022-04-21] MEDS: ENOXAPARIN SODIUM 40 MG/0.4 ML SYRINGE SQ SCH (09:37)
[2022-04-21] MEDS: ACETAMINOPHEN WITH CODEINE 1 TAB TAB PO PRN ×2 (11:15→16:49)
[2022-04-21] MEDS: GUAIFENESIN-DM 200/20 MG 10 ML PO PRN (11:28)
[2022-04-21 12:00] VITALS: BP 159/104
[2022-04-21] MEDS: REMDESIVIR (EUA) 520 100 MG in 0.9% NACL 250ML 250 ML IV SCH (13:17)
[2022-04-21 16:00] VITALS: BP 171/113
[2022-04-21 20:46] VITALS: BP 163/104
[2022-04-21] MEDS: TRAZODONE HCL 50 MG TAB PO SCH (20:52)
[2022-04-21 23:48] VITALS: BP 147/98
[2022-04-22] MEDS: ACETAMINOPHEN WITH CODEINE 1 TAB TAB PO PRN ×4 (00:01→21:30)
[2022-04-22] MEDS: ZOSYN 3.375GM +NS 50ML IV SCH ×2 (02:03→13:47)
[2022-04-22 03:22] LABS: HEMATOCRIT 36.5 % (42-54); MEAN CORPUSCULAR HEMOGLOBIN 21.6 pg (27.0-33.0); MEAN CORPUSCULAR HGB CONC 27.9 g/dL (32.0-36.0); MEAN CORPUSCULAR VOLUME 77.3 fL (79-99); RED BLOOD CELL COUNT(AUTO) 4.72 MIL/uL (4.50-6.20); RED CELL DISTRIBUTION WIDTH 22.1 % (11.0-15.5); WHITE BLOOD COUNT (AUTO) 11.3 K/uL (4.8-10.8)
[2022-04-22 03:34] LABS: MAGNESIUM 2.1 mg/dL (1.80-2.40)
[2022-04-22 04:00] VITALS: BP 173/105
[2022-04-22] MEDS: INSULIN HUMULIN R 100 UNIT/ML 3ML SQ SCH ×4 (07:11→21:49)
[2022-04-22 08:00] VITALS: BP 137/88
[2022-04-22 08:14] LABS: ALBUMIN 2.8 g/dL (3.5-5.0); BILIRUBIN,TOTAL 0.2 mg/dL (0.2-1.0); TOTAL PROTEIN, SERUM 6.5 g/dL (6.0-8.3)
[2022-04-22] MEDS: ENOXAPARIN SODIUM 40 MG/0.4 ML SYRINGE SQ SCH (08:15)
[2022-04-22] MEDS: SERTRALINE HCL 50 MG TABLET PO SCH (08:16)
[2022-04-22] MEDS: FAMOTIDINE 20MG TAB PO SCH ×2 (08:16→21:04)
[2022-04-22] MEDS: CLONAZEPAM 1MG TAB PO SCH ×3 (08:16→21:04)
[2022-04-22] MEDS: ROPINIROLE HCL 1 MG TABLET PO SCH ×3 (08:16→21:03)
[2022-04-22] MEDS: SOLU-MEDROL 40MG VIAL IVP SCH ×3 (08:16→23:53)
[2022-04-22] MEDS: DRONABINOL 2.5 MG CAP PO SCH (08:17)
[2022-04-22] MEDS: IRON SUCROSE COMPLEX 100 MG/5 ML VIAL IVP SCH (08:17)
[2022-04-22] MEDS: BARICITINIB (EUA) 2 MG TABLET PO SCH (08:52)
[2022-04-22] MEDS ORDERED: LIPASE/PROTEASE/AMYLASE 5000/17000/24000 PO PRN (11:30)
[2022-04-22 12:00] VITALS: BP 136/70
[2022-04-22] MEDS: METOPROLOL SUCCINATE 25 MG TAB.SR.24H PO SCH (12:08)
[2022-04-22] MEDS ORDERED: IRON SUCROSE COMPLEX 200 MG in 0.9% NACL 250ML 250 ML IV SCH (13:44)
[2022-04-22] MEDS: GUAIFENESIN-DM 200/20 MG 10 ML PO PRN (15:51)
[2022-04-22 16:00] VITALS: BP 132/91
[2022-04-22] MEDS ORDERED: CYANOCOBALAMIN (VITAMIN B-12) 1,000 MCG TABLET PO SCH (16:00)
[2022-04-22] MEDS ORDERED: CYANOCOBALAMIN (VITAMIN B-12) 1000 MCG/ML 1ML VIAL IM SCH (20:00)
[2022-04-22 20:02] VITALS: BP_SYST 109; BP_SYST 125; BP_DIAS 70; BP_DIAS 79
[2022-04-22] MEDS: TRAZODONE HCL 50 MG TAB PO SCH (21:03)
[2022-04-23 00:09] VITALS: BP 161/101
[2022-04-23] MEDS: ZOSYN 3.375GM +NS 50ML IV SCH ×2 (02:01→13:50)
[2022-04-23] MEDS: ACETAMINOPHEN WITH CODEINE 1 TAB TAB PO PRN ×3 (03:31→16:59)
[2022-04-23 03:34] VITALS: BP 149/99
[2022-04-23 04:09] LABS: BASOPHILS % (AUTO) 0.1 % (0.0-5.0); HEMATOCRIT 36.5 % (42-54); LYMPHOCYTES % (AUTO) 3.7 % (21.0-51.0); MEAN CORPUSCULAR HEMOGLOBIN 21.4 pg (27.0-33.0); MEAN CORPUSCULAR HGB CONC 27.7 g/dL (32.0-36.0); MEAN CORPUSCULAR VOLUME 77.3 fL (79-99); MONOCYTES % (AUTO) 3.7 % (3.0-13.0); NEUTROPHILS % (AUTO) 91.3 % (40.0-77.0); PLATELET COUNT (AUTO) 304 K/uL (130-400); RED BLOOD CELL COUNT(AUTO) 4.72 MIL/uL (4.50-6.20); RED CELL DISTRIBUTION WIDTH 22.3 % (11.0-15.5); WHITE BLOOD COUNT (AUTO) 9.6 K/uL (4.8-10.8)
[2022-04-23] MEDS: MAGNESIUM 2GM PREMIX 50ML 50 ML IV PRN (05:32)
[2022-04-23] MEDS: INSULIN HUMULIN R 100 UNIT/ML 3ML SQ SCH ×3 (06:36→16:16)
[2022-04-23 08:00] VITALS: BP 123/89
[2022-04-23] MEDS ORDERED: IRON SUCROSE COMPLEX 100 MG/5 ML VIAL IVP SCH (09:00)
[2022-04-23] MEDS: ENOXAPARIN SODIUM 40 MG/0.4 ML SYRINGE SQ SCH (09:03)
[2022-04-23] MEDS: SOLU-MEDROL 40MG VIAL IVP SCH ×2 (09:03→16:51)
[2022-04-23] MEDS: BARICITINIB (EUA) 2 MG TABLET PO SCH (09:04)
[2022-04-23] MEDS: ROPINIROLE HCL 1 MG TABLET PO SCH ×2 (09:04→13:50)
[2022-04-23] MEDS: DRONABINOL 2.5 MG CAP PO SCH (09:04)
[2022-04-23] MEDS: FAMOTIDINE 20MG TAB PO SCH (09:04)
[2022-04-23] MEDS: METOPROLOL SUCCINATE 25 MG TAB.SR.24H PO SCH (09:04)
[2022-04-23] MEDS: SERTRALINE HCL 50 MG TABLET PO SCH (09:04)
[2022-04-23] MEDS: CLONAZEPAM 1MG TAB PO SCH ×2 (09:04→13:50)
[2022-04-23 11:46] VITALS: BP 106/55
[2022-04-23 16:01] VITALS: BP 141/91
== END 2022-04-23 17:00 | DRG 871 ==
LOC: EDH 12:46 → EDHIP 15:15 → 2AH 20:44
PROVIDERS: ADMIT Internal Medicine Critical Care Medicine; ATTEND Internal Medicine Critical Care Medicine
PROC: XW033E5 Introduction of Remdesivir Anti-infective into Peripheral Vein, Percutaneous Approach, New Technology Group 5 (ICD-10-PCS; principal; 2022-04-18)
PROC: 5A09357 Assistance with Respiratory Ventilation, Less than 24 Consecutive Hours, Continuous Positive Airway Pressure (ICD-10-PCS; 2022-04-20)
DX: A41.9 Sepsis, unspecified organism (principal); J12.82 Pneumonia due to coronavirus disease 2019; U07.1 COVID-19; J96.21 Acute and chronic respiratory failure with hypoxia; N39.0 Urinary tract infection, site not specified; N17.9 Acute kidney failure, unspecified; E46 Unspecified protein-calorie malnutrition; Z16.12 Extended spectrum beta lactamase (ESBL) resistance; D86.9 Sarcoidosis, unspecified; E11.9 Type 2 diabetes mellitus without complications; E66.9 Obesity, unspecified; F41.9 Anxiety disorder, unspecified; K76.9 Liver disease, unspecified; F31.9 Bipolar disorder, unspecified; K76.0 Fatty (change of) liver, not elsewhere classified; B96.20 Unspecified Escherichia coli [E. coli] as the cause of diseases classified elsewhere; Z68.32 Body mass index [BMI] 32.0-32.9, adult; Z98.84 Bariatric surgery status; Z87.442 Personal history of urinary calculi; Z86.718 Personal history of other venous thrombosis and embolism; Z88.8 Allergy status to other drugs, medicaments and biological substances; Z79.01 Long term (current) use of anticoagulants; Z79.899 Other long term (current) drug therapy; Z68.33 Body mass index [BMI] 33.0-33.9, adult
CPT/HCPCS: 36415; 36600; 71045; 71270; 80048; 80053; 80076; 81003; 82306; 82435; 82550; 82607; 82728; 82803; 82947; 82948; 83540; 83550; 83605; 83735; 83880; 84132; 84145; 84295; 84425; 84484; 85018; 85025; 85027; 85378; 85610; 85730; 86140; 87040; 87077; 87088; 87186; 87635; 87804; 93005; 93306; 93356; 93970; 94660; 99291; C9803; G0378; J0692; J0696; J1100; J1650; J1756; J1815; J2543; J2920; J2930; J3420; J3475; J3490; J7050; Q0167; Q9967

== ENCOUNTER 2022-05-21 14:27 | Emergency (ER) | payer MEDICARE ==
[~2022-05-21] VITALS: Ht 167.6 cm; Wt 96.2 kg
[~2022-05-21 14:27] MED LIST changes: -PRED10TA3 PO; +PRED20TA3 PO; -ROPI3TAB5 PO; -SERT-440 PO; -TRAZ150T79 PO; -TYL4 PO
[2022-05-21 15:09] LABS: BASOPHILS % (AUTO) 0.2 % (0.0-5.0); EOSINOPHILS % (AUTO) 0.1 % (0.0-8.0); HEMATOCRIT 38.4 % (42-54); LYMPHOCYTES % (AUTO) 3.7 % (21.0-51.0); MEAN CORPUSCULAR HEMOGLOBIN 24.4 pg (27.0-33.0); MEAN CORPUSCULAR HGB CONC 29.7 g/dL (32.0-36.0); MEAN CORPUSCULAR VOLUME 82.2 fL (79-99); MONOCYTES % (AUTO) 2.5 % (3.0-13.0); NEUTROPHILS % (AUTO) 92.8 % (40.0-77.0); PLATELET COUNT (AUTO) 287 K/uL (130-400); RED BLOOD CELL COUNT(AUTO) 4.67 MIL/uL (4.50-6.20); RED CELL DISTRIBUTION WIDTH 25.7 % (11.0-15.5); WHITE BLOOD COUNT (AUTO) 13.4 K/uL (4.8-10.8)
[2022-05-21 15:18] LABS: CREATININE 0.9 mg/dL (0.5-1.5); POTASSIUM 3.8 mmol/L (3.5-5.1)
[2022-05-21 15:20] LABS: INR 0.93 (0.85-1.15); PROTHROMBIN TIME 9.7 SEC (9.6-11.6)
[2022-05-21 15:21] LABS: PARTIAL THROMBOPLASTIN TIME 23.2 SEC (26.3-35.5)
[2022-05-21 15:22] LABS: ALBUMIN 3.3 g/dL (3.5-5.0); TOTAL PROTEIN, SERUM 6.9 g/dL (6.0-8.3)
[2022-05-21] MEDS ORDERED: METOCLOPRAMIDE 10 MG/2 ML VIAL IVP ONE (16:00)
[2022-05-21] MEDS ORDERED: 0.9% NACL 500ML IV.SOLN 500 ML IV ONE (16:00)
[2022-05-21] MEDS ORDERED: MORPHINE 4 MG SYG IVP ONE (16:00)
[2022-05-21] MEDS ORDERED: DiphenhydrAMINE HCL 50 MG/ML VIAL IV ONE (16:00)
[2022-05-21] MEDS ORDERED: IOHEXOL 350 MG/ML 100ML INFUS..BTL IV ONE (16:52)
[2022-05-21 16:58] LABS: APPEARANCE,URINE CLEAR (CLEAR); BILIRUBIN,URINE NEGATIVE (NEGATIVE); COLOR,URINE YELLOW (YELLOW); GLUCOSE, URINE (UA) 250 mg/dL (NEGATIVE); KETONES,URINE NEGATIVE (NEGATIVE); LEUKOCYTE ESTERASE ,URINE NEGATIVE (NEGATIVE); NITRATE,URINE NEGATIVE (NEGATIVE); OCCULT BLOOD,URINE NEGATIVE (NEGATIVE); PH,URINE 6.5 (5.0-8.0); PROTEIN,URINE NEGATIVE (NEGATIVE); UROBILINOGEN,URINE 0.2 mg/dL (0.2-1.0)
[2022-05-21 17:07] LABS: BACTERIA,URINE Rare /HPF (None Seen); RBC,URINE None Seen /HPF (0-1); WBC,URINE 0-1 /HPF (0-1)
[2022-05-21 17:50] VITALS: BP 113/66
== END 2022-05-21 18:05 | disposition home or self-care (01) ==
LOC: EDH 14:27
DX: R10.32 Left lower quadrant pain (principal); K62.5 Hemorrhage of anus and rectum; F31.9 Bipolar disorder, unspecified; F41.9 Anxiety disorder, unspecified; Z79.52 Long term (current) use of systemic steroids; Z88.1 Allergy status to other antibiotic agents; Z88.2 Allergy status to sulfonamides; Z88.5 Allergy status to narcotic agent; Z88.8 Allergy status to other drugs, medicaments and biological substances; Z90.49 Acquired absence of other specified parts of digestive tract; Z98.84 Bariatric surgery status
CPT/HCPCS: 99285; 74177; 96374; 71045; 96375; 82270; 84484; 80053; 85025; 85610; 85730; 81001; 36415; 93005; J7040; J1200; J2270; J2765; Q9967

== ENCOUNTER 2022-08-29 15:03 | Emergency (ER) | payer OTHER, MEDICARE ==
[~2022-08-29] VITALS: Ht 167.6 cm; Wt 103.0 kg
[2022-08-29 15:11] VITALS: BP 122/76
[2022-08-29 16:11] LABS: BASOPHILS % (AUTO) 0.7 % (0.0-5.0); EOSINOPHILS % (AUTO) 0.4 % (0.0-8.0); HEMATOCRIT 36.7 % (42-54); LYMPHOCYTES % (AUTO) 6.3 % (21.0-51.0); MEAN CORPUSCULAR HGB CONC 32.2 g/dL (32.0-36.0); MEAN CORPUSCULAR VOLUME 90.2 fL (79-99); MONOCYTES % (AUTO) 6.7 % (3.0-13.0); PLATELET COUNT (AUTO) 235 K/uL (130-400); RED BLOOD CELL COUNT(AUTO) 4.07 MIL/uL (4.50-6.20); RED CELL DISTRIBUTION WIDTH 15.9 % (11.0-15.5); WHITE BLOOD COUNT (AUTO) 12.1 K/uL (4.8-10.8)
[2022-08-29 16:27] LABS: POTASSIUM 4.2 mmol/L (3.5-5.1)
[2022-08-29] MEDS ORDERED: ACETAMINOPHEN 500 MG TABLET PO SCH (16:30)
[2022-08-29 16:33] LABS: ALBUMIN 3.2 g/dL (3.5-5.0); TOTAL PROTEIN, SERUM 6.4 g/dL (6.0-8.3)
[2022-08-29] MEDS ORDERED: ACET-2247 PO (17:29)
== END 2022-08-29 17:54 | disposition home or self-care (01) ==
LOC: EDH 15:03
DX: M79.662 Pain in left lower leg (principal); I51.7 Cardiomegaly; E66.01 Morbid (severe) obesity due to excess calories; I50.9 Heart failure, unspecified; N19 Unspecified kidney failure; Z68.36 Body mass index [BMI] 36.0-36.9, adult; Z88.0 Allergy status to penicillin; Z88.6 Allergy status to analgesic agent
CPT/HCPCS: 36415; 71045; 80053; 84484; 85025; 93005; 93971

== ENCOUNTER 2022-11-28 18:53 | Observation (INO) | payer OTHER, MEDICARE ==
[~2022-11-28] VITALS: Ht 167.6 cm; Wt 102.5 kg
[~2022-11-28 18:53] MED LIST changes: +ACET-2247 PO
[2022-11-28 19:12] LABS: BASOPHILS % (AUTO) 0.8 % (0.0-5.0); EOSINOPHILS % (AUTO) 0.5 % (0.0-8.0); LYMPHOCYTES % (AUTO) 8.7 % (21.0-51.0); MEAN CORPUSCULAR HEMOGLOBIN 28.2 pg (27.0-33.0); MEAN CORPUSCULAR VOLUME 88.2 fL (79-99); MONOCYTES % (AUTO) 8.5 % (3.0-13.0); NEUTROPHILS % (AUTO) 80.7 % (40.0-77.0); PLATELET COUNT (AUTO) 224 K/uL (130-400); RED BLOOD CELL COUNT(AUTO) 4.65 MIL/uL (4.50-6.20); RED CELL DISTRIBUTION WIDTH 15.9 % (11.0-15.5)
[2022-11-28] MEDS ORDERED: ALBUTEROL 0.083% 2.5 MG/3 ML INH IH ONE ×2 (19:21→19:30)
[2022-11-28 19:40] LABS: ALBUMIN 3.3 g/dL (3.5-5.0); CREATININE 1.1 mg/dL (0.5-1.5); MAGNESIUM 1.7 mg/dL (1.80-2.40); POTASSIUM 4.4 mmol/L (3.5-5.1); TOTAL PROTEIN, SERUM 7.3 g/dL (6.0-8.3)
[2022-11-28] MEDS ORDERED: ONDANSETRON 4MG INJ ONE (20:00)
[2022-11-28] MEDS ORDERED: MORPHINE 2 MG SYG IVP ONE ×2 (20:00→22:00)
[2022-11-28] MEDS ORDERED: MORPHINE 2 MG SYG ONE (20:01)
[2022-11-28] MEDS ORDERED: IOHEXOL 350 MG/ML 100ML INFUS..BTL IV ONE (20:16)
[2022-11-28 21:08] LABS: INR 0.93 (0.85-1.15); PROTHROMBIN TIME 9.8 SEC (9.6-11.6)
[2022-11-28 21:09] LABS: PARTIAL THROMBOPLASTIN TIME 21.7 SEC (26.3-35.5)
[2022-11-28] MEDS ORDERED: MAGNESIUM 2GM PREMIX 50ML 50 ML IV SCH (23:00)
[2022-11-29] MEDS ORDERED: HYDRALAZINE 20MG/ML VIAL IV PRN (01:00)
[2022-11-29] MEDS ORDERED: MAGNESIUM 2GM PREMIX 50ML 50 ML IV PRN (01:00)
[2022-11-29] MEDS ORDERED: DOCUSATE SODIUM 100 MG CAP PO PRN (01:00)
[2022-11-29] MEDS ORDERED: ACETAMINOPHEN 325 MG TAB PO PRN (01:00)
[2022-11-29] MEDS ORDERED: LACTULOSE 20 GM/30 ML UDCUP PO PRN (01:00)
[2022-11-29] MEDS ORDERED: CLONIDINE HCL 0.1 MG TABLET PO PRN (01:00)
[2022-11-29] MEDS ORDERED: MORPHINE 2 MG SYG IVP ONE (01:00)
[2022-11-29] MEDS ORDERED: ONDANSETRON 4MG INJ IVP PRN (01:00)
[2022-11-29 01:50] LABS: APPEARANCE,URINE CLEAR (CLEAR); BILIRUBIN,URINE NEGATIVE (NEGATIVE); COLOR,URINE LIGHT-YELLOW (YELLOW); GLUCOSE, URINE (UA) NEGATIVE (NEGATIVE); KETONES,URINE NEGATIVE (NEGATIVE); LEUKOCYTE ESTERASE ,URINE NEGATIVE Leu/uL (NEGATIVE); NITRATE,URINE NEGATIVE (NEGATIVE); OCCULT BLOOD,URINE NEGATIVE (NEGATIVE); PROTEIN,URINE 20 mg/dL (NEGATIVE); UROBILINOGEN,URINE 0.2 mg/dL (0.2-1.0)
[2022-11-29 02:25] VITALS: BP 149/68
[2022-11-29] MEDS ORDERED: FURO40TA5 PO (02:48)
[2022-11-29] MEDS ORDERED: THEO400T3 PO (02:48)
[2022-11-29] MEDS ORDERED: CARI3CAP PO (02:48)
[2022-11-29] MEDS ORDERED: SERT-440 PO (02:48)
[2022-11-29] MEDS ORDERED: METO-408 PO (02:48)
[2022-11-29] MEDS ORDERED: ACET1TAB97 PO (02:48)
[2022-11-29] MEDS ORDERED: ROPI4TAB6 PO (02:48)
[2022-11-29] MEDS ORDERED: ACETAMINOPHEN PO SCH (03:30)
[2022-11-29] MEDS ORDERED: CODEINE PO SCH (03:30)
[2022-11-29 08:00] VITALS: BP 113/71
[2022-11-29] MEDS: ROPINIROLE HCL 1 MG TABLET PO SCH ×2 (08:22→13:54)
[2022-11-29] MEDS: CLONAZEPAM 1MG TAB PO SCH ×2 (08:22→13:54)
[2022-11-29] MEDS ORDERED: VRAYLAR PO SCH (09:00)
[2022-11-29] MEDS ORDERED: PREDNISONE 20 MG TABLET PO SCH (09:00)
[2022-11-29] MEDS ORDERED: METOPROLOL SUCCINATE 25 MG TAB.SR.24H PO SCH (09:00)
[2022-11-29] MEDS ORDERED: SERTRALINE HCL 50 MG TABLET PO SCH (09:00)
[2022-11-29] MEDS ORDERED: ENOXAPARIN SODIUM 40 MG/0.4 ML SYRINGE SQ SCH (09:00)
[2022-11-29] MEDS ORDERED: FUROSEMIDE 40 MG TABLET PO SCH (09:00)
[2022-11-29] MEDS ORDERED: PANTOPRAZOLE 40 MG TAB DR PO SCH (09:00)
[2022-11-29 12:00] VITALS: BP 85/57
[2022-11-29] MEDS: GABAPENTIN 100 MG CAPSULE PO SCH ×2 (12:02→13:54)
[2022-11-29] MEDS ORDERED: GABA100C PO (15:12)
[2022-11-29 16:00] VITALS: BP 106/57
[2022-11-29] MEDS ORDERED: THEOPHYLLINE ANHYDROUS 100 MG CAP.ER.24H PO SCH (21:00)
== END 2022-11-29 17:20 | disposition home or self-care (01) ==
LOC: EDH 18:53 → EDHIP 11-29 00:32 → 3DH 11-29 02:19
PROVIDERS: ADMIT Internal Medicine Pulmonary Disease; ATTEND Internal Medicine Pulmonary Disease
DX: R07.89 Other chest pain (principal); Z20.822 Contact with and (suspected) exposure to COVID-19; M79.604 Pain in right leg; D86.9 Sarcoidosis, unspecified; I48.91 Unspecified atrial fibrillation; I73.9 Peripheral vascular disease, unspecified; E83.42 Hypomagnesemia; E66.01 Morbid (severe) obesity due to excess calories; D64.9 Anemia, unspecified; F39 Unspecified mood [affective] disorder; Z79.52 Long term (current) use of systemic steroids; Z86.718 Personal history of other venous thrombosis and embolism; Z98.84 Bariatric surgery status; Z95.810 Presence of automatic (implantable) cardiac defibrillator; Z79.899 Other long term (current) drug therapy; Z98.890 Other specified postprocedural states; Z68.36 Body mass index [BMI] 36.0-36.9, adult
CPT/HCPCS: 96376 ×2; 96365; 96375; 99285; 83735; 84484 ×4; 80053; 85025; 85610; 85730; 87804 ×2; 87635; 71045; 71270; 93971; 93005; 94640; 96372; 96366; 81003; 36415; 93926; 97161; C9803; J3475; J2405; Q9967; G0378 ×17; J1650

== ENCOUNTER 2022-12-09 18:46 | Emergency (ER) | payer OTHER, MEDICARE ==
[~2022-12-09] VITALS: Ht 167.6 cm; Wt 95.3 kg
[~2022-12-09 18:46] MED LIST changes: +ACET1TAB97 PO; +CARI3CAP PO; +FURO40TA5 PO; +GABA100C PO; +METO-408 PO; +ROPI4TAB6 PO; +SERT-440 PO; +THEO400T3 PO
[2022-12-09 19:38] LABS: BASOPHILS % (AUTO) 0.4 % (0.0-5.0); EOSINOPHILS % (AUTO) 0.4 % (0.0-8.0); HEMATOCRIT 41.5 % (42-54); LYMPHOCYTES % (AUTO) 8.5 % (21.0-51.0); MEAN CORPUSCULAR HEMOGLOBIN 28.2 pg (27.0-33.0); MEAN CORPUSCULAR HGB CONC 31.3 g/dL (32.0-36.0); MONOCYTES % (AUTO) 6.5 % (3.0-13.0); NEUTROPHILS % (AUTO) 83.5 % (40.0-77.0); PLATELET COUNT (AUTO) 262 K/uL (130-400); RED BLOOD CELL COUNT(AUTO) 4.61 MIL/uL (4.50-6.20); WHITE BLOOD COUNT (AUTO) 12.7 K/uL (4.8-10.8)
[2022-12-09 19:48] LABS: CREATININE 1.1 mg/dL (0.5-1.5); POTASSIUM 4.2 mmol/L (3.5-5.1)
[2022-12-09 19:53] LABS: ALBUMIN 3.3 g/dL (3.5-5.0); TOTAL PROTEIN, SERUM 7.2 g/dL (6.0-8.3)
[2022-12-09 20:17] LABS: APPEARANCE,URINE CLEAR (CLEAR); BILIRUBIN,URINE NEGATIVE (NEGATIVE); COLOR,URINE COLORLESS (YELLOW); GLUCOSE, URINE (UA) NEGATIVE (NEGATIVE); KETONES,URINE NEGATIVE (NEGATIVE); LEUKOCYTE ESTERASE ,URINE NEGATIVE Leu/uL (NEGATIVE); NITRATE,URINE NEGATIVE (NEGATIVE); OCCULT BLOOD,URINE NEGATIVE (NEGATIVE); PH,URINE 6.5 (5.0-8.0); PROTEIN,URINE NEGATIVE (NEGATIVE); UROBILINOGEN,URINE 0.2 mg/dL (0.2-1.0)
[2022-12-09] MEDS ORDERED: MORPHINE 4 MG SYG IVP STA (20:20)
[2022-12-09] MEDS ORDERED: METOCLOPRAMIDE 10 MG/2 ML VIAL IVP ONE (20:30)
[2022-12-09] MEDS ORDERED: IOHEXOL 350 MG/ML 100ML INFUS..BTL IV ONE (22:58)
[2022-12-09] MEDS ORDERED: MORPHINE 4 MG SYG IVP ONE (23:00)
[2022-12-10 02:03] VITALS: BP 139/82
== END 2022-12-10 02:05 | disposition home or self-care (01) ==
LOC: EDH 18:46
DX: G89.4 Chronic pain syndrome (principal); R07.89 Other chest pain; I11.0 Hypertensive heart disease with heart failure; I50.9 Heart failure, unspecified; D86.9 Sarcoidosis, unspecified; E66.09 Other obesity due to excess calories; Z68.33 Body mass index [BMI] 33.0-33.9, adult; Z79.899 Other long term (current) drug therapy; Z88.1 Allergy status to other antibiotic agents; Z88.2 Allergy status to sulfonamides; Z88.5 Allergy status to narcotic agent; Z88.8 Allergy status to other drugs, medicaments and biological substances; Z86.718 Personal history of other venous thrombosis and embolism; Z98.890 Other specified postprocedural states
CPT/HCPCS: 99285; 84484 ×2; 80053; 85025; 85651; 86140; 81001; 36415; 71045; 71275; 96374; 96375; 96376; 93005; J2270 ×2; J2765; Q9967

== ENCOUNTER 2023-03-08 02:44 | Emergency (ER) | payer OTHER, MEDICARE ==
[~2023-03-08] VITALS: Ht 167.6 cm; Wt 102.1 kg
[2023-03-08] MEDS ORDERED: HYDROCODONE/ACETAMINOPHEN 5/325 MG TAB PO ONE (07:30)
[2023-03-08 08:40] LABS: BASOPHILS % (AUTO) 1.5 % (0.0-5.0); HEMATOCRIT 41.3 % (42-54); LYMPHOCYTES % (AUTO) 11.2 % (21.0-51.0); MEAN CORPUSCULAR HEMOGLOBIN 29.1 pg (27.0-33.0); MEAN CORPUSCULAR HGB CONC 31.2 g/dL (32.0-36.0); MONOCYTES % (AUTO) 9.3 % (3.0-13.0); NEUTROPHILS % (AUTO) 71.5 % (40.0-77.0); PLATELET COUNT (AUTO) 256 K/uL (130-400); RED BLOOD CELL COUNT(AUTO) 4.44 MIL/uL (4.50-6.20); RED CELL DISTRIBUTION WIDTH 16.7 % (11.0-15.5); WHITE BLOOD COUNT (AUTO) 10.1 K/uL (4.8-10.8)
[2023-03-08 08:51] LABS: ALBUMIN 3.6 g/dL (3.5-5.0); CREATININE 0.8 mg/dL (0.5-1.5); POTASSIUM 3.9 mmol/L (3.5-5.1)
[2023-03-08 09:05] LABS: B-TYPE NATRIURETIC PEPTIDE 44 pg/mL (0-100)
[2023-03-08] MEDS ORDERED: [UNRECOGNIZED DRUG - CODE] MC ×2 (09:37→09:40)
[2023-03-08] MEDS ORDERED: AMOX-420 PO (09:37)
[2023-03-08 10:02] VITALS: BP 119/78
== END 2023-03-08 10:09 | disposition home or self-care (01) ==
LOC: EDH 02:44
DX: J40 Bronchitis, not specified as acute or chronic (principal); B37.2 Candidiasis of skin and nail; R07.89 Other chest pain; J84.10 Pulmonary fibrosis, unspecified; J44.9 Chronic obstructive pulmonary disease, unspecified; E66.09 Other obesity due to excess calories; Z20.822 Contact with and (suspected) exposure to COVID-19; Z68.36 Body mass index [BMI] 36.0-36.9, adult; Z98.890 Other specified postprocedural states; Z79.899 Other long term (current) drug therapy; Z98.84 Bariatric surgery status; Z88.1 Allergy status to other antibiotic agents; Z88.2 Allergy status to sulfonamides; Z88.5 Allergy status to narcotic agent; Z88.8 Allergy status to other drugs, medicaments and biological substances
CPT/HCPCS: 99284; 71046; 87635; 80053; 83880; 85025; 87807; 87804 ×2; 36415; C9803

== ENCOUNTER 2023-03-24 20:38 | Observation (INO) | payer OTHER, MEDICARE ==
[~2023-03-24] VITALS: Ht 167.6 cm; Wt 102.0 kg
[~2023-03-24 20:38] MED LIST changes: +AMOX-420 PO; +[UNRECOGNIZED DRUG - CODE] MC
[2023-03-24 21:20] LABS: BASOPHILS % (AUTO) 1.3 % (0.0-5.0); EOSINOPHILS % (AUTO) 1.8 % (0.0-8.0); HEMATOCRIT 41.1 % (42-54); LYMPHOCYTES % (AUTO) 11.7 % (21.0-51.0); MEAN CORPUSCULAR HEMOGLOBIN 29.6 pg (27.0-33.0); MEAN CORPUSCULAR HGB CONC 33.1 g/dL (32.0-36.0); MEAN CORPUSCULAR VOLUME 89.3 fL (79-99); MONOCYTES % (AUTO) 9.4 % (3.0-13.0); PLATELET COUNT (AUTO) 280 K/uL (130-400); RED CELL DISTRIBUTION WIDTH 15.7 % (11.0-15.5); WHITE BLOOD COUNT (AUTO) 8.9 K/uL (4.8-10.8)
[2023-03-24] MEDS ORDERED: BENZONATATE 100 MG CAPSULE PO ONE (21:30)
[2023-03-24 21:33] LABS: ALBUMIN 3.8 g/dL (3.5-5.0); CREATININE 0.9 mg/dL (0.5-1.5); TOTAL PROTEIN, SERUM 7.2 g/dL (6.0-8.3)
[2023-03-24 21:36] LABS: POTASSIUM 2.6 mmol/L (3.5-5.1)
[2023-03-24] MEDS ORDERED: POTASSIUM BICARB/CIT AC 25 MEQ TABLET.EFF PO ONE ×2 (22:00→23:00)
[2023-03-25] VITALS (7 sets, daily range): BP systolic 112–134; BP diastolic 57–78
[2023-03-25] MEDS ORDERED: HYDRALAZINE 20MG/ML VIAL IV PRN (01:00)
[2023-03-25] MEDS ORDERED: DOCUSATE SODIUM 100 MG CAP PO PRN (01:00)
[2023-03-25] MEDS ORDERED: ACETAMINOPHEN 650 MG SUPPOSITORY RC PRN (01:00)
[2023-03-25] MEDS ORDERED: HYDROCODONE/ACETAMINOPHEN 5/325 MG TAB PO PRN ×3 (01:00→10:30)
[2023-03-25] MEDS ORDERED: ACETAMINOPHEN 325 MG TAB PO PRN (01:00)
[2023-03-25] MEDS ORDERED: FUROSEMIDE 20 MG TABLET PO SCH (01:30)
[2023-03-25] MEDS ORDERED: PHARMACY COMMUNICATION MISC SCH ×3 (01:30→02:30)
[2023-03-25] MEDS ORDERED: KCL 20 MEQ ERTAB PO ONE ×2 (02:00)
[2023-03-25] MEDS ORDERED: GUAIFENESIN-CODEINE 5 ML SYRUP PO PRN (02:30)
[2023-03-25] MEDS: ALBUTEROL 0.083% 2.5 MG/3 ML INH IH PRN ×3 (03:07→14:00)
[2023-03-25] MEDS: LACTATED RINGERS 1000ML 1,000 ML IV SCH ×2 (03:55→10:20)
[2023-03-25] MEDS: ASCORBIC ACID 500 MG TAB PO SCH (10:20)
[2023-03-25] MEDS: PREDNISONE 10 MG TABLET PO SCH (10:20)
[2023-03-25 11:28] LABS: APPEARANCE,URINE CLEAR (CLEAR); BILIRUBIN,URINE NEGATIVE (NEGATIVE); COLOR,URINE YELLOW (YELLOW); GLUCOSE, URINE (UA) NEGATIVE (NEGATIVE); KETONES,URINE NEGATIVE (NEGATIVE); LEUKOCYTE ESTERASE ,URINE 25 Leu/uL (NEGATIVE); NITRATE,URINE NEGATIVE (NEGATIVE); OCCULT BLOOD,URINE NEGATIVE (NEGATIVE); PH,URINE 5.5 (5.0-8.0); PROTEIN,URINE NEGATIVE (NEGATIVE); UROBILINOGEN,URINE 0.2 mg/dL (0.2-1.0)
[2023-03-25 11:41] LABS: BACTERIA,URINE RARE /HPF (None Seen); MUCUS,URINE RARE LPF (None Seen); RBC,URINE 0-1 /HPF (0-1); SQUAMOUS EPITHELIAL CELL,UR RARE /HPF (0-2)
[2023-03-25] MEDS ORDERED: FURO80TA3 PO (14:17)
[2023-03-25] MEDS ORDERED: CARI4.5C PO (14:17)
[2023-03-25] MEDS: METRONIDAZOLE 500MG/100ML BAG 100 ML IVPB SCH ×2 (15:17→20:00)
[2023-03-25] MEDS ORDERED: ROPINIROLE HCL 1 MG TABLET PO SCH (15:58)
[2023-03-25] MEDS ORDERED: CARIPRAZINE HYDROCHLORIDE 4.5 MG PO SCH (16:00)
[2023-03-25] MEDS ORDERED: CLONAZEPAM 1MG TAB PO SCH (16:00)
[2023-03-25] MEDS ORDERED: SERTRALINE HCL 50 MG TABLET PO SCH (16:00)
[2023-03-25 17:52] LABS: MAGNESIUM 1.7 mg/dL (1.80-2.40); POTASSIUM 4.5 mmol/L (3.5-5.1)
[2023-03-25] MEDS: ACETAMINOPHEN WITH CODEINE 1 TAB TAB PO SCH ×2 (18:04→21:37)
[2023-03-25] MEDS: CLONAZEPAM 1MG TAB PO SCH (20:08)
[2023-03-25] MEDS: GABAPENTIN 100 MG CAPSULE PO SCH (20:08)
[2023-03-25] MEDS: ROPINIROLE HCL 4 MG PO SCH (20:09)
[2023-03-25] MEDS: NYSTATIN 15 GM POWDER TP SCH ×2 (20:39→21:34)
[2023-03-26] MEDS: ACETAMINOPHEN WITH CODEINE 1 TAB TAB PO SCH ×2 (03:33→09:26)
[2023-03-26 04:00] VITALS: BP 120/64
[2023-03-26 04:46] LABS: BASOPHILS % (AUTO) 1.6 % (0.0-5.0); EOSINOPHILS % (AUTO) 7.3 % (0.0-8.0); HEMATOCRIT 37.7 % (42-54); LYMPHOCYTES % (AUTO) 9.8 % (21.0-51.0); MEAN CORPUSCULAR HEMOGLOBIN 29.4 pg (27.0-33.0); MEAN CORPUSCULAR HGB CONC 31.3 g/dL (32.0-36.0); MEAN CORPUSCULAR VOLUME 93.8 fL (79-99); MONOCYTES % (AUTO) 11.4 % (3.0-13.0); NEUTROPHILS % (AUTO) 69.4 % (40.0-77.0); PLATELET COUNT (AUTO) 253 K/uL (130-400); RED BLOOD CELL COUNT(AUTO) 4.02 MIL/uL (4.50-6.20); RED CELL DISTRIBUTION WIDTH 15.8 % (11.0-15.5); WHITE BLOOD COUNT (AUTO) 7.5 K/uL (4.8-10.8)
[2023-03-26 05:01] LABS: CREATININE 0.8 mg/dL (0.5-1.5); MAGNESIUM 1.8 mg/dL (1.80-2.40); PHOSPHORUS 3.9 mg/dL (2.5-4.9); POTASSIUM 4.3 mmol/L (3.5-5.1)
[2023-03-26] MEDS: METRONIDAZOLE 500MG/100ML BAG 100 ML IVPB SCH (05:06)
[2023-03-26 08:00] VITALS: BP 147/79
[2023-03-26] MEDS ORDERED: CARIPRAZINE HYDROCHLORIDE 4.5 MG PO SCH (09:00)
[2023-03-26] MEDS ORDERED: SERTRALINE HCL 50 MG TABLET PO SCH (09:00)
[2023-03-26] MEDS: ROPINIROLE HCL 4 MG PO SCH (09:00)
[2023-03-26] MEDS ORDERED: METOPROLOL SUCCINATE 25 MG TAB.SR.24H PO SCH (09:00)
[2023-03-26] MEDS: CLONAZEPAM 1MG TAB PO SCH (09:25)
[2023-03-26] MEDS: GABAPENTIN 100 MG CAPSULE PO SCH (09:26)
[2023-03-26] MEDS: ASCORBIC ACID 500 MG TAB PO SCH (09:26)
[2023-03-26] MEDS: PREDNISONE 10 MG TABLET PO SCH (09:30)
[2023-03-26] MEDS ORDERED: FUROSEMIDE 40 MG TABLET PO ONE (11:00)
[2023-03-26] MEDS ORDERED: METR-172 PO (11:45)
[2023-03-26] MEDS ORDERED: FURO40TA7 PO (11:45)
[2023-03-26] MEDS ORDERED: PRED10B PO (11:45)
[2023-03-26] MEDS ORDERED: LEVO-70 PO (11:45)
[2023-03-26 12:00] VITALS: BP 126/80
[2023-03-26] MEDS ORDERED: FUROSEMIDE 40 MG TABLET PO SCH (17:00)
== END 2023-03-26 15:00 | disposition home or self-care (01) ==
LOC: EDH 20:38 → EDHIP 03-25 00:54 → 4DH 03-25 09:00
PROVIDERS: ADMIT Internal Medicine Pulmonary Disease; ATTEND Internal Medicine Pulmonary Disease
DX: E86.0 Dehydration (principal); R19.7 Diarrhea, unspecified; R55 Syncope and collapse; D86.89 Sarcoidosis of other sites; J84.115 Respiratory bronchiolitis interstitial lung disease; I49.9 Cardiac arrhythmia, unspecified; R06.89 Other abnormalities of breathing; E87.1 Hypo-osmolality and hyponatremia; E87.6 Hypokalemia; F32.A Depression, unspecified; I10 Essential (primary) hypertension; E66.01 Morbid (severe) obesity due to excess calories; I25.10 Atherosclerotic heart disease of native coronary artery without angina pectoris; J44.9 Chronic obstructive pulmonary disease, unspecified; Z86.73 Personal history of transient ischemic attack (TIA), and cerebral infarction without residual deficits; J84.10 Pulmonary fibrosis, unspecified; R56.9 Unspecified convulsions; Z86.16 Personal history of COVID-19; Z95.0 Presence of cardiac pacemaker; Z98.84 Bariatric surgery status; Z79.899 Other long term (current) drug therapy
CPT/HCPCS: 84484 ×2; 80053; 85025 ×2; 36415 ×3; 71045 ×2; 93005; 94640 ×3; 96361; 96365; 96366 ×2; 99285; 82550; 83735 ×2; 83874; 84132 ×2; 87046; 87804 ×2; 81001; 87635; 93306; 93356; 94664; 83630; 84100; 80048; 82948; G0378 ×36; J3490 ×2; J7512 ×3

== ENCOUNTER 2023-04-09 20:38 | Emergency (ER) | payer OTHER, MEDICARE ==
[~2023-04-09] VITALS: Ht 167.6 cm; Wt 102.1 kg
[~2023-04-09 20:38] MED LIST changes: -AMOX-420 PO; -CARI3CAP PO; +CARI4.5C PO; -FURO40TA5 PO; +FURO40TA7 PO; +LEVO-70 PO; +METR-172 PO; +PRED10B PO; -PRED20TA3 PO; -THEO400T3 PO
[2023-04-09] MEDS ORDERED: LIDOCAINE HCL-MPF 2% 5ML VIAL ONE (21:29)
[2023-04-09 21:30] LABS: BASOPHILS % (AUTO) 0.8 % (0.0-5.0); EOSINOPHILS % (AUTO) 1.3 % (0.0-8.0); HEMATOCRIT 43.4 % (42-54); LYMPHOCYTES % (AUTO) 13.5 % (21.0-51.0); MEAN CORPUSCULAR HEMOGLOBIN 29.4 pg (27.0-33.0); MEAN CORPUSCULAR HGB CONC 32.9 g/dL (32.0-36.0); MEAN CORPUSCULAR VOLUME 89.3 fL (79-99); MONOCYTES % (AUTO) 13.3 % (3.0-13.0); NEUTROPHILS % (AUTO) 70.8 % (40.0-77.0); PLATELET COUNT (AUTO) 274 K/uL (130-400); RED BLOOD CELL COUNT(AUTO) 4.86 MIL/uL (4.50-6.20); RED CELL DISTRIBUTION WIDTH 15.3 % (11.0-15.5); WHITE BLOOD COUNT (AUTO) 10.2 K/uL (4.8-10.8)
[2023-04-09] MEDS ORDERED: PHARMACY COMMUNICATION MISC SCH (21:30)
[2023-04-09] MEDS ORDERED: METOCLOPRAMIDE 10 MG/2 ML VIAL IVP ONE (21:30)
[2023-04-09] MEDS ORDERED: 0.9% NACL 500ML IV.SOLN 500 ML IV ONE (21:30)
[2023-04-09 21:37] LABS: APPEARANCE,URINE CLEAR (CLEAR); BILIRUBIN,URINE NEGATIVE (NEGATIVE); COLOR,URINE COLORLESS (YELLOW); GLUCOSE, URINE (UA) NEGATIVE (NEGATIVE); KETONES,URINE NEGATIVE (NEGATIVE); LEUKOCYTE ESTERASE ,URINE NEGATIVE Leu/uL (NEGATIVE); NITRATE,URINE NEGATIVE (NEGATIVE); OCCULT BLOOD,URINE NEGATIVE (NEGATIVE); PH,URINE 5.5 (5.0-8.0); PROTEIN,URINE NEGATIVE (NEGATIVE); UROBILINOGEN,URINE 0.2 mg/dL (0.2-1.0)
[2023-04-09 21:42] LABS: BACTERIA,URINE RARE /HPF (None Seen); MUCUS,URINE RARE LPF (None Seen); OTHER CASTS, URINE 1 /LPF (None Seen); RBC,URINE 0-1 /HPF (0-1); SQUAMOUS EPITHELIAL CELL,UR RARE /HPF (0-2); WBC,URINE 0-1 /HPF (0-1)
[2023-04-09 21:49] LABS: CREATININE 0.9 mg/dL (0.5-1.5); POTASSIUM 3.6 mmol/L (3.5-5.1)
[2023-04-09 21:53] LABS: ALBUMIN 3.6 g/dL (3.5-5.0); TOTAL PROTEIN, SERUM 6.8 g/dL (6.0-8.3)
[2023-04-09] MEDS ORDERED: CYCL-309 PO (23:47)
[2023-04-09] MEDS ORDERED: LIDOP TD (23:47)
[2023-04-09 23:50] VITALS: BP 163/88
== END 2023-04-10 00:07 | disposition home or self-care (01) ==
LOC: EDH 20:38
DX: R10.9 Unspecified abdominal pain (principal); I10 Essential (primary) hypertension; J44.9 Chronic obstructive pulmonary disease, unspecified; Z88.6 Allergy status to analgesic agent; Z88.2 Allergy status to sulfonamides; Z88.5 Allergy status to narcotic agent; Z88.8 Allergy status to other drugs, medicaments and biological substances; Z79.899 Other long term (current) drug therapy
CPT/HCPCS: 99285; 74176; 96374; 80053; 83690; 85025; 81001; 36415; J3490; J2765

== ENCOUNTER → 2023-04-18 | Outpatient (CLI) | payer OTHER, MEDICARE ==
[~2023-04-18] MED LIST changes: +CYCL-309 PO; +LIDOP TD
[2023-04-18 16:58] LABS: MAGNESIUM 1.8 mg/dL (1.80-2.40); THYROID STIMULATING HORMONE 1.12 uIU/mL (0.36-3.74)
== END | disposition home or self-care (01) ==
LOC: LAB 11:27 → EDSEX 11:27
PROVIDERS: ATTEND Internal Medicine Cardiovascular Disease
DX: R60.9 Edema, unspecified (principal); I50.9 Heart failure, unspecified
CPT/HCPCS: 36415; 83735; 83880; 84439; 84443

== ENCOUNTER 2023-09-01 08:36 | Emergency (ER) | payer OTHER, MEDICARE ==
[~2023-09-01] VITALS: Ht 165.1 cm; Wt 86.2 kg
[~2023-09-01 08:36] MED LIST changes: +ROPI4TAB41 PO; -ROPI4TAB6 PO
[2023-09-01 08:47] VITALS: BP 120/80; PULSE 111; RESP 20
== END 2023-09-01 10:06 | disposition left against medical advice (07) ==
LOC: EDH 08:36
DX: M25.561 Pain in right knee (principal); Z53.21 Procedure and treatment not carried out due to patient leaving prior to being seen by health care provider
CPT/HCPCS: 99281